=== PATIENT | male | born 1975 | race Caucasian/White ===

== ENCOUNTER → 2020-01-23 14:01 | Outpatient (BNVA) | payer OTHER, SELFPAY | PROVIDERS: PCP Internal Medicine; Visit Provider Internal Medicine | DX: G47.33 Obstructive sleep apnea (adult) (pediatric) (principal); J30.9 Allergic rhinitis, unspecified; E66.8 Other obesity; Z68.34 Body mass index [BMI] 34.0-34.9, adult; Z99.89 Dependence on other enabling machines and devices | CPT/HCPCS: 99213 ==

== ENCOUNTER 2020-02-17 09:39 | Emergency (ER) | payer OTHER, SELFPAY ==
--- NOTE | 2020-02-17 09:53 | ED_ITS ---
HPI - Chest Pain General Chief Complaint: Chest Pain Stated Complaint: sob Time Seen by Provider: 02/17/20 09:53 Source: patient Mode of arrival: ambulatory Limitations: no limitations History of Present Illness MD complaint: chest pain Onset (ago): day(s) (last night) Timing of current episode: constant Prior episodes: No Onset: during rest Pain location: substernal Pain radiation: none Severity: moderate Quality: tightness Relieving factors: nothing Exacerbating factors: other (supine) Associated symptoms: nausea and dyspnea Treatment prior to arrival: none Related Data Home Medications Medication Instructions Recorded Confirmed albuterol sulfate 90 mcg/actuation 2 puff PO Q4-6H PRN 01/18/20 01/23/20 aerosol inhaler famotidine 20 mg tablet 20 mg PO BID 01/18/20 01/23/20 flu vacc [id number] 6mos up(PF) ml IM 01/18/20 01/23/20 fluticasone propionate 50 2 spray INTRANASAL DAILY 01/18/20 01/23/20 mcg/actuation nasal spray,suspension hydrochlorothiazide 12.5 mg tablet 12.5 mg PO DAILY 01/18/20 01/23/20 loratadine 10 mg tablet 10 mg PO DAILY 01/18/20 01/23/20 Previous Rx's Medication Instructions Recorded cyclobenzaprine 10 mg PO TID PRN #10 tab 02/17/20 Allergies Allergy/AdvReac Type Severity Reaction Status Date / Time No Known Drug Intolerances Allergy Mild UNKNOWN Verified 01/23/20 14:09 Review of Systems Review of Systems: Constitutional : No Weight loss, No Fever, No Chills ENT/Mouth : No sore throat, No Rhinorrhea Eyes: No Eye Pain, No Swelling Cardiovascular : pos Chest Pain, pos SOB, no Dyspnea on Exertion, No Orthopnea, No Edema, No Palpitations Respiratory : No Cough, No Sputum Gastrointestinal : pos Nausea, No Vomiting, No Diarrhea, No abdominal Pain, No Hematochezia, No Melena Genitourinary : No Dysuria, No Urinary Frequency Musculoskeletal : No joint pain, No Myalgias, No Joint Swelling Skin : No Skin Lesions, No rash Neuro : No Weakness, No Numbness, No Dizziness, No Headache Psych : No Anxiety/Panic, No Depression Heme/Lymph: No Bruising, No Lymphadenopathy Endocrine : No Polyuria, No Polydipsia All other systems reviewed and are negative [facility] Past Medical History Medical History Allergic rhinitis due to allergen Cough MARIAN (obstructive sleep apnea) MARIAN on CPAP Social History Social History Alcohol intake: never Smoking Status: Never smoker Use of substances other than those prescribed or required for medical reasons: No Advance Directives: No Advance Directives Information Provided: No Physical Exam Vital Signs: Vital Signs: Vital Signs Temp Pulse Resp BP Pulse Ox 02/17/20 09:55 98.1 F 81 16 119/71 96 Body Mass Index 35.2 Appearance: Alert. Oriented X3. No acute distress. Eyes: Pupils equal, round and reactive to light. ENT: Pharynx normal. Neck: Normal inspection. Neck supple. CVS: Normal heart rate and rhythm. Pulses normal. Respiratory: No respiratory distress. Breath sounds normal. Abdomen: Soft and nontender. Skin: Skin warm and dry. Normal skin color. Normal skin turgor. Extremities: No lower extremity edema. No calf ttp Neuro: Oriented X 3. No motor deficit. No sensory deficit. Course Course Course Narrative: negative workup stable for DC MDM - Chest Pain MDM Narrative Medical decision making narrative: 44 yo male with chronic coug and HTN, nonsmoker here with chest tightness since last night, does suffer from some anxiety, no recent infections at this time will need troponin x 1, CXR, EKG, IV Toradol for pain, distal symmetric pulses intact, PERC negative, low susp for ACS Lab Data Result diagrams: 02/17/20 10:24 02/17/20 10:24 Labs: Lab Results 02/17/20 02/17/20 02/17/20 Range/Units 10:24 10:24 10:24 WBC 6.5 (4.8-10.8) X10*3/uL RBC 5.00 (4.60-5.80) X10*6/uL Hgb 14.5 (14.0-18.0) g/dl Hct 43.7 (42-52) % MCV 87.4 (80-98) fL MCH 29.0 (27.0-33.0) pg MCHC 33.2 (31.0-36.0) g/dl RDW 13.2 (11.0-16.0) % Plt Count 245 (160-400) X10*3/uL MPV 10.4 (9.4-12.4) fL Immature Gran % (Auto) 0.6 H (0.0-0.4) % Neut % (Auto) 62.2 (45-73) % Lymph % (Auto) 28.2 (20-40) % [place] % (Auto) 5.4 (2-11) % Eos % (Auto) 3.1 (0-4) % Baso % (Auto) 0.5 (0-2) % Lymph # (Auto) 1.8 (1.2-4.9) X10*3/uL [place] # (Auto) 0.4 (0.1-1.2) X10*3/uL Eos # (Auto) 0.2 (0.0-0.4) X10*3/uL Baso # (Auto) 0.0 (0.0-0.2) X10*3/uL Abs Immat Gran (auto) 0.04 H (0.00-0.03) X10*3/uL Absolute Neuts (auto) 4.0 (2.0-8.3) X10*3/uL Absolute Nucleated RBC 0.000 (0.0-0.012) X10*3/uL Nucleated RBC % (auto) 0.0 (0.0-0.2) /100WBC Hold Blue Top Sodium 137 (135-145) mmol/L Potassium 4.3 (3.3-5.1) mmol/l Chloride 103 (96-108) mmol/L Carbon Dioxide 25 (22-29) mmol/L Anion Gap 13 (12-20) BUN 13 (9-16) mg/dL Creatinine 1.01 (0.5-1.4) mg/dL Estim Creat Clear Calc 111.9 Estimated GFR > 60 Random Glucose 142 H (60-115) mg/dL Calcium 8.9 (8.4-10.2) mg/dL Magnesium (1.6-2.6) mg/dL Total Bilirubin (0.0-1.0) mg/dL Direct Bilirubin (0.0-0.5) mg/dL AST (5-37) U/L ALT (0-40) U/L Alkaline Phosphatase (39-117) U/L Troponin I High Sens (<3.5-35.0) ng/L B-Natriuretic Peptide < 10 (<100) pg/mL Total Protein (6.5-8.0) g/dL Albumin (3.5-5.0) g/dL Lipase (8-78) U/L 02/17/20 02/17/20 02/17/20 Range/Units 10:24 10:24 10:24 WBC (4.8-10.8) X10*3/uL RBC (4.60-5.80) X10*6/uL Hgb (14.0-18.0) g/dl Hct (42-52) % MCV (80-98) fL MCH (27.0-33.0) pg MCHC (31.0-36.0) g/dl RDW (11.0-16.0) % Plt Count (160-400) X10*3/uL MPV (9.4-12.4) fL Immature Gran % (Auto) (0.0-0.4) % Neut % (Auto) (45-73) % Lymph % (Auto) (20-40) % [place] % (Auto) (2-11) % Eos % (Auto) (0-4) % Baso % (Auto) (0-2) % Lymph # (Auto) (1.2-4.9) X10*3/uL [place] # (Auto) (0.1-1.2) X10*3/uL Eos # (Auto) (0.0-0.4) X10*3/uL Baso # (Auto) (0.0-0.2) X10*3/uL Abs Immat Gran (auto) (0.00-0.03) X10*3/uL Absolute Neuts (auto) (2.0-8.3) X10*3/uL Absolute Nucleated RBC (0.0-0.012) X10*3/uL Nucleated RBC % (auto) (0.0-0.2) /100WBC Hold Blue Top SEE NOTE Sodium (135-145) mmol/L Potassium (3.3-5.1) mmol/l Chloride (96-108) mmol/L Carbon Dioxide (22-29) mmol/L Anion Gap (12-20) BUN (9-16) mg/dL Creatinine (0.5-1.4) mg/dL Estim Creat Clear Calc Estimated GFR Random Glucose (60-115) mg/dL Calcium (8.4-10.2) mg/dL Magnesium 1.9 (1.6-2.6) mg/dL Total Bilirubin 1.0 (0.0-1.0) mg/dL Direct Bilirubin 0.3 (0.0-0.5) mg/dL AST 21 (5-37) U/L ALT 44 H (0-40) U/L Alkaline Phosphatase 98 (39-117) U/L Troponin I High Sens < 3.5 (<3.5-35.0) ng/L B-Natriuretic Peptide (<100) pg/mL Total Protein 7.1 (6.5-8.0) g/dL Albumin 4.1 (3.5-5.0) g/dL Lipase 21 (8-78) U/L ECG Data ECG #1: Attestation: I personally reviewed and interpreted this ECG as follows: ECG interpretation date: 02/17/20 ECG interpretation time: 10:16 Interpretation: Rate: 73 Rhythm: NSR [place]: normal Normal P waves. Normal AMARA. Normal QRS complex. ST T wave : normal qTC: normal prior studies: no acute ischemia The study has been interpreted contemporaneously by me. . Discharge Plan Discharge Clinical Impression: Atypical chest pain Patient Disposition: Home, Self-Care Instructions: Chest Pain (ED) Prescriptions: New cyclobenzaprine 10 mg tablet 10 mg PO TID PRN (Reason: muscle spasm) Qty: 10 RF: 0 No Action hydrochlorothiazide 12.5 mg tablet 12.5 mg PO DAILY RF: 0 famotidine 20 mg tablet 20 mg PO BID RF: 0 Fluzone Quad [id number] (PF) 60 mcg (15 mcg x 4)/0.5 mL syringe IM RF: 0 fluticasone propionate 50 mcg/actuation spray,suspension 2 spray intranasal DAILY RF: 0 albuterol sulfate 90 mcg/actuation HFA aerosol inhaler 2 puff PO Q4-6H PRNRF: 0 loratadine 10 mg tablet 10 mg PO DAILY RF: 0 Referrals: Analisa Hansen MD [Primary Care Provider] - 2 days (if not better) Stand Alone Forms: Work/School Release
--- NOTE | 2020-02-17 09:54 | ECG_ITS ---
Test Reason : CP Blood Pressure : / mmHG Vent. Rate : 073 BPM Atrial Rate : 073 BPM P-R Int : 152 ms QRS Dur : 106 ms QT Int : 388 ms P-R-T Axes : 041 000 034 degrees QTc Int : 427 ms Normal sinus rhythm RSR' or QR pattern in V1 suggests right ventricular conduction delay Otherwise normal ECG When compared with ECG of 13-JUL-2015 21:41, Vent. rate has decreased BY 36 BPM Questionable change in QRS axis Referred By: Jane Webb Electronically Signed By:REGINALDO GORE MD
--- NOTE | 2020-02-17 09:54 | XR_ITS ---
EXAMINATION: XR CHEST CLINICAL INFORMATION: Chest pain COMPARISON: Chest radiographs 10/07/2019, 07/13/2015 TECHNIQUE: Portable upright AP view of the chest was obtained. FINDINGS: The lungs are clear. There is no pneumothorax, pleural reaction, airspace consolidation, groundglass opacity. There are low lung volumes. Heart is likely within limits of normal size for portable AP view with low lung volume. The hilar and mediastinal contours are normal. No visible acute bony abnormality. XR/XR chest 1V IMPRESSION: Unremarkable examination.
[2020-02-17 09:55] VITALS: BP 119/71; PULSE 81; RESP 16; TEMP 36.7; O2SAT 96; BMI 35.2
[2020-02-17] MEDS: ondansetron HCL 4 MG/2 ML VIAL IVPUSH (10:27)
[2020-02-17] MEDS: Ketorolac Tromethamine 30 MG/ML VIAL IVPUSH (10:27)
[2020-02-17 10:30] LABS: MANUAL DIFF FLAG NO
[2020-02-17 10:34] LABS: Basophils Percent Auto 0.5 % (0-2); Eosinophils Absolute Auto 0.2 X10*3/uL (0.0-0.4); Eosinophils Percent Auto 3.1 % (0-4); Hematocrit 43.7 % (42-52); Hemoglobin 14.5 g/dl (14.0-18.0); Imm Gran Abs Auto 0.04 X10*3/uL (0.00-0.03); Imm Gran Pct Auto 0.6 % (0.0-0.4); Lymphocytes Absolute Auto 1.8 X10*3/uL (1.2-4.9); Lymphocytes Percent Auto 28.2 % (20-40); Mean Corpuscular HGB Conc 33.2 g/dl (31.0-36.0); Mean Corpuscular Volume 87.4 fL (80-98); Mean Platelet Volume 10.4 fL (9.4-12.4); Monocytes Absolute Auto 0.4 X10*3/uL (0.1-1.2); Monocytes Percent Auto 5.4 % (2-11); Neutrophils Percent Auto 62.2 % (45-73); Platelet Count 245 X10*3/uL (160-400); Red Cell Distribution Width 13.2 % (11.0-16.0); White Blood Count 6.5 X10*3/uL (4.8-10.8)
[2020-02-17 11:15] LABS: B Type Natriuretic Peptide < 10 pg/mL (<100); Troponin-I High Sensitivity < 3.5 ng/L (<3.5-35.0)
[2020-02-17 11:17] LABS: Alanine Aminotransferase 44 U/L (0-40); Albumin Level 4.1 g/dL (3.5-5.0); Alkaline Phosphatase 98 U/L (39-117); Aspartate Amino Transferase 21 U/L (5-37); Bilirubin Direct 0.3 mg/dL (0.0-0.5); Lipase 21 U/L (8-78); Magnesium 1.9 mg/dL (1.6-2.6); Total Protein 7.1 g/dL (6.5-8.0)
[2020-02-17 11:41] LABS: Anion Gap 13 (12-20); Blood Urea Nitrogen 13 mg/dL (9-16); Calcium 8.9 mg/dL (8.4-10.2); Carbon Dioxide 25 mmol/L (22-29); Chloride 103 mmol/L (96-108); Creatinine Clr Calc Pharmacy 111.9; Estimated Glomerular Filt Rate > 60; Glucose Random 142 mg/dL (60-115); Potassium 4.3 mmol/l (3.3-5.1); Sodium 137 mmol/L (135-145)
== END 2020-02-17 11:57 | disposition home or self-care (01) ==
PROVIDERS: Emergency Provider Emergency Medicine; PCP Internal Medicine
DX: R07.89 Other chest pain (principal); Z79.899 Other long term (current) drug therapy
CPT/HCPCS: 36415; 71045; 80048; 80076; 83690; 83735; 83880; 84484; 85025; 93005; 96374; 96375; 99284; J1885; J2405

== ENCOUNTER → 2020-09-02 08:39 | Outpatient (BNVA) | payer OTHER, SELFPAY | PROVIDERS: PCP Internal Medicine; Referring Provider Internal Medicine; Visit Provider Internal Medicine | DX: I10 Essential (primary) hypertension (principal); G47.33 Obstructive sleep apnea (adult) (pediatric); R06.02 Shortness of breath; R00.2 Palpitations; Z99.89 Dependence on other enabling machines and devices | CPT/HCPCS: 93005; 99202 ==

== ENCOUNTER 2020-09-16 10:13 | Outpatient (REF) | payer OTHER, SELFPAY ==
--- NOTE | 2020-09-16 10:17 | EMG_ITS ---
HISTORY: This is a 44-year-old man with a 1-year history of bilateral intermittent nocturnal hand numbness couple of days a week. CURRENT MEDICATIONS: Loratadine and vitamin D. NEUROLOGICAL EXAMINATION: Cranial nerves II through XII normal. Muscle tone and strength are normal in all 4 extremities. Deep tendon reflexes symmetrical. Plantar responses are flexor. IMPRESSION: Rule out carpal tunnel syndrome. NERVE CONDUCTION EMG STUDY: Normal electrodiagnostic study of both upper extremities with no evidence of carpal tunnel syndrome or nerve entrapment. Normal EMG of the left C5 through T1 innervated muscles. MD MAREN Baca/CARLY / [id number]
== END 2020-09-16 10:14 | disposition home or self-care (01) ==
LOC: HO.NEURO 10:13
PROVIDERS: Visit Provider Internal Medicine
DX: R20.0 Anesthesia of skin (principal)
CPT/HCPCS: 95885; 95913

== ENCOUNTER → 2020-11-05 13:43 | Outpatient (REF) | payer OTHER, SELFPAY ==
--- NOTE | 2020-11-05 13:46 | CA_ITS ---
Transthoracic Echocardiogram Patient (Last, First, Middle): Boy Kenny, Gender: Male Date of : 1975 Age: 45 Procedure Date: 11/05/2020 Procedure Type: Transthoracic Echocardiogram Location: OP Height: 172.72 cm Weight: 104.33 kg BSA: 2.17 m2 Heart Rate: bpm BP: 124 / 80 mmHg Accounts Payable Lead: SRINIVASA/ROB Referring MD: Po Olivares MD Rn Telehealth: Marcello Beach MD Symptoms: R06.02 - Shortness of breath Study Quality: Fair/contrast ECG Rhythm: Sinus Conclusions: - 1. Normal LV systolic function with grade 1 diastolic dysfunction 2. Normal cardiac valvular Doppler 3. Normal RV systolic pressure 4. No pericardial effusion Findings Procedure Information Contrast agent, definity, is being given per protocol without apparent complications. Left Ventricle Normal left ventricular size, thickness, and systolic function. The visually estimated ejection fraction is between 60-65%. Spectral Doppler is indicative of an impaired relaxation filling pattern. E/E prime ratio is <8, consistent with normal filling pressures. Evidence suggests grade I (mild) diastolic dysfunction. Right Ventricle The right ventricle was not well visualized. Atria The left atrium is normal in size. Interatrial shunt cannot be excluded. The right atrium was not well visualized. Aortic Valve Normal aortic valve structure and function. There is no aortic valve stenosis. There is no aortic valve regurgitation. Mitral Valve Normal mitral valve structure and function. There is trace mitral valve regurgitation. There is no mitral valve stenosis. Pulmonic Valve The pulmonic valve was not well visualized. Tricuspid Valve Likely normal tricuspid valve structure and function. There is trace tricuspid valve regurgitation. The right ventricular systolic pressure is normal. The right ventricular systolic pressure is 16 mmHg. There is no evidence of pulmonary hypertension. Great Vessels All visible segments of the aorta are normal in size. The pulmonary artery was not well visualized. Venous The inferior vena cava was not well visualized. Pericardium/Pleural There is no evidence of pericardial effusion. Prior Study Comparison No prior study available for comparison. Measurements 2D Linear Measurements IVSd: 1.41 0.6-0.9/0.6-1.0 cm LVIDd: 4.08 3.9-5.3/4.2-5.9 cm LVIDd Index: 1.88 2.4-3.2/2.2-3.1 cm/m2 LVIDs: 2.59 2.0-3.6 cm LVPWd: 1.24 0.7-1.1 cm Ao Root: 3.20 2.1-3.5 cm LA Diam: 3.50 2.7-3.8/3.0-4.0 cm LAIDs Index: 1.61 1.5-2.3 cm/m2 LV Mass: 246.38 67-162/88-224 g LV Mass Index: 113.54 43-95/49-115 g/m2 LVOT Diam: 1.90 3.0+(-)1.3 cm 2D Systolic Function EF 4C: 54.50 >55% EF 2C: 59.30 >55% Mitral Valve MV Pk E: 0.81 MV PK A: 0.88 MV Decel Time: 191.00 E/A: 0.90 E'Lateral: 9.14 E'Medial: 13.50 E/E' Med: 6.00 E/E' Lat: 8.90 PHT: 56.00 MVA PHT: 3.93 Decel Davidson: 4.23 Aortic Valve AoV Pk Cheo: 1.43 AoV Mn Cheo: 1.05 AoV VTI: 0.22 AoV Pk Grad: 8.00 Aov Mn Grad: 5.00 YENIFER Cont.VTI: 2.58 LVOT LVOT Pk Cheo: 1.22 LVOT Mn Cheo: 0.80 LVOT VTI: 0.20 LVOT Pk Grad: 6.00 LVOT Mn Grad: 3.00 LVOT Diam: 1.90 LVOT Area: 2.84 Diastolic Function MV Pk E: 0.81 MV Pk A: 0.88 E/A: 0.90 E'Medial: 13.50 E/E' Med: 6.00 E' Laterial: 9.14 E/E' Lat: 8.90 Right Ventricle TAPSE (mm): 2.53 Tricuspid Valve TR Pk Cheo: 1.79 TR Pk Grad: 13.00 RA Press: 3.00 RVSP: 16.00 Great Vessels Aorta Ao Root-2D: 3.20 2.0-3.7 cm Ao Asc: 3.00 2.1-3.4 cm Ao Arch: 2.70 Updated in Other Vendor System with Status of Final Marcello Beach MD electronically signed on 11/05/2020 4:20:37 PM with status of Final
== END ==
LOC: HO.CARD 13:43
PROVIDERS: PCP Internal Medicine; Visit Provider Internal Medicine
DX: R06.02 Shortness of breath (principal)
CPT/HCPCS: 93306; Q9957

== ENCOUNTER → 2021-03-15 20:22 | Outpatient (REF) | payer OTHER, SELFPAY | LOC: HO.SL 20:22 | PROVIDERS: PCP Internal Medicine; Visit Provider Internal Medicine | DX: G47.33 Obstructive sleep apnea (adult) (pediatric) (principal) | CPT/HCPCS: 95811 ==

== ENCOUNTER → 2021-04-26 13:37 | Outpatient (BNVA) | payer OTHER, SELFPAY | PROVIDERS: PCP Internal Medicine; Visit Provider Internal Medicine | DX: J30.9 Allergic rhinitis, unspecified (principal); G47.33 Obstructive sleep apnea (adult) (pediatric); E66.9 Obesity, unspecified; R05.9 Cough, unspecified | CPT/HCPCS: 99202 ==

== ENCOUNTER → 2021-10-07 14:41 | Outpatient (BNVA) | payer OTHER, SELFPAY | PROVIDERS: PCP Internal Medicine; Visit Provider Internal Medicine | DX: G47.33 Obstructive sleep apnea (adult) (pediatric) (principal); E66.9 Obesity, unspecified; J30.9 Allergic rhinitis, unspecified; Z68.36 Body mass index [BMI] 36.0-36.9, adult | CPT/HCPCS: 99212 ==

== ENCOUNTER 2021-11-17 15:35 | Outpatient (REF) | payer OTHER, SELFPAY ==
--- NOTE | ~2021-11-17 | XR_ITS ---
EXAMINATION: XR SCOLIOSIS CLINICAL INFORMATION: 46-year-old male patient with pain of the thoracic spine. COMPARISON: MRI of the lumbosacral spine on 09/16/2018. TECHNIQUE: AP erect views of the thoracolumbar spine, limited study. FINDINGS: This is to be considered a limited study in that only frontal views are obtained. No acute bone abnormalities are seen. The paraspinal soft tissues appear unremarkable. XR/XR scoliosis survey IMPRESSION: Unremarkable (limited) examination.
--- NOTE | ~2021-11-17 | XR_ITS ---
EXAMINATION: XR SHOULDER, RIGHT XR SHOULDER, LEFT CLINICAL INFORMATION: Bilateral shoulder pain COMPARISON: Radiographs right shoulder 10/08/2013 and left shoulder 03/13/2010. TECHNIQUE: Each shoulder is imaged in 4 views. There are total of 8 views. FINDINGS: Right: Normal bony mineralization. No fracture or dislocation. The acromioclavicular alignment is normal. The glenohumeral joint is unremarkable. No visible rotator cuff calcifications. Left: Normal bony mineralization. No fracture or dislocation. The acromioclavicular alignment is normal. The glenohumeral joint is unremarkable. No visible rotator cuff calcifications. XR/XR shoulder LT min 2V IMPRESSION: Unremarkable bilateral shoulders. No visible rotator cuff calcifications.
--- NOTE | ~2021-11-17 | XR_ITS ---
EXAMINATION: XR SHOULDER, RIGHT XR SHOULDER, LEFT CLINICAL INFORMATION: Bilateral shoulder pain COMPARISON: Radiographs right shoulder 10/08/2013 and left shoulder 03/13/2010. TECHNIQUE: Each shoulder is imaged in 4 views. There are total of 8 views. FINDINGS: Right: Normal bony mineralization. No fracture or dislocation. The acromioclavicular alignment is normal. The glenohumeral joint is unremarkable. No visible rotator cuff calcifications. Left: Normal bony mineralization. No fracture or dislocation. The acromioclavicular alignment is normal. The glenohumeral joint is unremarkable. No visible rotator cuff calcifications. XR/XR shoulder RT min 2V IMPRESSION: Unremarkable bilateral shoulders. No visible rotator cuff calcifications.
== END 2021-11-17 15:36 | disposition home or self-care (01) ==
LOC: HO.XRAY 15:35
PROVIDERS: Absent Provider Internal Medicine; PCP Internal Medicine; Visit Provider Registered Nurse
DX: M54.6 Pain in thoracic spine (principal); M25.512 Pain in left shoulder; M25.511 Pain in right shoulder
CPT/HCPCS: 72082; 73030

== ENCOUNTER → 2022-07-28 09:18 | Outpatient (BNVA) | payer OTHER, SELFPAY | PROVIDERS: PCP Internal Medicine; Visit Provider Internal Medicine | DX: G47.33 Obstructive sleep apnea (adult) (pediatric) (principal); J30.9 Allergic rhinitis, unspecified; E66.9 Obesity, unspecified; Z68.36 Body mass index [BMI] 36.0-36.9, adult | CPT/HCPCS: 99212 ==

== ENCOUNTER 2022-10-19 11:00 | Outpatient (RCR) | payer OTHER, SELFPAY | END 2022-12-12 08:38 | disposition home or self-care (01) | LOC: HO.PT 11:00 | PROVIDERS: PCP Internal Medicine; Visit Provider Internal Medicine | DX: M47.816 Spondylosis without myelopathy or radiculopathy, lumbar region (principal) | CPT/HCPCS: 97110; 97140; 97161 ==

== ENCOUNTER 2023-01-25 10:13 | Outpatient (AMB) | payer OTHER, SELFPAY ==
[2023-01-25 10:25] VITALS: BP 104/80; PULSE 78; O2SAT 98; BMI 36.2
--- NOTE | 2023-01-25 10:25 | MHC.OFFVIS ---
Intake Vital Signs 01/25/23 10:25 Height 5 ft 8 in Weight 238 lb BMI 36.2 BP 104/80 Blood Pressure Location Lt brachial Position Sitting Pulse 78 Pulse Source Pulse Oximeter Pulse Oximetry (%) 98 Oxygen Delivery Method Room Air Intake Visit Reasons: Obstructive sleep apnea Intake Note: pt is here for follow up of MARIAN and doing well, but states post nasal drip tickle since 2019, and it is still there. 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 Allergies No Known Drug Intolerances Allergy (Mild, Verified 01/25/23 10:30) UNKNOWN Medication List - Last Reconciled 01/25/23 by Yolanda Meza MD bupropion HCl 150 mg PO BEDTIME cholecalciferol (vitamin D3) 25 mcg PO DAILY citalopram 10 mg PO DAILY clonazepam 2 mg PO DAILY PRN flu vacc [id number] 6mos up(PF) mL IM fluticasone propionate 50 mcg/actuation 2 sprays intranasal DAILY loratadine 10 mg PO DAILY 30 days omeprazole 20 mg PO DAILY Do you need a note to return to daycare/school/sports/work: No HPI Obstructive sleep apnea HPI Details This 47 years old grossly obese gentleman, with diagnosis of obstructive sleep apnea, and allergic rhinitis, comes after 6 months for follow-up He has been very compliant using the CPAP every night, for 7-8 hours per night. And has been sleeping well. The main complaint is nasal congestion with postnasal discharge which causes ticklish feeling a deep in the throat. He does use loratadine 10 mg at night. But has not been using Flonase. Breathing is okay no wheezing or cough. Mild depression and anxiety is well controlled. [facility] Medical History Obesity (BMI 30-39.9) Essential hypertension Allergic rhinitis due to allergen Cough MARIAN on CPAP MARIAN (obstructive sleep apnea) Social History Alcohol intake: never Patient Tobacco Use Status: Never used Tobacco Review of Systems Const All systems reviewed & are unremarkable except as noted in HPI and below Eyes Reports no additional complaints ENT Reports nasal congestion and Reports post nasal drip Card Reports no additional complaints Resp Reports cough (Precipitated by ticklish is feeling in the throat) and Denies wheezing GI Reports heartburn (GERD symptoms controlled with omeprazole) Reports no additional complaints Musc Reports no additional complaints Skin/Breast Reports system reviewed and no additional complaints, except as documented Neuro Reports no additional complaints Psych Reports no additional complaints Aller/Immun Denies wheezing Physical Exam Const General: healthy appearing (Except for being overweight), comfortable, no acute distress, alert and awake Orientation/consciousness: patient oriented x3 HEENT Head: Yes normal to inspection General nose exam: No nasal polyps present, mucous membranes and turbinates abnormal (Has moderate hypertrophy of the nasal turbinates), No nasal discharge present and Other nasal findings present (No significant nasal congestion or blockage at this time) Face and sinus: Yes sinuses nontender Mouth: oropharynx normal Throat: Yes posterior oropharynx normal Eyes General: appearance normal, both eyes and all related structures Neck Neck: Yes normal visual inspection, Yes no lymphadenopathy, Yes trachea midline and Yes no JVD Thyroid: Thyroid normal Chest Chest palpation & inspection: normal inspection of the chest, normal palpation of entire chest wall and no tenderness Resp Other: Percussion note resonant. He has equal breath sounds on both sides. No wheezes or crepitations are heard. Cardio Palpation: normal PMI Rate: regular rate Rhythm: regular rhythm Heart sounds: no gallops and no murmurs Peripheral pulses: Peripheral pulses 2+ throughout GI Palpation (GI): Soft to palpation, nontender, No hepatosplenomegaly present and no masses Auscultation: normal bowel sounds Back/Spine/Pelvis Thoracic/Lumbar Spine: thoracic and lumbar spine normal to inspection Skin General skin exam: no rashes or lesions noted Neuro General: patient oriented x3 and no focal motor deficits Cranial nerves: Yes CN's II-XII intact bilaterally Extrem General: Yes normal to inspection, Yes no clubbing, cyanosis or edema and Yes no calf tenderness Psych Appearance: grossly normal and well kempt Speech and movement: Normal speech and movement present Results Reviewed Results Reviewed: Compliance report indicates that he has been using 30/30 nights, 100%. Average use per night is 6-8 hours. Assessment & Plan Assessment & Plan (1) Obesity (BMI 30-39.9): Comment: Patient is aware of this problem. He is trying to lose weight slowly, but and lost 5 LBs in last 6 months . Encouraged to keep on loosing more weight . Code(s): E66.9 - Obesity, unspecified (2) MARIAN (obstructive sleep apnea): Comment: HE IS A CONFIRMED CASE OF MODERATELY SEVERE OBSTRUCTIVE SLEEP APNEA. TREATED WITH CPAP WHICH HE USES VERY REGULARLY WITH GOOD RESULTS . ( NASAL AIR - 10 CMs ) Code(s): G47.33 - Obstructive sleep apnea (adult) (pediatric) (3) Allergic rhinitis due to allergen: Comment: This is a chronic problem but more pronounced in the last 2 years. Advised to continue : FLONASE NASAL INH DAILY ( Script sent again ) , AND ZERTEC OR LORATDINE 10 MG ONCE A DAY ,PRN . Code(s): J30.9 - Allergic rhinitis, unspecified Medications: Changed From fluticasone propionate 50 mcg/actuation 2 sprays intranasal DAILY To fluticasone propionate 50 mcg/actuation 2 sprays intranasal DAILY 16 grams 5RF 30 days Coding Level of Care Code Est Pt Level 3 (24712) Diagnoses Obesity (BMI 30-39.9) E66.9 MARIAN (obstructive sleep apnea) G47.33 Allergic rhinitis due to allergen J30.9
== END 2023-01-25 10:41 | disposition home or self-care (01) ==
PROVIDERS: PCP Internal Medicine; Visit Provider Internal Medicine
DX: E66.9 Obesity, unspecified (principal); G47.33 Obstructive sleep apnea (adult) (pediatric); J30.9 Allergic rhinitis, unspecified
CPT/HCPCS: 99213

== ENCOUNTER → 2023-01-25 10:13 | Outpatient (BNVA) | payer OTHER, SELFPAY | PROVIDERS: Visit Provider Internal Medicine | DX: G47.33 Obstructive sleep apnea (adult) (pediatric) (principal); J30.9 Allergic rhinitis, unspecified; E66.9 Obesity, unspecified; Z68.36 Body mass index [BMI] 36.0-36.9, adult | CPT/HCPCS: 99212 ==

== ENCOUNTER 2023-02-08 08:25 | Outpatient (REF) | payer OTHER, SELFPAY ==
[2023-02-08 11:07] LABS: MANUAL DIFF FLAG NO
[2023-02-08 11:24] LABS: Basophils Absolute Auto 0.1 X10*3/uL (0.0-0.2); Basophils Percent Auto 0.6 % (0-2); Eosinophils Absolute Auto 0.2 X10*3/uL (0.0-0.4); Eosinophils Percent Auto 2.7 % (0-4); Hematocrit 44.9 % (42.0-52.0); Hemoglobin 14.6 g/dl (14.0-18.0); Imm Gran Abs Auto 0.09 X10*3/uL (0.00-0.03); Imm Gran Pct Auto 1.2 % (0.0-0.4); Lymphocytes Absolute Auto 2.1 X10*3/uL (1.2-4.9); Mean Corpuscular HGB Conc 32.5 g/dl (31.0-36.0); Mean Corpuscular Hemoglobin 28.6 pg (27.0-33.0); Mean Corpuscular Volume 87.9 fL (80.0-98.0); Mean Platelet Volume 10.7 fL (9.4-12.4); Monocytes Absolute Auto 0.5 X10*3/uL (0.1-1.2); Monocytes Percent Auto 6.3 % (2-11); Neutrophils Absolute Auto 4.8 x10*3/uL (2.0-8.3); Neutrophils Percent Auto 62.2 % (45-73); Platelet Count 264 X10*3/uL (160-400); Red Blood Count 5.11 X10*6/uL (4.60-5.80); Red Cell Distribution Width 13.5 % (11.0-16.0); White Blood Count 7.7 X10*3/uL (4.8-10.8)
[2023-02-08 11:28] LABS: Estimated Average Glucose 108 mg/dL; Hemoglobin A1c % 5.4 % (<6.0)
[2023-02-08 11:50] LABS: HIV AB/AG Nonreactive (Nonreactive); HIV Num 1 0.06 S/CO (0.00-0.99); ~HepC Num1 0.03 S/CO (0.00-0.79); ~Hepatitis C Antibody Nonreactive (Nonreactive)
[2023-02-08 12:01] LABS: Alanine Aminotransferase 38 U/L (0-40); Alkaline Phosphatase 101 U/L (39-117); Anion Gap 12 (12-20); Aspartate Amino Transferase 21 U/L (5-37); Bilirubin Direct 0.2 mg/dL (0.0-0.5); Bilirubin Total 0.5 mg/dL (0.0-1.0); Blood Urea Nitrogen 14 mg/dL (9-16); Calcium 9.6 mg/dL (8.4-10.2); Carbon Dioxide 24 mmol/L (22-29); Chloride 107 mmol/L (96-108); Cholesterol 124 mg/dL (<200); Estimated Glomerular Filt Rate > 60; Glucose Random 116 mg/dL (60-115); HDL Cholesterol 19 mg/dL (>40); LDL Cholesterol Calculated 29 mg/dL (<100); Potassium 4.4 mmol/L (3.3-5.1); Sodium 139 mmol/L (135-145); Total Protein 7.4 g/dL (6.5-8.0); Triglycerides 382 mg/dL (<150)
== END 2023-02-08 08:26 | disposition home or self-care (01) ==
LOC: HO.HHCL 08:25
PROVIDERS: Visit Provider Internal Medicine
DX: I10 Essential (primary) hypertension (principal); G47.33 Obstructive sleep apnea (adult) (pediatric); R73.01 Impaired fasting glucose; E66.09 Other obesity due to excess calories
CPT/HCPCS: 36415; 80048; 80061; 80076; 83036; 85025; 86803; 87389

== ENCOUNTER 2023-07-26 10:33 | Outpatient (AMB) | payer OTHER, SELFPAY ==
[2023-07-26 10:44] VITALS: BP 110/78; PULSE 100; O2SAT 96; BMI 37.7
--- NOTE | 2023-07-26 10:44 | MHC.OFFVIS ---
Intake Vital Signs 07/26/23 10:44 Height 5 ft 8 in Weight 248 lb 0.321 oz BMI 37.7 BP 110/78 Blood Pressure Location Lt brachial Position Sitting Pulse 100 Pulse Source Pulse Oximeter Pulse Oximetry (%) 96 Oxygen Delivery Method Room Air Intake Visit Reasons: Obstructive sleep apnea Intake Note: pt is here for follow up and states he is doing well. Single Needle Operator Required: No Allergies No Known Drug Intolerances Allergy (Mild, Verified 07/26/23 11:03) UNKNOWN Medication List - Last Reconciled 07/26/23 by Yolanda Meza MD bupropion HCl 150 mg PO BEDTIME cholecalciferol (vitamin D3) 25 mcg PO DAILY citalopram 10 mg PO DAILY clonazepam 2 mg PO DAILY PRN flu vacc [id number] 6mos up(PF) mL IM fluticasone propionate 50 mcg/actuation 2 sprays intranasal DAILY 30 days loratadine 10 mg PO DAILY omeprazole 20 mg PO DAILY Do you need a note to return to daycare/school/sports/work: No HPI Obstructive sleep apnea HPI Details 47 years old gentleman who is grossly obese and a confirmed case of obstructive sleep apnea, comes after. 6 months for follow-up He has been a regular user of CPAP every day and sleeps well. Has not been able to lose weight. Nasal congestion is well controlled with use of Flonase and he uses loratadine p.r.n. He has no issue with the CPAP machine or mask. [facility] Medical History Obesity (BMI 30-39.9) Essential hypertension Allergic rhinitis due to allergen Cough MARIAN on CPAP MARIAN (obstructive sleep apnea) Social History Alcohol intake: never Patient Tobacco Use Status: Never used Tobacco Review of Systems Const All systems reviewed & are unremarkable except as noted in HPI and below Eyes Reports no additional complaints ENT Reports nasal congestion and Reports post nasal drip Card Reports no additional complaints Resp Reports cough (Precipitated by ticklish is feeling in the throat) and Denies wheezing GI Reports heartburn (GERD symptoms controlled with omeprazole) Reports no additional complaints Musc Reports no additional complaints Skin/Breast Reports system reviewed and no additional complaints, except as documented Neuro Reports no additional complaints Psych Reports no additional complaints Aller/Immun Denies wheezing Physical Exam Vital Signs: Last Vital Signs Pulse 100 07/26/23 10:44 BP 110/78 07/26/23 10:44 Pulse Ox 96 07/26/23 10:44 Oxygen Delivery Method Room Air 07/26/23 10:44 BMI result Body Mass Index 37.7 Const General: healthy appearing (Except for being overweight), comfortable, no acute distress, alert and awake Orientation/consciousness: patient oriented x3 HEENT Head: Yes normal to inspection General nose exam: No nasal polyps present, mucous membranes and turbinates abnormal (Has moderate hypertrophy of the nasal turbinates), No nasal discharge present and Other nasal findings present (No significant nasal congestion or blockage at this time) Face and sinus: Yes sinuses nontender Mouth: oropharynx normal Throat: Yes posterior oropharynx normal Eyes General: appearance normal, both eyes and all related structures Neck Neck: Yes normal visual inspection, Yes no lymphadenopathy, Yes trachea midline and Yes no JVD Thyroid: Thyroid normal Chest Chest palpation & inspection: normal inspection of the chest, normal palpation of entire chest wall and no tenderness Resp Other: Percussion note resonant. He has equal breath sounds on both sides. No wheezes or crepitations are heard. Cardio Palpation: normal PMI Rate: regular rate Rhythm: regular rhythm Heart sounds: no gallops and no murmurs Peripheral pulses: Peripheral pulses 2+ throughout GI Palpation (GI): Soft to palpation, nontender, No hepatosplenomegaly present and no masses Auscultation: normal bowel sounds Back/Spine/Pelvis Thoracic/Lumbar Spine: thoracic and lumbar spine normal to inspection Skin General skin exam: no rashes or lesions noted Neuro General: patient oriented x3 and no focal motor deficits Cranial nerves: Yes CN's II-XII intact bilaterally Extrem General: Yes normal to inspection, Yes no clubbing, cyanosis or edema and Yes no calf tenderness Psych Appearance: grossly normal and well kempt Speech and movement: Normal speech and movement present Results Reviewed Results Reviewed: Compliance report for the last 30 nights is as follows. Used 30/30 nights, 100%. Average usage per night 8 hours 46 minutes. Pressure setting 10 cm. No air leak. Residual AHI 3.5 Assessment & Plan Assessment & Plan (1) Obesity (BMI 30-39.9): Comment: Continues to be grossly obese. Has not been able. To lose much weight Actually has gained about 10 lb of weight since last visit. Code(s): E66.9 - Obesity, unspecified Plan: Had a good talk with him about the weight issue. Advised to start walking outdoors or do some regular exercise every day. Instructed to cut down the intake of calories. Stress that he has to start losing weight. (2) MARIAN (obstructive sleep apnea): Comment: HE IS A CONFIRMED CASE OF MODERATELY SEVERE OBSTRUCTIVE SLEEP APNEA. TREATED WITH CPAP WHICH HE USES VERY REGULARLY WITH GOOD RESULTS . ( NASAL AIR - 10 CMs ) HIS COMPLIANCE IS EXCELLENT. Code(s): G47.33 - Obstructive sleep apnea (adult) (pediatric) Plan: COMMENDED FOR GOOD COMPLIANCE AND ENCOURAGED TO KEEP ON USING IT ON A DAILY BASIS (3) Allergic rhinitis due to allergen: Comment: This is a chronic problem but more pronounced in the last 2 years. Advised to continue : FLONASE NASAL INH DAILY ( Script sent again ) , AND ZERTEC OR LORATDINE 10 MG ONCE A DAY ,PRN . Code(s): J30.9 - Allergic rhinitis, unspecified Plan: CONTINUES SAME TREATMENT PLAN Coding Level of Care Code Est Pt Level 3 (05784) Diagnoses Obesity (BMI 30-39.9) E66.9 MARIAN (obstructive sleep apnea) G47.33 Allergic rhinitis due to allergen J30.9
== END 2023-07-26 11:03 | disposition home or self-care (01) ==
PROVIDERS: PCP Internal Medicine; Visit Provider Internal Medicine
DX: E66.9 Obesity, unspecified (principal); G47.33 Obstructive sleep apnea (adult) (pediatric); J30.9 Allergic rhinitis, unspecified
CPT/HCPCS: 99213

== ENCOUNTER → 2023-07-26 10:33 | Outpatient (BNVA) | payer OTHER, SELFPAY | PROVIDERS: PCP Internal Medicine; Visit Provider Internal Medicine | DX: G47.33 Obstructive sleep apnea (adult) (pediatric) (principal); E66.9 Obesity, unspecified; J30.9 Allergic rhinitis, unspecified; Z99.89 Dependence on other enabling machines and devices | CPT/HCPCS: 99212 ==

== ENCOUNTER 2023-09-06 15:04 | Outpatient (AMB) | payer OTHER, SELFPAY ==
--- NOTE | 2023-09-06 15:16 | MHC.OFFVIS ---
Vital Signs 09/06/23 15:36 Height 5 ft 8 in Weight 242 lb 8 oz BMI 36.9 BP 132/80 Blood Pressure Location Lt brachial Position Sitting Respiration 18 Pulse 110 H Pulse Source Pulse Oximeter Pulse Oximetry (%) 97 Oxygen Delivery Method Room Air Intake Visit Reasons: lumbar spondylosis Intake Note: Patient comes in for initial visit was referred by primary care. Reports pain 0/10. Allergies No Known Drug Intolerances Allergy (Mild, Verified 07/26/23 11:03) UNKNOWN HPI Comments Details: Boy is very pleasant 47 years old gentleman who presents in my office with complains on pain in the central lower back. States his pain is started 10 years ago. He is pain became severe 3 years ago. He reports that flexing backwards hurts him more than flexing forward standing hurts him more than sitting actually sitting alleviates his pain. He reports that he can not sleep normally but he can not do activities of daily living can not take care of himself can not function normally he is on permanent disability for anxiety depression and PTSD. This patient reports today that his pain is 0/10. He reports no pain on physical examination no tenderness on palpation in the lumbar spine. He reports that his pain is intermittent and get exacerbated from time to time however now he reports no pain at all. His pain in terms of tissue damage is sharp cutting lacerating when he has it. He had physical therapy for his pain however he had no images done for his pain he had acupuncture which helped no pain and he had no injections in the past. His past medical history is negative. Negative surgical history. Denies smoking cigarettes drinking alcohol using recreational drugs. [facility] Medical History Obesity (BMI 30-39.9) Essential hypertension Allergic rhinitis due to allergen Cough MARIAN on CPAP MARIAN (obstructive sleep apnea) Social History Alcohol intake: never Patient Tobacco Use Status: Never used Tobacco Review of Systems Const All systems reviewed & are unremarkable except as noted in HPI and below ENT Reports Normal hearing present Neuro Reports Normal hearing present, Denies Abnormal speech present, Denies confusion and Denies Sensory deficit (Neuro) Psych Denies confusion Physical Exam Vital Signs: Last Vital Signs Pulse 110 H 09/06/23 15:36 Resp 18 09/06/23 15:36 BP 132/80 09/06/23 15:36 Pulse Ox 97 09/06/23 15:36 Oxygen Delivery Method Room Air 09/06/23 15:36 BMI result Body Mass Index 36.9 Const General: no acute distress; No confusion Nutritional Appearance: obese morbidly obese Orientation/consciousness: patient oriented x3 and No confusion Eyes General: appearance normal, both eyes and all related structures Pupils: Equal, round and reactive pupils present EOM: EOMs intact bilaterally Neck Neck: Yes full ROM Chest Chest palpation & inspection: normal inspection of the chest Resp Effort & Inspection: normal respiratory effort, able to speak in complete sentences, normal respiratory pattern, no audible wheezes and no cough Cardio Jugular venous distension: no JVD GI Inspection: Yes normal to inspection Back/Spine/Pelvis Other: No tenderness on palpation in paraspinal spinal region lumbar spine. Neuro General: patient oriented x3, gait normal and No confusion Cranial nerves: Yes CN's II-XII intact bilaterally, Yes Equal, round and reactive pupils present, Yes Normal hearing present and Yes Ability to bilaterally elevate shoulders present Speech: No Abnormal speech present Gait exam (Neuro): Normal gait present Motor exam (neuro): 5/5 motor strength present throughout Sensory Exam: No Sensory deficit (Neuro) Extrem General: No pedal edema Psych Speech and movement: Normal speech and movement present Affect: normal affect Attitude: cooperative Thought process: Normal thought process present Thought content: Normal thought content present Insight: Good insight present (Psych) Judgement: Good judgement present (Psych) Assessment & Plan Assessment & Plan (1) Spondylosis without myelopathy or radiculopathy, lumbar region: Code(s): M47.816 - Spondylosis without myelopathy or radiculopathy, lumbar region Category: Medical Plan Because the nature of this pain for this patient is intermittent I can not even consider this as a chronic pain syndrome. The patient is most likely suffering from spondylosis of lumbar spine however at this time it is hard to determine the nature of the condition. I recommended him when his pain will be back to give us a call and schedule appointment so we can evaluate him again in probably schedule some diagnostic injections to treat his pain. Coding Level of Care Code New Pt Level 3 (35141) Diagnoses Spondylosis without myelopathy or radiculopathy, lumbar region M47.816
[2023-09-06 15:36] VITALS: BP 132/80; PULSE 110; RESP 18; O2SAT 97; BMI 36.9
== END 2023-09-06 15:36 | disposition home or self-care (01) ==
PROVIDERS: PCP Internal Medicine; Visit Provider Anesthesiology
DX: M47.816 Spondylosis without myelopathy or radiculopathy, lumbar region (principal)
CPT/HCPCS: 99203

== ENCOUNTER → 2023-09-06 15:04 | Outpatient (BNVA) | payer OTHER, SELFPAY | PROVIDERS: PCP Internal Medicine; Visit Provider Anesthesiology | DX: M47.816 Spondylosis without myelopathy or radiculopathy, lumbar region (principal) | CPT/HCPCS: 99202 ==

== ENCOUNTER 2023-09-27 10:13 | Outpatient (REF) | payer OTHER, SELFPAY ==
--- NOTE | ~2023-09-27 | MR_ITS ---
EXAMINATION: MR LUMBAR SPINE WITHOUT CONTRAST CLINICAL INFORMATION: Low back pain x5 years, worsening prior 2 years. Difficulty walking, intermittent. No radiation to lower extremities. COMPARISON: 09/18/2018 MRI lumbar. Lumbar x-ray 11/17/2021. TECHNIQUE: MRI of the lumbar spine was obtained using routine sequences without contrast. Standard sequences were utilized. FINDINGS: Coronal Alignment: Trace levoconvex scoliosis. Sagittal Alignment: Normal lordosis. No subluxations. Lumbosacral Junction: There is a rudimentary S1-S2 disc. Otherwise numbering is anatomic with 5 nonrib-bearing fully developed vertebral bodies. Vertebral Bodies/Bone Marrow: Diffusely homogeneously low intensity bone marrow is again noted on T1 and T2-weighted imaging, nonspecific but likely related to hematopoietic/active marrow. This is unchanged from 2019. No bone marrow edema or compression deformities. Discs: Normal in height and signal with no significant loss at any level. Spinal Canal: No abnormal developmental findings. Conus Medullaris: Terminates at inferior endplate L1. Morphology and signal is normal. Distal cord is normal in signal and caliber. Fatty filum terminale. Intradural Nerve Roots: Normal. No clumping or masses. Axial Disc Space Images: T12-L1: Minimal shallow disc bulge present. No significant central canal or neural foraminal narrowing. Normal facets. No change. L1-L2: No significant central canal or neural foraminal narrowing. Normal facets. No change. L2-L3: Central disc protrusion present with annular fissuring, indenting upon the ventral thecal sac but not contacting or displacing nerve roots. This is slightly larger than previously. There is mild central canal stenosis. Mild hypertrophic facet changes are present bilaterally. The lateral recesses and neural foramen are widely patent. L3-L4: No significant central canal or neural foraminal stenosis. No change. L4-L5: Shallow disc bulge present with superimposed right foraminal and lateral to foramen protrusion of disc material, and a smaller left foraminal disc protrusion. Mild hypertrophic degenerative facet changes bilaterally. Findings have progressed mildly compared to prior. There is minimal central canal stenosis, minimal bilateral subarticular recess stenosis, and mild left greater than right neural foraminal stenosis without evidence of nerve root impingement. L5-S1: Moderate hypertrophic degenerative facet changes bilaterally, mildly progressed from the prior exam. There are broad-based protrusions of disc material in both foraminal zones extending lateral to foramen, both with foci of annular fissuring, right greater than left. No central canal or significant subarticular recess stenosis. No nerve root impingement. [id number] neural foraminal stenosis left greater than right, with contact but no definite deformation of the exiting L5 roots. Imaged SI Joints: Mild to moderate degenerative arthritis bilaterally. Paravertebral and Included Extraspinal Soft Tissues: Paraspinal musculature is normal in appearance. The aorta is normal in caliber. No adenopathy evident. Limited imaging of the kidneys demonstrates no abnormalities. MR/MR lumbar spine wo con IMPRESSION: 1. Mild progression of mild lumbar spondylosis at L2-L3, L4-L5, and L5-S1. 2. Otherwise stable examination without change. No high-grade or significant central canal, lateral recess, or neural foraminal stenosis. 3. Moderate facet degeneration and bilateral foraminal disc protrusions L5-S1, resulting in moderate bilateral neural foraminal narrowing as described. 4. No change in diffusely low T1 signal bone marrow, likely representing active/hemopoietic marrow. This can be seen in smokers. Cannot definitively exclude marrow replacement disorders. 5. See the body of the report for additional ancillary findings.
== END 2023-09-27 10:14 | disposition home or self-care (01) ==
LOC: HO.MRI 10:13
PROVIDERS: PCP Internal Medicine; Visit Provider Internal Medicine
DX: M47.816 Spondylosis without myelopathy or radiculopathy, lumbar region (principal)
CPT/HCPCS: 72148

== ENCOUNTER → 2023-09-27 10:13 | Outpatient (BNV) | payer OTHER, SELFPAY | PROVIDERS: PCP Internal Medicine; Visit Provider Radiology Diagnostic Radiology | DX: M47.816 Spondylosis without myelopathy or radiculopathy, lumbar region (principal) | CPT/HCPCS: 72148 ==

== ENCOUNTER 2023-10-22 14:15 | Emergency (ER) | payer OTHER, SELFPAY ==
--- NOTE | ~2023-10-22 | XR_ITS ---
EXAMINATION: XR KNEE, RIGHT CLINICAL INFORMATION: Pain, no injury COMPARISON: None available. TECHNIQUE: Four views of the right knee. FINDINGS: No evidence of acute fracture. No effusion Alignment is anatomic. Joint spaces are maintained. There is patellar insertional enthesopathy. Chronic tibial tubercle spurring. No suspicious soft tissue calcification.. XR/XR knee RT 3V IMPRESSION: No radiographic evidence of acute osseous abnormality.
--- NOTE | 2023-10-22 14:33 | ED_ITS ---
HPI - General Adult General Chief complaint: General Medical Stated complaint: Took too much naproxen Time Seen by Provider: 10/22/23 15:44 Related Data Home Medications ?Medication ?Instructions ?Recorded ?Confirmed flu vacc [id number] 6mos up(PF) 60 ml IM 01/18/20 07/26/23 mcg(15 mcgx4)/0.5 mL IM syringe bupropion HCl 150 mg 24 hr tablet, 150 mg PO BEDTIME 09/02/20 07/26/23 extended release cholecalciferol (vitamin D3) 25 25 mcg PO DAILY 09/02/20 07/26/23 mcg (1,000 unit) capsule citalopram 10 mg tablet 10 mg PO DAILY 09/02/20 07/26/23 omeprazole 20 mg capsule,delayed 20 mg PO DAILY 09/02/20 07/26/23 release clonazepam 2 mg tablet 2 mg PO DAILY PRN 04/26/21 07/26/23 Previous Rx's ?Medication ?Instructions ?Recorded fluticasone propionate 50 2 spray intranasal DAILY 30 days 01/25/23 mcg/actuation nasal #16 grams spray,suspension loratadine 10 mg tablet 10 mg PO DAILY for allergic 08/08/23 rhinitis #30 tabs Allergies Allergy/AdvReac Type Severity Reaction Status Date / Time No Known Drug Intolerances Allergy Mild UNKNOWN Verified 10/22/23 14:36 [facility] Past Medical History Medical History Obesity (BMI 30-39.9) Essential hypertension Allergic rhinitis due to allergen Cough MARIAN on CPAP MARIAN (obstructive sleep apnea) Social History Social History Alcohol intake: never Patient Tobacco Use Status: Never used Tobacco Advance Directives: No Advance Directives Information Provided: No Physical Exam ED Vital Signs: Vital Signs - 24 hr 10/22/23 14:34 Temperature 98.3 F Pulse Rate 99 Respiratory Rate 15 Blood Pressure 156/92 H Pulse Oximetry 98 Oxygen Delivery Method Room Air BMI result Body Mass Index 37.2 Course Course Course Narrative: This is a rapid medical exam. Deferred additional HPI, ROS, PE to primary provider. 48 yo male with history of HTN, anxiety, depression here with right knee pain since yesterday. No known injury or trauma to knee Took 2g naproxen today accidentally which concerned him. Given reassurance in regards to this, wants to also be seen for his knee pain Will check x-rays -Jun samano APRN Discharge Plan Discharge Clinical Impression: Knee pain Patient Disposition: Left W/O Completing Treatment Prescriptions: No Action loratadine 10 mg tablet 10 mg PO DAILY Qty: 30 5RF Fluzone Quad [id number] (PF) 60 mcg (15 mcg x 4)/0.5 mL syringe IM omeprazole 20 mg capsule,delayed release(DR/EC) 20 mg PO DAILY citalopram 10 mg tablet 10 mg PO DAILY cholecalciferol (vitamin D3) 25 mcg (1,000 unit) capsule 25 mcg PO DAILY bupropion HCl 150 mg tablet extended release 24 hr 150 mg PO BEDTIME clonazepam 2 mg tablet 2 mg PO DAILY PRN fluticasone propionate 50 mcg/actuation spray,suspension 2 spray intranasal DAILY 30 Days Qty: 16 5RF Discharge Date/Time: 10/22/23 16:03
[2023-10-22 14:34] VITALS: BP 156/92; PULSE 99; RESP 15; TEMP 36.8; O2SAT 98; BMI 37.2
== END 2023-10-22 16:03 | disposition left against medical advice (07) ==
PROVIDERS: Emergency Provider Emergency Medicine; PCP Internal Medicine
DX: M25.561 Pain in right knee (principal)
CPT/HCPCS: 73562; 99281; 99283

== ENCOUNTER 2023-11-23 09:24 | Outpatient (REF) | payer OTHER, SELFPAY ==
[2023-11-23 11:27] LABS: Estimated Average Glucose 108 mg/dL; Hemoglobin A1c % 5.4 % (<6.0)
[2023-11-23 11:32] LABS: Alanine Aminotransferase 39 U/L (0-40); Alkaline Phosphatase 93 U/L (39-117); Anion Gap 11 (12-20); Aspartate Amino Transferase 28 U/L (5-37); Bilirubin Total 1.3 mg/dL (0.0-1.0); Blood Urea Nitrogen 11 mg/dL (9-16); Calcium 9.5 mg/dL (8.4-10.2); Carbon Dioxide 26 mmol/L (22-29); Chloride 105 mmol/L (96-108); Cholesterol 132 mg/dL (<200); Estimated Glomerular Filt Rate > 60; Glucose Random 115 mg/dL (60-115); HDL Cholesterol 21 mg/dL (>40); Potassium 4.1 mmol/L (3.3-5.1); Sodium 138 mmol/L (135-145); Total Protein 7.2 g/dL (6.5-8.0); Triglycerides 402 mg/dL (<150)
[2023-11-23 11:49] LABS: TSH reflex Free T4 3.03 uIU/mL (0.32-4.0); Vitamin D 25-OH Total 38.6 ng/mL (>30)
[2023-11-23 12:27] LABS: Reflex LDLD? Yes
[2023-11-25 12:49] LABS: LDL Cholesterol Direct 62 mg/dL (<100)
== END 2023-11-23 09:25 | disposition home or self-care (01) ==
LOC: HO.HHCL 09:24
PROVIDERS: Visit Provider Internal Medicine
DX: E78.5 Hyperlipidemia, unspecified (principal); E66.01 Morbid (severe) obesity due to excess calories; Z68.36 Body mass index [BMI] 36.0-36.9, adult; Z13.1 Encounter for screening for diabetes mellitus
CPT/HCPCS: 36415; 80053; 80061; 82306; 83036; 83721; 84443

== ENCOUNTER 2024-05-13 12:51 | Outpatient (AMB) | payer OTHER, SELFPAY ==
[2024-05-13 13:13] VITALS: BP 136/86; PULSE 134; O2SAT 94; BMI 38.0
--- NOTE | 2024-05-13 13:13 | AM.OFFWIN_ITS ---
Intake Vital Signs 05/13/24 13:13 Height 5 ft 8 in Weight 250 lb BMI 38.0 BP 136/86 Blood Pressure Location Lt brachial Position Sitting Pulse 134 H Pulse Source Pulse Oximeter Pulse Oximetry (%) 94 Oxygen Delivery Method Room Air Intake Visit Reasons: EP cough, SOB Intake Note: Pt is here today for a walk in visit. Pt c/o dry cough, sob for couple of days. Patient Tobacco Use Status: Never used Tobacco Allergies No Known Drug Intolerances Allergy (Mild, Verified 05/13/24 13:16) UNKNOWN HPI HPI Comments History of Present Illness Details History of Present Illness - The patient is a 48-year-old male pres enting with dry cough and shortness of breath. - Symptoms commenced Monday with no fe zaid, nasal congestion, or headache. - No recent travel history, personal his tory of DVT or PE, personal or family history of clotting disorders, cancer, surgeries, or smoking history are noted. Pt denies leg swelling. - Heart rate typically runs high, curren tly at 135 beats per minute, while saturation is 94%. - No hemoptysis is present; cough is dry , non-productive. Physical Exam General: Cooperative, healthy appearing, comfortable, no acute distress and well developed Orientation: Patient oriented x3 Limitations: No limitations Head: Normal to inspection Ears: Hearing grossly normal bilaterally Nose: Normal external nose present Face and sinus: Normal facial exam Eyes: Appearance normal, both eyes and all related structures Neck: Normal visual inspection and Yes full ROM Respiratory: Normal respiratory effort and able to speak in complete sentences. Clear to auscultation bilaterally Cardiovascular: Tachycardic rate, Regular rhythm. Normal S1 and S2 Skin: No rashes or lesions noted Neuro: Patient oriented x3. Extremities: Normal to inspection. No leg swelling noted, negative Homans bilaterally [facility] Medical History Obesity (BMI 30-39.9) Essential hypertension Allergic rhinitis due to allergen Cough MARIAN on CPAP MARIAN (obstructive sleep apnea) Social History Alcohol intake: never Patient Tobacco Use Status: Never used Tobacco Review of Systems Const All systems reviewed & are unremarkable except as noted in HPI and below Physical Exam Vital Signs: Last Vital Signs Pulse 119 H 05/13/24 13:13 BP 136/86 05/13/24 13:13 Pulse Ox 98 05/13/24 13:13 Oxygen Delivery Method Room Air 05/13/24 13:13 BMI result Body Mass Index 38.0 Assessment & Plan Assessment & Plan (1) Shortness of breath: Code(s): R06.02 - Shortness of breath Plan: The patient presents with dry cough, shortness of breath, tachycardia, and hypoxemia, raising the suspicion of a potential pulmonary embolism. Though the Welles score of 1.5 suggests low risk, it does not eliminate the possibility. To ensure thorough evaluation, the patient is advised to proceed to the emergency department for a computed tomography pulmonary angiogram to rule out pulmonary embolism. Coordination with the ED will ensure prompt assessment upon the patient's arrival. Called [facility] with expect. Patient was informed and verbally consented to the use of an ambient scribe for clinic note documentation during this visit. Coding Level of Care Code New Pt Level 5 (90604) Diagnoses Shortness of breath R06.02
== END 2024-05-13 14:32 | disposition home or self-care (01) ==
PROVIDERS: PCP Internal Medicine; Visit Provider Physician Assistant
DX: R06.02 Shortness of breath (principal)

== ENCOUNTER → 2024-05-13 12:51 | Outpatient (BNVA) | payer OTHER, SELFPAY | PROVIDERS: PCP Internal Medicine; Visit Provider Physician Assistant ==

== ENCOUNTER 2024-05-13 14:12 | Observation (INO) | payer OTHER, SELFPAY ==
--- NOTE | ~2024-05-13 | XR_ITS ---
EXAMINATION: XR CHEST 2 VIEWS HISTORY: SOB, cough COMPARISON: Comparison is made with the prior examination dated 02/17/2020. FINDINGS: PA and lateral views of the chest are submitted. There is linear scarring in the lingula. The right lung is clear. There is no pleural effusion, pneumothorax, or pulmonary vascular congestion. The heart is normal in size. The bones are intact. XR/XR chest 2V IMPRESSION: Lingular scarring. Electronically signed by: Nahun Oseguera MD 05/13/2024 03:29 PM [facility]
--- NOTE | ~2024-05-13 | CT_ITS ---
CLINICAL HISTORY: cough, shorntess of breath CT angiogram chest/pulmonary arteries with contrast Multiplanar reconstructions and MIPS Comparison: None Findings: No filling defects are noted to suggest pulmonary embolus. Main pulmonary artery normal in caliber. Thoracic aorta normal caliber without dissection. Heart size normal. Great vessel origins patent. No coronary calcifications. No significant focal parenchymal abnormalities. No significant mediastinal or hilar adenopathy. No free pleural fluid. No acute bony abnormality noted. Fatty infiltration of the liver. Impression: No evidence of pulmonary embolus This document has been electronically signed by: Guy Davis MD on 05/13/2024 20:20:28
[2024-05-13 14:41] VITALS: BP 131/85; PULSE 133; RESP 18; TEMP 37.4; O2SAT 98; BMI 38.0
--- NOTE | 2024-05-13 14:41 | ED_ITS ---
HPI - URI/Sore Throat General Chief Complaint: Dyspnea Stated Complaint: SOB sent by harrison walk in Time Seen by Provider: 05/13/24 19:01 Source: patient Limitations: no limitations History of Present Illness ED Provider: Sylvia Jasso NP HPI Narrative: Patient is a 48-year-old male with past medical history of hypertension, obesity, MARIAN who presents emergency department for evaluation of shortness of breath with a nonproductive cough for the past 3 days. He presented to urgent care today for evaluation where he is noted to be tachycardic in the 130s referred to the emergency department for further evaluation. He states it is typical for his heart rate to be ?high? but states it typically is between 100- 105. He does admit that his son was ill last week with a cough for a few days. He is dyspneic on exertion. He denies orthopnea. Denies trauma, fevers, chills, sore throat, difficulty swallowing, neck pain, chest pain, palpitations, nausea, vomiting, abdominal pain, numbness or tingling of the extremities, recent lower extremity pain or swelling. Denies alcohol use, recreational drugs, or smoking tobacco. Denies history of VTE/malignancy, recent surgery or prolonged immobilization. Related Data Home Medications ?Medication ?Instructions ?Recorded ?Confirmed flu vacc [id number] 6mos up(PF) 60 ml IM 01/18/20 07/26/23 mcg(15 mcgx4)/0.5 mL IM syringe bupropion HCl 150 mg 24 hr tablet, 150 mg PO BEDTIME 09/02/20 07/26/23 extended release cholecalciferol (vitamin D3) 25 25 mcg PO DAILY 09/02/20 07/26/23 mcg (1,000 unit) capsule citalopram 10 mg tablet 10 mg PO DAILY 09/02/20 07/26/23 omeprazole 20 mg capsule,delayed 20 mg PO DAILY 09/02/20 07/26/23 release clonazepam 2 mg tablet 2 mg PO DAILY PRN 04/26/21 07/26/23 Previous Rx's ?Medication ?Instructions ?Recorded fluticasone propionate 50 2 spray intranasal DAILY 30 days 01/25/23 mcg/actuation nasal #16 grams spray,suspension loratadine 10 mg tablet 10 mg PO DAILY for allergic 08/08/23 rhinitis #30 tabs Allergies Allergy/AdvReac Type Severity Reaction Status Date / Time No Known Drug Intolerances Allergy Mild UNKNOWN Verified 05/13/24 14:43 Review of Systems 2 Review of Systems: Yes all other systems are reviewed and are negative [facility] Past Medical History Attestation statement: The following information was validated with the patient. Source: old records reviewed Medical History Obesity (BMI 30-39.9) Essential hypertension Allergic rhinitis due to allergen Cough MARIAN on CPAP MARIAN (obstructive sleep apnea) Social History Social History Alcohol intake: never Patient Tobacco Use Status: Never used Tobacco Smoked in Last 30 Days: No Use of substances other than those prescribed or required for medical reasons: No Advance Directives: No Advance Directives Information Provided: No Do you have a plan to hurt others: No Plan Physical Exam 2 Vital Signs: Vital Signs: Last Vital Signs Temp 99.0 F 05/14/24 00:42 Pulse 112 H 05/14/24 00:42 Resp 16 05/14/24 00:42 BP 128/75 05/14/24 00:42 Pulse Ox 95 05/14/24 00:42 O2 Del Method Room Air 05/14/24 00:42 BMI result Body Mass Index 38.0 Appearance: Alert.?Oriented to person, place and time. No acute distress.?Normal affect. Eyes: Pupils equal, round and reactive to light.? ENT: Pharynx normal.?? Neck: Normal inspection.? Neck supple.?? CVS: Heart sounds normal. Tachycardia? Pulses normal.?? Respiratory: No respiratory distress.? Lung sounds clear to auscultation bilaterally?? Abdomen: Soft and non-tender. Normoactive bowel sounds. Skin: Skin warm and dry.? Normal skin color.? Extremities: No lower extremity edema.? No calf ttp? Neuro: Moves all extremities spontaneously. Sensation intact bilaterally. No focal neuro deficits. Ambulates with normal steady gait. Course Course Course Narrative: This is an RME: Additional HPI, ROS, PE not included below will be deferred to primary provider. RME assessment and note performed by: Nyla Guthrie PA-C This is a 84-[id number]-oic-male, with a hx of HTN, who presents to the ER with complaints of SOB and cough x 3 days. Patient was seen at an urgent care and was found to have a pulse of 130. Pulse 135 in triage. Lung CTAB. No recent travel, surgery, hospitalizations. No history of blood clots no history of cancer. Plan: labs, EKG, cxr, further ER eval needed Reevaluation(s) Reevaluation #1: Ambulatory O2 trial without hypoxia, remains persistently tachycardic in the 130s, and ambulation as high as 138 increasing shortness of breath on exertion. Reviewed this case my attending Dr. Webb, speak with hospitalist regarding admission for persistent tachycardia and shortness of breath Medications Administered Generic Name Dose Route Start Last Admin Trade Name Freq PRN Reason Stop Dose Admin Acetaminophen 650 mg 05/13/24 23:39 05/14/24 00:53 Acetaminophen 325 Mg Tablet PO 650 mg Q6H PRN Administration Pain, Mild 1-3,fever,headache Benzonatate 100 mg 05/14/24 00:10 05/14/24 00:53 Benzonatate 100 Mg Capsule PO 100 mg TID PRN Administration Cough Enoxaparin Sodium 40 mg 05/13/24 23:45 05/14/24 00:53 Enoxaparin Sodium 40 Mg/0.4 Ml Syringe SUBCUT 40 mg Q24H RADHA Administration Sodium Chloride 3 ml 05/14/24 00:00 05/14/24 00:54 0.9 % Sodium Chloride Flush 3 Ml Syringe IVFLUSH 3 ml QSHIFT RADHA Administration Discontinued Medications Generic Name Dose Route Start Last Admin Trade Name Freq PRN Reason Stop Dose Admin Sodium Chloride 1,000 mls @ 999 mls/hr 05/13/24 19:15 05/13/24 21:20 Ns IV 05/13/24 20:15 Infused .Q1H1M RADHA Infusion Iohexol 100 ml 05/13/24 19:47 05/13/24 19:47 Iohexol 350 Mg/Ml 100 Ml Infus..Btl IV 05/13/24 19:48 65 ml ONCE ONE Administration Propranolol HCl 10 mg 05/13/24 23:27 05/13/24 23:54 Propranolol Hcl 10 Mg Tablet PO 05/13/24 23:28 10 mg ONCE ONE Administration Protocol Medical Decision Making Medical Decision Making MDM Narrative: Patient is a 48-year-old male with past medical history of hypertension, obesity, MARIAN who presents emergency department for evaluation of shortness of breath with a nonproductive cough for the past 3 days. Serum labs and chest x- ray were obtained prior to my assumption of care CBC is without leukocytosis anemia or thrombocytopenia. No electrolyte derangement. No DRISS. No lactic acidosis. LFTs overall unremarkable. High sensitive troponin below detectable limits. Viral serologies are negative. CXR revealing lingular scarring but no evidence of consolidation infiltrate to suggest pneumonia. Wells score revealing low risk for pulmonary embolism D-dimer is negative. However he is notably tachycardic even while at rest without overt dyspnea, lung sounds are clear to the apices bilaterally, obtaining CT angio of the chest for further evaluation in addition will receive 1 L normal saline IV fluid. No rash or lesions, urticaria, or evidence of angioedema to suggest allergic reaction/anaphylaxis. No swallowing difficulties to suggest aspiration. No associated chest pain to suggest ACS, CHF, pericardial effusion. No recent trauma or injury, no tracheal deviation, unlikely tension pneumothorax. No history of diabetes, unlikely DKA. No acute bleeding or known anemia, no associated dizziness fatigue or chest pain to suggest acute anemia. No history of asthma or COPD to suggest acute exacerbation. Differential Diagnosis Differential Diagnoses: The differential diagnosis associated with the presentation includes (See narrative above) Admission/Observation Consideration of admission/observation: Escalation of care including admission/observation considered (See narrative above in course narrative for further detail) Lab Data MDM Lab Attestation statement: I reviewed the patient's lab results. (See narrative above) 05/13/24 14:56 05/13/24 14:56 Labs: Lab Results 05/13/24 05/13/24 05/13/24 Range/Units 14:56 19:14 21:59 WBC 8.8 (4.8-10.8) X10*3/uL RBC 5.37 (4.60-5.80) X10*6/uL Hgb 15.5 (14.0-18.0) g/dl Hct 46.1 (42.0-52.0) % MCV 85.8 (80.0-98.0) fL MCH 28.9 (27.0-33.0) pg MCHC 33.6 (31.0-36.0) g/dl RDW 13.3 (11.0-16.0) % Plt Count 237 (160-400) X10*3/uL MPV 10.0 (9.4-12.4) fL Immature Gran % (Auto) 0.8 H (0.0-0.4) % Neut % (Auto) 79.0 H (45-73) % Lymph % (Auto) 9.7 L (20-40) % Centre % (Auto) 7.8 (2-11) % Eos % (Auto) 2.2 (0-4) % Baso % (Auto) 0.5 (0-2) % Lymph # (Auto) 0.9 L (1.2-4.9) X10*3/uL [place] # (Auto) 0.7 (0.1-1.2) X10*3/uL Eos # (Auto) 0.2 (0.0-0.4) X10*3/uL Baso # (Auto) 0.0 (0.0-0.2) X10*3/uL Abs Immat Gran (auto) 0.07 H (0.00-0.03) X10*3/uL Absolute Neuts (auto) 6.9 (2.0-8.3) x10*3/uL Absolute Nucleated RBC 0.000 (0.0-0.012) X10*3/uL Nucleated RBC % (auto) 0.0 (0.0-0.2) /100WBC PT 11.8 (10.9-12.4) SEC INR 1.0 (0.9-1.1) D-Dimer High Sensitivty < 150 NG/ML Sodium 137 (135-145) mmol/L Potassium 4.1 (3.3-5.1) mmol/L Chloride 104 (96-108) mmol/L Carbon Dioxide 24 (22-29) mmol/L Anion Gap 13 (12-20) BUN 12 (9-16) mg/dL Creatinine 1.00 (0.5-1.4) mg/dL Estim Creat Clear Calc 112.7 Estimated GFR > 60 Random Glucose 91 (60-115) mg/dL Lactic Acid 1.3 (0.5-2.0) mmol/L Calcium 9.6 (8.4-10.2) mg/dL Magnesium 1.8 (1.6-2.6) mg/dL Total Bilirubin 0.7 (0.0-1.0) mg/dL Direct Bilirubin 0.2 (0.0-0.5) mg/dL AST 36 (5-37) U/L ALT 54 H (0-40) U/L Alkaline Phosphatase 100 (39-117) U/L Troponin I High Sens < 2.7 < 2.7 (<3.5-35.0) ng/L B-Natriuretic Peptide < 10 (<100) pg/mL Total Protein 8.3 H (6.5-8.0) g/dL Albumin 4.2 (3.5-5.0) g/dL TSH 1.95 (0.32-4.0) uIU/mL Influenza Type A (PCR) NEGATIVE (Negative) Influenza Type B (PCR) NEGATIVE (Negative) RSV RNA Qual (PCR) NEGATIVE (Negative) SARS-CoV-2 RNA (RT-PCR) NEGATIVE (Negative) Independent Interpretation I performed an independent interpretation of an: EKG and Plain X-Ray (No consolidation or infiltrate) Radiology Impression Discussion of test interpretation with radiology: I have reviewed the radiologist's reading. Radiologist Impression: XR/XR chest 2V IMPRESSION: Lingular scarring. CT angiogram chest/pulmonary arteries with contrast Multiplanar reconstructions and MIPS Comparison: None Findings: No filling defects are noted to suggest pulmonary embolus. Main pulmonary artery normal in caliber. Thoracic aorta normal caliber without dissection. Heart size normal. Great vessel origins patent. No coronary calcifications. No significant focal parenchymal abnormalities. No significant mediastinal or hilar adenopathy. No free pleural fluid. No acute bony abnormality noted. Fatty infiltration of the liver. Impression: No evidence of pulmonary embolus External Record Review External record reviewed: Outpatient record Chronic Conditions Patient?s care impacted by: Other (See narrative above) Discharge Plan Discharge Clinical Impression: Tachycardia, Shortness of breath Patient Disposition: Admitted As Inpatient
--- NOTE | 2024-05-13 14:43 | ECG_ITS ---
Test Reason : tachycardia Blood Pressure : */* mmHG Vent. Rate : 125 BPM Atrial Rate : * BPM P-R Int : * ms QRS Dur : 106 ms QT Int : 324 ms P-R-T Axes : * -75 41 degrees QTcB Int : 467 ms Sinus tachycardia Left anterior fascicular block Incomplete right bundle branch block T wave abnormality, consider inferior ischemia Abnormal ECG When compared with ECG of 17-Feb-2020 10:12, Vent. rate has increased by 52 bpm Left anterior fascicular block is now Present Referred By: Nyla Guthrie Electronically Signed By: ALANA FLORES MD
[2024-05-13 15:06] LABS: MANUAL DIFF FLAG NO
[2024-05-13 15:12] LABS: Basophils Percent Auto 0.5 % (0-2); Eosinophils Absolute Auto 0.2 X10*3/uL (0.0-0.4); Eosinophils Percent Auto 2.2 % (0-4); Hematocrit 46.1 % (42.0-52.0); Hemoglobin 15.5 g/dl (14.0-18.0); Imm Gran Abs Auto 0.07 X10*3/uL (0.00-0.03); Imm Gran Pct Auto 0.8 % (0.0-0.4); Lymphocytes Absolute Auto 0.9 X10*3/uL (1.2-4.9); Lymphocytes Percent Auto 9.7 % (20-40); Mean Corpuscular HGB Conc 33.6 g/dl (31.0-36.0); Mean Corpuscular Hemoglobin 28.9 pg (27.0-33.0); Mean Corpuscular Volume 85.8 fL (80.0-98.0); Monocytes Absolute Auto 0.7 X10*3/uL (0.1-1.2); Monocytes Percent Auto 7.8 % (2-11); Neutrophils Absolute Auto 6.9 x10*3/uL (2.0-8.3); Platelet Count 237 X10*3/uL (160-400); Red Blood Count 5.37 X10*6/uL (4.60-5.80); Red Cell Distribution Width 13.3 % (11.0-16.0); White Blood Count 8.8 X10*3/uL (4.8-10.8)
[2024-05-13 15:16] LABS: Prothrombin Time 11.8 SEC (10.9-12.4)
[2024-05-13 15:23] LABS: Lactic Acid 1.3 mmol/L (0.5-2.0)
[2024-05-13 15:35] LABS: Alanine Aminotransferase 54 U/L (0-40); Albumin Level 4.2 g/dL (3.5-5.0); Anion Gap 13 (12-20); Aspartate Amino Transferase 36 U/L (5-37); Bilirubin Direct 0.2 mg/dL (0.0-0.5); Bilirubin Total 0.7 mg/dL (0.0-1.0); Blood Urea Nitrogen 12 mg/dL (9-16); Calcium 9.6 mg/dL (8.4-10.2); Carbon Dioxide 24 mmol/L (22-29); Chloride 104 mmol/L (96-108); Creatinine Clr Calc Pharmacy 112.7; Estimated Glomerular Filt Rate > 60; Glucose Random 91 mg/dL (60-115); Magnesium 1.8 mg/dL (1.6-2.6); Potassium 4.1 mmol/L (3.3-5.1); Sodium 137 mmol/L (135-145); Total Protein 8.3 g/dL (6.5-8.0)
[2024-05-13 15:38] LABS: Troponin-I High Sensitivity < 2.7 ng/L (<3.5-35.0)
[2024-05-13 15:59] LABS: Influenza A PCR NEGATIVE (Negative); Influenza B PCR NEGATIVE (Negative); Resp Syncy Virus RNA Qual PCR NEGATIVE (Negative); SARS COV2 PCR INHOUSE NEGATIVE (Negative)
[2024-05-13 16:12] LABS: Alkaline Phosphatase 100 U/L (39-117)
[2024-05-13 19:03] VITALS: BP 126/82; PULSE 130; RESP 22; TEMP 37.1; O2SAT 98
[2024-05-13 19:07] LABS: D Dimer High Sensitivity < 150 NG/ML
--- NOTE | 2024-05-13 19:19 | PC.NURSE ---
Patient alert and oriented x4. He is able to make his needs known. HR 130's, sinus tachy on threat monitoring analyst. Patient denies chest pain/heart palpitations. Patient reports worsening SOB with non-productive cough x3 days. RR 18, SPO2 09% RA. 20 G IV line established in R AC, repeat trop and second set of BC drawn and sent to lab. Patient oriented to ED room, call justice within patient's reach.
[2024-05-13] MEDS: 0.9 % Sodium Chloride 1,000 ML 999 ML IV (19:24)
[2024-05-13 19:46] LABS: Troponin-I High Sensitivity < 2.7 ng/L (<3.5-35.0)
[2024-05-13] MEDS: iohexoL 350 MG/ML 100 ML INFUS..BTL IV (19:47)
--- NOTE | 2024-05-13 20:58 | ECG_ITS ---
Test Reason : TACHY Blood Pressure : */* mmHG Vent. Rate : 130 BPM Atrial Rate : 130 BPM P-R Int : 140 ms QRS Dur : 98 ms QT Int : 304 ms P-R-T Axes : 52 -29 17 degrees QTcB Int : 447 ms Poor data quality, interpretation may be adversely affected Sinus tachycardia Incomplete right bundle branch block Otherwise normal ECG When compared with ECG of 13-May-2024 14:47, No significant changes seen Referred By: Sylvia Jasso Electronically Signed By: ALANA FLORES MD
[2024-05-13 21:28] VITALS: BP 135/91; PULSE 130; RESP 17; TEMP 37.6; O2SAT 95
[2024-05-13 22:23] LABS: B Type Natriuretic Peptide < 10 pg/mL (<100)
--- NOTE | 2024-05-13 22:25 | PC.NURSE ---
this rn assumed care of pt from ed bed 5 @ 2100. pt placed on nuclear monitoring technician and spo2 monitor
[2024-05-13 22:27] VITALS: BP 148/90; PULSE 130; RESP 11; TEMP 37.6; O2SAT 96
--- NOTE | 2024-05-13 22:30 | PC.NURSE ---
this rn did ambulation trial with pt per Niwa patrick HR 138 while ambulating spo2 96% RA while ambulating pt reports no SOB while walking. annamarie patrick made aware pt repositioned back to bed no new orders at this time
[2024-05-13 22:37] LABS: TSH reflex Free T4 1.95 uIU/mL (0.32-4.0)
[2024-05-13 23:54] VITALS: BP 139/89; PULSE 130
[2024-05-13] MEDS: Propranolol HCL 10 MG TABLET PO (23:54)
[2024-05-14] VITALS (8 sets, daily range): BP systolic 108–129; BP diastolic 75–81; PULSE 83–112; RESP 16–28; TEMP -17.7–37.6; O2SAT 95–96
--- NOTE | 2024-05-14 00:11 | P.HPHOSP_ITS ---
History of Present Illness Date of Service: 05/14/24 Attending physician on admission: Carlos Lua Chief Complaint: cough Patient is a 48-year-old male with a past medical history significant for obesity, hypertension and MARIAN on CPAP presented to the ED due to shortness of and a nonproductive cough. He reports that he was exposed to his son recently who also has a viral illness, COVID, flu and RSV were all negative. He denies any fever, chills, nausea or vomiting. He does have headache secondary to his cough and denies any sore throat or visual changes. He also denies any chest pain. No history of any cardiac issues aside from hypertension. No smoking, alcohol or drug use. Review of Systems 2 Constitutional: Constitutional: Denies body ache(s), Denies chills, Denies fatigue, Denies fever(s) and Reports headache(s) Eyes: Eyes: Denies change in vision and Denies photophobia ENT: Reports headache(s), Denies nasal congestion, Denies nasal discharge and Denies sore throat Cardiovascular: Cardiovascular: Denies chest pain, Denies leg edema, Denies lightheadedness and Reports dyspnea Respiratory: Respiratory: Denies chest congestion, Reports cough, Reports dyspnea and Denies wheezing Gastrointestinal: Gastrointestinal: Denies constipation, Denies diarrhea, Denies nausea and Denies vomiting Genitourinary: Genitourinary: Denies dysuria, Denies urinary frequency and Denies urinary urgency Musculoskeletal: Musculoskeletal: Denies myalgias Integumentary/Breasts: Skin/Breast: Denies rash Neurologic: Denies confusion, Reports headache(s) and Denies memory loss Psychiatric: Psychiatric: Denies confusion and Denies memory loss Endocrine: Endocrine: Denies fatigue Hematologic/Lymphatic: Hematologic/Lymphatic: Denies easy bleeding and Denies easy bruising Allergic/Immunologic: Allergic/Immunologic: Denies wheezing [facility] Medical History Obesity (BMI 30-39.9) Essential hypertension Allergic rhinitis due to allergen Cough MARIAN on CPAP MARIAN (obstructive sleep apnea) Functional capacity: independent ambulation Social History Alcohol intake: never Patient Tobacco Use Status: Never used Tobacco Smoked in Last 30 Days: No Use of substances other than those prescribed or required for medical reasons: No Advance Directives: No Advance Directives Information Provided: No Do you have a plan to hurt others: No Plan Meds Allergies Allergy/AdvReac Type Severity Reaction Status Date / Time No Known Drug Intolerances Allergy Mild UNKNOWN Verified 05/13/24 14:43 Active Medications: Current Medications Acetaminophen (Acetaminophen 325 Mg Tablet) 650 mg PO Q6H PRN PRN Reason: Pain, Mild 1-3,fever,headache Benzonatate (Benzonatate 100 Mg Capsule) 100 mg PO TID PRN PRN Reason: Cough Calcium Carbonate (Calcium Carbonate 750 Mg Tab.Chew) 750 mg PO Q4H PRN PRN Reason: Heartburn Enoxaparin Sodium (Enoxaparin Sodium 40 Mg/0.4 Ml Syringe) 40 mg SUBCUT Q24H RADHA Magnesium Hydroxide (Milk Of Magnesia 30 Ml Oral.Susp) 30 ml PO DAILY PRN PRN Reason: Constipation Melatonin (Melatonin 3 Mg Tablet) 6 mg PO BEDTIME PRN PRN Reason: Insomnia Ondansetron HCl (Ondansetron Hcl 4 Mg/2 Ml Vial) 4 mg IVPUSH Q8H PRN PRN Reason: Nausea and Vomiting Sodium Chloride (0.9 % Sodium Chloride Flush 3 Ml Syringe) 3 ml IVFLUSH QSHIFT [facility] Home Medications ?Medication ?Instructions ?Recorded ?Confirmed ?Last Taken ?Type flu vacc [id number] 6mos up(PF) 60 ml IM 01/18/20 07/26/23 Unknown History mcg(15 mcgx4)/0.5 mL IM syringe bupropion HCl 150 mg 24 hr tablet, 150 mg PO BEDTIME 09/02/20 07/26/23 Unknown History extended release cholecalciferol (vitamin D3) 25 25 mcg PO DAILY 09/02/20 07/26/23 Unknown History mcg (1,000 unit) capsule citalopram 10 mg tablet 10 mg PO DAILY 09/02/20 07/26/23 Unknown History omeprazole 20 mg capsule,delayed 20 mg PO DAILY 09/02/20 07/26/23 Unknown History release clonazepam 2 mg tablet 2 mg PO DAILY PRN 04/26/21 07/26/23 Unknown History Physical Exam 2 Vital Signs and Narrative: Vital Signs: Last Vital Signs Temp 99.7 F 05/13/24 22:27 Pulse 130 H 05/13/24 23:54 Resp 11 L 05/13/24 22:27 BP 139/89 05/13/24 23:54 Pulse Ox 96 05/13/24 22:27 O2 Del Method Room Air 05/13/24 22:27 BMI result Body Mass Index 38.0 General: AOx3, no acute distress Resp: CTA bilaterally, no rhonchi or wheezing CVS: tachy, normal rhythm, no murmur GI: +BS, NT, no distention Skin: Warm, dry Neuro: Cranial nerves II-XII grossly intact bilaterally. Motor grossly intact bilaterally Extremities: No LE edema Psych: Appropriate affect Const: General: No confusion Orientation/consciousness: No confusion Eyes: Direct Ophthalmoscopy: No photophobia Neuro: General: No confusion Results Labs 05/13/24 14:56 05/13/24 14:56 Labs: Laboratory Results - last 24 hr 05/13/24 05/13/24 05/13/24 14:56 19:14 21:59 MCV 85.8 MCH 28.9 MCHC 33.6 RDW 13.3 Plt Count 237 MPV 10.0 Immature Gran % (Auto) 0.8 H Neut % (Auto) 79.0 H Lymph % (Auto) 9.7 L [place] % (Auto) 7.8 Eos % (Auto) 2.2 Baso % (Auto) 0.5 Lymph # (Auto) 0.9 L [place] # (Auto) 0.7 Eos # (Auto) 0.2 Baso # (Auto) 0.0 Abs Immat Gran (auto) 0.07 H Absolute Neuts (auto) 6.9 Absolute Nucleated RBC 0.000 Nucleated RBC % (auto) 0.0 PT 11.8 INR 1.0 D-Dimer High Sensitivty < 150 Anion Gap 13 Estim Creat Clear Calc 112.7 Estimated GFR > 60 Random Glucose 91 Lactic Acid 1.3 Calcium 9.6 Magnesium 1.8 Total Bilirubin 0.7 Direct Bilirubin 0.2 AST 36 ALT 54 H Alkaline Phosphatase 100 Troponin I High Sens < 2.7 < 2.7 B-Natriuretic Peptide < 10 Total Protein 8.3 H Albumin 4.2 TSH 1.95 Influenza Type A (PCR) NEGATIVE Influenza Type B (PCR) NEGATIVE RSV RNA Qual (PCR) NEGATIVE SARS-CoV-2 RNA (RT-PCR) NEGATIVE Imaging Radiologist's Impressions: Impressions Chest X-Ray 05/13/24 14:43 IMPRESSION: Lingular scarring. Electronically signed by: Nahun Oseguera MD 05/13/2024 03:[address] [facility] Assessment and Plan (1) Cough: Status: Acute (2) Tachycardia: Status: Acute (3) Obesity (BMI 30-39.9): Status: Acute Plan Patient is a 48-year-old male with a past medical history significant for obesity, hypertension and MARIAN on CPAP presented to the ED due to shortness of and a nonproductive cough. Cough, likely viral - WBC normal, lactic acid normal, blood cultures x2 pending, no infectious etiology found, no sepsis - chest x-ray negative - CTA negative for PE - troponin negative x2 - EKG with sinus tachycardia - COVID/flu/RSV negative - Tessalon for cough as needed - monitor CBC and BMP Tachycardia - no infectious etiology, no sepsis - per cardiology IV fluids, propranolol and echo tomorrow - echo ordered - given propranolol 10 mg in ED and started on fluids - cardiology consult MARIAN - CPAP at bedtime HTN - continue home meds Obesity - BMI 38 - weight loss encouraged DNI, discussed in depth with the patient VTE prophylaxis: Lovenox Patient with likely viral URI complicated by persistent tachycardia requiring admission for observation and further cardiac workup. Quality Stroke Does the patient have a stroke diagnosis?: No VTE Prior VTE?: No VTE Risk Level:: Medical - moderate - high VTE Device Contraindication: Treatment Not Indicated VTE Drug Contraindication: N/A - Med Ordered
[2024-05-14] MEDS: Acetaminophen 325 MG TABLET 650 MG PO (00:53)
[2024-05-14] MEDS: Benzonatate 100 MG CAPSULE PO ×2 (00:53→09:24)
[2024-05-14] MEDS: Enoxaparin Sodium 40 MG/0.4 ML SYRINGE SUBCUT (00:53)
[2024-05-14] MEDS: 0.9 % Sodium Chloride Flush 3 ML SYRINGE IVFLUSH ×2 (00:54→08:34)
--- NOTE | 2024-05-14 03:55 | MHC.EDTECH ---
Rounds and vitals completed,pt is resting quietly,call justice in reach
[2024-05-14 05:23] LABS: Hematocrit 42.7 % (42.0-52.0); Hemoglobin 14.3 g/dl (14.0-18.0); Mean Corpuscular HGB Conc 33.5 g/dl (31.0-36.0); Mean Corpuscular Hemoglobin 28.5 pg (27.0-33.0); Mean Corpuscular Volume 85.2 fL (80.0-98.0); Mean Platelet Volume 10.1 fL (9.4-12.4); Platelet Count 240 X10*3/uL (160-400); Red Blood Count 5.01 X10*6/uL (4.60-5.80); Red Cell Distribution Width 13.6 % (11.0-16.0); White Blood Count 8.6 X10*3/uL (4.8-10.8)
[2024-05-14 05:35] LABS: Anion Gap 12 (12-20); Blood Urea Nitrogen 11 mg/dL (9-16); Calcium 8.9 mg/dL (8.4-10.2); Carbon Dioxide 21 mmol/L (22-29); Chloride 106 mmol/L (96-108); Creatinine Clr Calc Pharmacy 123.8; Estimated Glomerular Filt Rate > 60; Glucose Random 129 mg/dL (60-115); Potassium 3.5 mmol/L (3.3-5.1); Sodium 135 mmol/L (135-145)
[2024-05-14] MEDS: Propranolol HCL 10 MG TABLET PO (08:35)
--- NOTE | 2024-05-14 08:41 | PC.NURSE ---
Pt is alert/oriented. Breathing is unlabored/even. Req med for cough however no cough heard, will give within alloted time frame. LS clear throughout. NS-ST on tele to low 100s, medicated as charted. Denies pain or discomfort. Amb to bathroom as needed.
--- NOTE | 2024-05-14 09:58 | P.DS_ITS ---
DS: Providers Provider Date of Service: 05/14/24 Date of admission: 05/14/24 00:46 Date of discharge: 05/14/24 Primary care physician: Analisa Cline MD Consults: 05/13/24 23:39 Consult to Cardiology Routine Consulting Provider[place] [facility] Reason for consultation: sinus tach Has provider been notified: Yes DS: Diagnosis Discharge Diagnosis (1) Cough: Status: Acute (2) Tachycardia: Status: Acute (3) Obesity (BMI 30-39.9): Status: Acute DS: Summary Hospital Course Hospital Course: HP as per admitting provider Patient is a 48-year-old male with a past medical history significant for obesity, hypertension and MARIAN on CPAP presented to the ED due to shortness of and a nonproductive cough. He reports that he was exposed to his son recently who also has a viral illness, COVID, flu and RSV were all negative. He denies any fever, chills, nausea or vomiting. He does have headache secondary to his cough and denies any sore throat or visual changes. He also denies any chest pain. No history of any cardiac issues aside from hypertension. No smoking, alcohol or drug use . Cough, dry, WBC normal, lactic acid normal, no infectious etiology found, no sepsis. chest x-ray negative. CTA negative for PE. troponin negative x2, EKG with sinus tachycardia, COVID/flu/RSV negative. Tessalon for cough as needed Tachycardia. no infectious etiology, no sepsis. s/p IV fluids, propranolol 120mg daily. Seen by cardiology, follow up with cardiology as needed for continued tachycardia MARIAN. CPAP at bedtime HTN. continue home meds Obesity. BMI 38. weight loss encouraged Time Attestation Discharge Coordination Time (in mins): 40 Quality: Safe Use of Opioids Does Pt have an Active Cancer Diagnosis on the Problem List?: No Quality: Stroke Does the patient have a stroke diagnosis?: No Physical Exam Vital Signs: Vital Signs: Last Vital Signs Temp 99.5 F 05/14/24 06:11 Pulse 95 05/14/24 08:36 Resp 28 H 05/14/24 08:36 BP 125/80 05/14/24 08:36 Pulse Ox 96 05/14/24 08:36 O2 Del Method Room Air 05/14/24 08:36 BMI result Body Mass Index 38.0 Appearing in no acute distress head is normocephalic atraumatic eyes pupils are PERRLA sclera is anicteric mouth throat mucous membranes are intact and moist neck is supple no lymphadenopathy, no JVD noted lung sounds are clear to auscultation heart regular rate rhythm, clear S1, S2 positive bowel sounds, abdomen is soft, nontender neuro patient is alert x3, no focal deficits DS: Data Data Completed and Pending Labs on day of discharge: Laboratory Results - last 24 hr 05/13/24 05/13/24 05/13/24 14:56 19:14 21:59 WBC 8.8 RBC 5.37 Hgb 15.5 Hct 46.1 MCV 85.8 MCH 28.9 MCHC 33.6 RDW 13.3 Plt Count 237 MPV 10.0 Immature Gran % (Auto) 0.8 H Neut % (Auto) 79.0 H Lymph % (Auto) 9.7 L Sanders % (Auto) 7.8 Eos % (Auto) 2.2 Baso % (Auto) 0.5 Lymph # (Auto) 0.9 L Sanders # (Auto) 0.7 Eos # (Auto) 0.2 Baso # (Auto) 0.0 Abs Immat Gran (auto) 0.07 H Absolute Neuts (auto) 6.9 Absolute Nucleated RBC 0.000 Nucleated RBC % (auto) 0.0 PT 11.8 INR 1.0 D-Dimer High Sensitivty < 150 Sodium 137 Potassium 4.1 Chloride 104 Carbon Dioxide 24 Anion Gap 13 BUN 12 Creatinine 1.00 Estim Creat Clear Calc 112.7 Estimated GFR > 60 Random Glucose 91 Lactic Acid 1.3 Calcium 9.6 Magnesium 1.8 Total Bilirubin 0.7 Direct Bilirubin 0.2 AST 36 ALT 54 H Alkaline Phosphatase 100 Troponin I High Sens < 2.7 < 2.7 B-Natriuretic Peptide < 10 Total Protein 8.3 H Albumin 4.2 TSH 1.95 Influenza Type A (PCR) NEGATIVE Influenza Type B (PCR) NEGATIVE RSV RNA Qual (PCR) NEGATIVE SARS-CoV-2 RNA (RT-PCR) NEGATIVE 05/14/24 05:12 WBC 8.6 RBC 5.01 Hgb 14.3 Hct 42.7 MCV 85.2 MCH 28.5 MCHC 33.5 RDW 13.6 Plt Count 240 MPV 10.1 Immature Gran % (Auto) Neut % (Auto) Lymph % (Auto) Sanders % (Auto) Eos % (Auto) Baso % (Auto) Lymph # (Auto) Sanders # (Auto) Eos # (Auto) Baso # (Auto) Abs Immat Gran (auto) Absolute Neuts (auto) Absolute Nucleated RBC 0.000 Nucleated RBC % (auto) 0.0 PT INR D-Dimer High Sensitivty Sodium 135 Potassium 3.5 Chloride 106 Carbon Dioxide 21 L Anion Gap 12 BUN 11 Creatinine 0.91 Estim Creat Clear Calc 123.8 Estimated GFR > 60 Random Glucose 129 H Lactic Acid Calcium 8.9 D Magnesium Total Bilirubin Direct Bilirubin AST ALT Alkaline Phosphatase Troponin I High Sens B-Natriuretic Peptide Total Protein Albumin TSH Influenza Type A (PCR) Influenza Type B (PCR) RSV RNA Qual (PCR) SARS-CoV-2 RNA (RT-PCR) Discharge Plan Discharge Anticipated Discharge Date/Time: 05/14/24 09:48 Patient Disposition: Home, Self-Care Discharge Diagnosis: Tachycardia Dry cough Referrals: Analisa Hansen MD [Primary Care Provider] - 1 Week Marcello Beach MD [Physician] - None Discharge Medications: New benzonatate 100 mg Capsule 100 mg PO TID PRN (Reason: Cough) Qty: 12 0RF propranolol [Inderal LA] 120 mg capsule,extended release 24hr 120 mg PO DAILY Qty: 30 0RF Continued loratadine 10 mg tablet 10 mg PO DAILY Qty: 30 5RF pravastatin 40 mg tablet 40 mg PO DAILY flu vacc [id number] 6mos up(PF) 60 mcg (15 mcg x 4)/0.5 mL syringe IM omeprazole 20 mg capsule,delayed release(DR/EC) 20 mg PO DAILY citalopram 10 mg tablet 10 mg PO DAILY cholecalciferol (vitamin D3) 25 mcg (1,000 unit) capsule 25 mcg PO DAILY bupropion HCl 150 mg tablet extended release 24 hr 150 mg PO BEDTIME clonazepam 2 mg tablet 2 mg PO DAILY PRN fluticasone propionate 50 mcg/actuation spray,suspension 2 spray intranasal DAILY 30 Days Qty: 16 5RF Discontinued lisinopril 5 mg tablet 5 mg PO DAILY Discharge Orders: Discharge Order (Routine); Ordered 05/14/24 Ordered By: Bel Kenny Diet: Advance to usual diet Activity on Discharge: As tolerated Stand Alone Forms: Patient Portal Discharge page Print Language: Maori Care Plan Goals: Follow up with Cardiology as needed Health Concerns: Tachycardia Dry cough Plan of Treatment: Follow-up with primary care provider as needed Take all medications as prescribed Assessment: See discharge summary
--- NOTE | 2024-05-14 10:09 | PHA.MEDREC ---
Addendum entered by Angela Castillo RPh 05/14/24 10:17: reviewed by [facility]. Original Note: Pharmacy Consult ? Medication Reconciliation Pharmacy has completed the medication reconciliation. Spoke with patient and he confirmed his medications. He confirmed he is taking the Bupropion HCL 75mg tab once at bedtime now instead of the 150mg tab. He confirmed he took all his medications yesterday morning.
--- NOTE | 2024-05-14 10:45 | MHC.CM.PN ---
CM attempted to meet with Patient at bedside in ED but was informed by ED staff that Patient has already left the hospital.
--- NOTE | 2024-05-14 10:53 | PM.CNCAR ---
History of Present Illness History of Present Illness Date of Service: 05/14/24 Requesting physician: Bel Kenny Consult reason: other (Tachycardia) Chief complaint: Dyspnea Narrative: I was consulted to see Boy a pleasant 48-year-old male with prior history of obesity, hypertension, obstructive sleep apnea came to the hospital because he was having trouble coughing. He said when he would be coughing incessantly he would get short of breath. He was not able to breathe. He had some episodes of dizziness but no actual syncopal episode. These only started since Monday the cough. Although workup in the hospital was negative. However he was noted to be tachycardia with heart rate up to 150 beats per minute, sinus tachycardia. He was then loaded with fluid with suspicion for sepsis which was negative. He had a workup for PE which was negative, TSH was negative. He was again given fluids and then was given Inderal overnight. Blood pressure and heart rate remained stable. He said he has hypertension for few years about 5 years and he has been on lisinopril therapy and blood pressures been generally better controlled. He denies history of asthma however seems like he has allergies in his trip treated for that. He also has history of anxiety although does not appear to be very anxious. Denies any drug use, alcohol use, caffeine use. Denies any lightheadedness, syncope. No orthopnea, PND, leg edema. No chest pain. He said his baseline heart rate generated remains elevated in 100-110 range. Review of Systems Constitutional: Constitutional: Reports no additional constitutional complaints Eyes: Eyes: Reports no additional eye complaints Cardiovascular: Cardiovascular: Denies chest pain, Reports rapid heart rate, Denies lightheadedness, Denies Loss of Consciousness, Reports dyspnea (After prolonged coughing), Denies orthopnea and Denies paroxysmal nocturnal dyspnea Respiratory: Respiratory: Reports cough and Reports dyspnea (After prolonged coughing) Gastrointestinal: Gastrointestinal: Reports no additional gastrointestinal complaints Genitourinary: Genitourinary: Reports no additional male genitourinary complaints Musculoskeletal: Musculoskeletal: Reports no additional musculoskeletal complaints Integumentary/Breasts: Skin/Breast: Reports system reviewed and no additional complaints, except as docu Neurologic: Reports system reviewed and no additional complaints, except as documented Psychiatric: Psychiatric: Reports no additional psychiatric complaints Endocrine: Endocrine: Reports no additional endocrine complaints [facility] Past Medical History Medical History Obesity (BMI 30-39.9) Essential hypertension Allergic rhinitis due to allergen Cough MARIAN on CPAP MARIAN (obstructive sleep apnea) Social History Social History Household Members: None Housing: Apartment Do you presently have visiting nurse or other home services: No Alcohol intake: never Patient Tobacco Use Status: Never used Tobacco Smoked in Last 30 Days: No Use of substances other than those prescribed or required for medical reasons: No Have you been hit, kicked, punched, or otherwise hurt by someone within the past year? If so, by whom?: No Advance Directives: No Advance Directives Information Provided: No Do you have a plan to hurt others: No Plan Recently lost weight without trying: No Nutrition Risks: No Nutritional Risk Meds Allergies Allergy/AdvReac Type Severity Reaction Status Date / Time No Known Drug Intolerances Allergy Mild UNKNOWN Verified 05/13/24 14:43 Home Medications ?Medication ?Instructions ?Recorded ?Confirmed ?Last Taken ?Type cholecalciferol (vitamin D3) 25 25 mcg PO DAILY 09/02/20 05/14/24 05/13/24 History mcg (1,000 unit) capsule citalopram 10 mg tablet 10 mg PO DAILY 09/02/20 05/14/24 05/13/24 History omeprazole 20 mg capsule,delayed 20 mg PO DAILY@0630 09/02/20 05/14/24 05/13/24 History release clonazepam 2 mg tablet 2 mg PO DAILY PRN Anxiety 04/26/21 05/14/24 Unknown History bupropion HCl 75 mg tablet 75 mg PO BEDTIME 05/14/24 05/14/24 05/12/24 History omega 2-zis-sig-fish oil 1,000 mg 1 cap PO DAILY 05/14/24 05/14/24 05/13/24 History (120 mg-180 mg) capsule (Fish Oil) pravastatin 40 mg tablet 40 mg PO DAILY 05/14/24 05/14/24 05/13/24 History Physical Exam Vital Signs: Vital Signs: Last Vital Signs Temp 0 F L 05/14/24 10:24 Pulse 93 05/14/24 10:24 Resp 18 05/14/24 10:24 BP 129/81 05/14/24 10:24 Pulse Ox 96 05/14/24 10:24 O2 Del Method Room Air 05/14/24 10:24 BMI result Body Mass Index 38.0 Const: General: cooperative, comfortable, no acute distress, alert and awake Nutritional Appearance: obese Orientation/consciousness: patient oriented x3 Limitations: no limitations HEENT: Head: Yes normocephalic and Yes atraumatic Neck: Neck: Yes trachea midline, Yes supple and Yes no JVD Resp: Effort & Inspection: normal respiratory effort Auscultation: clear to auscultation bilaterally Cardio: Jugular venous distension: no JVD Rate: regular rate Rhythm: regular rhythm Heart sounds: S1 normal heart sound present, S2 normal heart sound present, no click, no gallops and no murmurs GI: Auscultation: normal bowel sounds Skin: General skin exam: no rashes or lesions noted Neuro: General: patient oriented x3 and no focal motor deficits Extrem: General: Yes no clubbing, cyanosis or edema Psych: Appearance: grossly normal Objective Labs and Meds 05/14/24 05:12 05/14/24 05:12 Lab results: Laboratory Results - last 24 hr 05/13/24 05/13/24 05/13/24 14:56 19:14 21:59 WBC 8.8 RBC 5.37 Hgb 15.5 Hct 46.1 MCV 85.8 MCH 28.9 MCHC 33.6 RDW 13.3 Plt Count 237 MPV 10.0 Immature Gran % (Auto) 0.8 H Neut % (Auto) 79.0 H Lymph % (Auto) 9.7 L Blanco % (Auto) 7.8 Eos % (Auto) 2.2 Baso % (Auto) 0.5 Lymph # (Auto) 0.9 L Blanco # (Auto) 0.7 Eos # (Auto) 0.2 Baso # (Auto) 0.0 Abs Immat Gran (auto) 0.07 H Absolute Neuts (auto) 6.9 Absolute Nucleated RBC 0.000 Nucleated RBC % (auto) 0.0 PT 11.8 INR 1.0 D-Dimer High Sensitivty < 150 Sodium 137 Potassium 4.1 Chloride 104 Carbon Dioxide 24 Anion Gap 13 BUN 12 Creatinine 1.00 Estim Creat Clear Calc 112.7 Estimated GFR > 60 Random Glucose 91 Lactic Acid 1.3 Calcium 9.6 Magnesium 1.8 Total Bilirubin 0.7 Direct Bilirubin 0.2 AST 36 ALT 54 H Alkaline Phosphatase 100 Troponin I High Sens < 2.7 < 2.7 B-Natriuretic Peptide < 10 Total Protein 8.3 H Albumin 4.2 TSH 1.95 Influenza Type A (PCR) NEGATIVE Influenza Type B (PCR) NEGATIVE RSV RNA Qual (PCR) NEGATIVE SARS-CoV-2 RNA (RT-PCR) NEGATIVE 05/14/24 05:12 WBC 8.6 RBC 5.01 Hgb 14.3 Hct 42.7 MCV 85.2 MCH 28.5 MCHC 33.5 RDW 13.6 Plt Count 240 MPV 10.1 Immature Gran % (Auto) Neut % (Auto) Lymph % (Auto) Blanco % (Auto) Eos % (Auto) Baso % (Auto) Lymph # (Auto) Blanco # (Auto) Eos # (Auto) Baso # (Auto) Abs Immat Gran (auto) Absolute Neuts (auto) Absolute Nucleated RBC 0.000 Nucleated RBC % (auto) 0.0 PT INR D-Dimer High Sensitivty Sodium 135 Potassium 3.5 Chloride 106 Carbon Dioxide 21 L Anion Gap 12 BUN 11 Creatinine 0.91 Estim Creat Clear Calc 123.8 Estimated GFR > 60 Random Glucose 129 H Lactic Acid Calcium 8.9 D Magnesium Total Bilirubin Direct Bilirubin AST ALT Alkaline Phosphatase Troponin I High Sens B-Natriuretic Peptide Total Protein Albumin TSH Influenza Type A (PCR) Influenza Type B (PCR) RSV RNA Qual (PCR) SARS-CoV-2 RNA (RT-PCR) Imaging Radiologist's impression: Impressions Chest X-Ray 05/13/24 14:43 IMPRESSION: Lingular scarring. Electronically signed by: Nahun Oseguera MD 05/13/2024 03:[address] [facility] Assessment and Plan (1) Sinus tachycardia: Status: Acute Sinus tachycardia without any other obvious significant cause such as hyperthyroidism, anemia, pulmonary embolism, CHF, acute coronary syndrome, anxiety, patient appears pretty on anxious. , use of any stimulant drugs. I would check plasma metanephrines. He said he has always had faster heart rate, question suffering from inappropriate sinus tachycardia, autonomic dysfunction. At this point time would suggest to switch his lisinopril to long-acting Inderal 120 mg for both blood pressure control as well as fast heart rate control. Blood work has been already drawn. Will set up for outpatient follow-up with Holter and echocardiogram. I think patient can be safely discharged home for treatment of his most likely cough related to bronchitis. Clinically he is not wheezing at this point time. Cough suppressant should be provided. He is advised to maintain adequate hydration. Continue CPAP therapy. Will follow-up as outpatient. Procedures Date of Service Date of Service: 05/14/24
[2024-05-20 08:04] LABS: Metanephrine, Free 26 pg/mL (<=57); Normetanephrines, Free 183 pg/mL (<=148); Total Metanephrine, Free 209 pg/mL (<=205)
== END 2024-05-14 10:39 | disposition home or self-care (01) ==
LOC: HO.ED 19:47 → HO.EDOVER 05-14 00:47
PROVIDERS: Nurse Practitioner Family; Physician Assistant Medical; Admitting Provider Student in an Organized Health Care Education/Training Program; Emergency Provider Emergency Medicine Emergency Medical Services; PCP Internal Medicine; Visit Provider Nurse Practitioner Acute Care
DX: R00.0 Tachycardia, unspecified (principal); R06.02 Shortness of breath; R05.9 Cough, unspecified; G47.33 Obstructive sleep apnea (adult) (pediatric); I10 Essential (primary) hypertension; E66.9 Obesity, unspecified; Z68.38 Body mass index [BMI] 38.0-38.9, adult; Z79.899 Other long term (current) drug therapy; Z99.89 Dependence on other enabling machines and devices; Z03.818 Encounter for observation for suspected exposure to other biological agents ruled out
CPT/HCPCS: 0241U; 36415; 71046; 71275; 80048; 80076; 83605; 83735; 83835; 83880; 84443; 84484; 85025; 85027; 85379; 85610; 87040; 93005; 94660; 96360; 96361; 96372; 99222; 99285; J1650; Q9957; Q9967

== ENCOUNTER → 2024-05-13 14:43 | Outpatient (BNV) | payer OTHER, SELFPAY | PROVIDERS: Admitting Provider Student in an Organized Health Care Education/Training Program; Emergency Provider Emergency Medicine Emergency Medical Services; PCP Internal Medicine; Visit Provider Internal Medicine Cardiovascular Disease | DX: R94.31 Abnormal electrocardiogram [ECG] [EKG] (principal); R00.0 Tachycardia, unspecified; I45.10 Unspecified right bundle-branch block | CPT/HCPCS: 93010 ==

== ENCOUNTER → 2024-05-13 14:43 | Outpatient (BNV) | payer OTHER, SELFPAY | PROVIDERS: PCP Internal Medicine; Visit Provider Radiology Diagnostic Radiology | DX: R06.02 Shortness of breath (principal); J84.10 Pulmonary fibrosis, unspecified; K76.0 Fatty (change of) liver, not elsewhere classified | CPT/HCPCS: 71046; 71275 ==

== ENCOUNTER → 2024-05-13 19:43 | Outpatient (BNV) | payer OTHER, SELFPAY | PROVIDERS: Emergency Provider Emergency Medicine Emergency Medical Services; PCP Internal Medicine; Visit Provider Physician Assistant | DX: R05.9 Cough, unspecified (principal); R00.0 Tachycardia, unspecified; E66.9 Obesity, unspecified; Z68.38 Body mass index [BMI] 38.0-38.9, adult | CPT/HCPCS: 99223; 99239 ==

== ENCOUNTER → 2024-05-14 00:46 | Outpatient (BNV) | payer OTHER, SELFPAY | PROVIDERS: Admitting Provider Student in an Organized Health Care Education/Training Program; Emergency Provider Emergency Medicine Emergency Medical Services; PCP Internal Medicine; Visit Provider Internal Medicine Cardiovascular Disease | DX: R00.0 Tachycardia, unspecified (principal) | CPT/HCPCS: 99222 ==

== ENCOUNTER → 2024-06-04 14:00 | Outpatient (REF) | payer OTHER, SELFPAY ==
--- NOTE | 2024-06-04 14:04 | CA_ITS ---
Transthoracic Echocardiogram Patient (Last, First, Middle): Boy Steen, Gender: Male Date of : 1975 Age: 48 Procedure Date: 06/04/2024 Procedure Type: Transthoracic Echocardiogram Location: OP Height: 172.72 cm Weight: 113.4 kg BSA: 2.25 m2 Heart Rate: bpm BP: 118 / 78 mmHg Loader Machine: TO Referring MD: Marcello Beach MD Gamma Ray Operator: Marcello Beach MD Symptoms: R00.0 - Tachycardia, unspecified Study Quality: Fair/Contrast ECG Rhythm: Sinus Conclusions: - 1. Normal LV ejection fraction 55-60% with impaired relaxation filling pattern 2. Mildly dilated right-sided chambers with preserved RV contractility 3. Normal cardiac valvular Dopplers 4. No gross pericardial effusion Findings Procedure Information Contrast agent, definity, is being given per protocol without apparent complications. Left Ventricle Normal left ventricular size, thickness, and systolic function. The visually estimated ejection fraction is between 55-60%. Spectral Doppler is indicative of an impaired relaxation filling pattern. E/E prime ratio is between 8 and 15 consistent with indeterminate filling pressures. There is mild septal asymmetric hypertrophy. Right Ventricle The right ventricle was not well visualized. Mildly increased right ventricular cavity size. There is normal right ventricular systolic function. Atria The left atrium is normal in size. Interatrial shunt cannot be excluded. The right atrium is mildly dilated. Aortic Valve The aortic valve was not well visualized. There is no aortic valve stenosis. There is no aortic valve regurgitation. Mitral Valve Likely normal mitral valve structure and function. There is trace mitral valve regurgitation. There is no mitral valve stenosis. Pulmonic Valve The pulmonic valve was not well visualized. Tricuspid Valve Likely normal tricuspid valve structure and function. Tricuspid regurgitation envelope is inadequate for calculation of right ventricular systolic pressure. Normal right atrial pressure. There is no evidence of pulmonary hypertension. Great Vessels The pulmonary artery was not well visualized. There is no dilatation of the ascending aorta measuring 2.80 cm. Venous The inferior vena cava is normal in size and collapses greater than 50% with inspiration. Pericardium/Pleural There is no evidence of pericardial effusion. Prior Study Comparison No significant change compared to prior study dated: 11/05/2020. Measurements 2D Linear Measurements IVSd: 1.20 0.6-0.9/0.6-1.0 cm LVIDd: 5.20 3.9-5.3/4.2-5.9 cm LVIDd Index: 2.31 2.4-3.2/2.2-3.1 cm/m2 LVIDs: 3.20 2.0-3.6 cm LVPWd: 0.71 0.7-1.1 cm LA Diam: 3.50 2.7-3.8/3.0-4.0 cm LAIDs Index: 1.56 1.5-2.3 cm/m2 LV Mass: 227.57 67-162/88-224 g LV Mass Index: 101.14 43-95/49-115 g/m2 LVOT Diam: 2.20 3.0+(-)1.3 cm 2D Systolic Function EF 4C: 55.80 >55% EF 2C: 56.50 >55% EF BiP: 55.60 >55% Mitral Valve MV Pk E: 0.51 MV PK A: 0.61 MV Decel Time: 209.00 E/A: 0.80 E'Lateral: 6.74 E'Medial: 4.79 E/E' Med: 10.70 E/E' Lat: 7.60 PHT: 61.00 MVA PHT: 3.61 Decel [place]: 2.45 Aortic Valve AoV Pk Cheo: 1.15 AoV Mn Cheo: 0.81 AoV VTI: 0.20 AoV Pk Grad: 5.00 Aov Mn Grad: 3.00 YENIFER Cont.VTI: 2.90 LVOT LVOT Pk Cheo: 0.87 LVOT Mn Cheo: 0.59 LVOT VTI: 0.15 LVOT Pk Grad: 3.00 LVOT Mn Grad: 2.00 LVOT Diam: 2.20 LVOT Area: 3.80 Diastolic Function MV Pk E: 0.51 MV Pk A: 0.61 E/A: 0.80 E'Medial: 4.79 E/E' Med: 10.70 E' Laterial: 6.74 E/E' Lat: 7.60 Right Ventricle TAPSE (mm): 18.00 TVS' Cheo: 9.46 Great Vessels Aorta Sinus of Valsalva: 3.31 2.0-3.[address] [place]: 2.54 1.7-3.4 cm Ao Asc: 2.80 2.1-3.4 cm Ao Arch: 2.60 Updated in Other Vendor System with Status of Final Marcello Beach MD electronically signed on 06/05/2024 4:34:54 PM with status of Final
== END ==
LOC: HO.CARD 14:00
PROVIDERS: PCP Internal Medicine; Visit Provider Internal Medicine Cardiovascular Disease
DX: R00.0 Tachycardia, unspecified (principal); R06.02 Shortness of breath
CPT/HCPCS: 93242; 93306; Q9957

== ENCOUNTER → 2024-06-04 14:04 | Outpatient (BNV) | payer OTHER, SELFPAY | PROVIDERS: PCP Internal Medicine; Visit Provider Internal Medicine Cardiovascular Disease | DX: I42.2 Other hypertrophic cardiomyopathy (principal) | CPT/HCPCS: 93306 ==

== ENCOUNTER 2024-06-11 14:58 | Outpatient (RCR) | payer OTHER, SELFPAY | END 2024-06-26 12:13 | disposition home or self-care (01) | LOC: HO.PT 14:58 | PROVIDERS: PCP Internal Medicine; Visit Provider Family Medicine | DX: M47.816 Spondylosis without myelopathy or radiculopathy, lumbar region (principal) | CPT/HCPCS: 97110; 97161; 97530; 97535 ==

== ENCOUNTER 2024-06-18 14:04 | Outpatient (AMB) | payer OTHER, SELFPAY ==
[2024-06-18 14:06] VITALS: BP 116/60; PULSE 87; BMI 37.5
--- NOTE | 2024-06-18 14:06 | A.OFFVIS_ITS ---
Vital Signs 06/18/24 14:06 Height 5 ft 8 in Weight 246 lb 14.684 oz BMI 37.5 BP 116/60 Blood Pressure Location Lt brachial Position Sitting Pulse 87 Pulse Source Pulse Oximeter Intake Visit Reasons: f/up after testing & holter It Security Engineer Required: No Accompanied by: Self / Same As Patient Allergies No Known Drug Intolerances Allergy (Mild, Verified 05/13/24 14:43) UNKNOWN Medication List - Last Reconciled 06/18/24 by Jozef Bauer NP benzonatate 100 mg PO TID PRN bupropion HCl 75 mg PO BEDTIME cholecalciferol (vitamin D3) 25 mcg PO DAILY citalopram 10 mg PO DAILY clonazepam 2 mg PO DAILY PRN fluticasone propionate 50 mcg/actuation 2 sprays intranasal DAILY 30 days loratadine 10 mg PO DAILY omega 4-qap-otw-fish oil 1,000 (120-180) mg (Fish Oil) 1 cap PO DAILY omeprazole 20 mg PO DAILY@0630 pravastatin 40 mg PO DAILY propranolol ER (Inderal LA) 120 mg PO DAILY HPI Comments Details: This is a 48-year-old male patient presenting for a hospital discharge follow-up visit. Patient with a history of hypertension, sleep apnea, and obesity who was recently hospitalized for shortness of breath and cough due to a viral illness. During his hospitalization, he developed sinus tachycardia without any obvious cause. This improved with hydration and switching his medication from lisinopril to propranolol. A Holter monitor and echocardiogram was ordered for further evaluation. Today, the patient denies any symptoms of exertional chest pain, shortness of breath, palpitations, dizziness, fatigue, orthopnea, PND, leg edema, presyncope, or syncope. He mentions that he initially had to stop propranolol due to feeling unwell from it but has had no issues after resuming the medication. The patient reports being compliant with his med prescribed medications and states his blood pressures has been stable at home. COUNTS INCLUDE 234 BEDS AT THE [facility] Medical History Obesity (BMI 30-39.9) Essential hypertension Allergic rhinitis due to allergen Cough MARIAN on CPAP MARIAN (obstructive sleep apnea) Family History (Updated 06/18/24 @ 14:10 by Krissy Fall CMA) Father Heart disease DM2 (diabetes mellitus, type 2) Heart murmur Social History Household Members: None Housing: Apartment Do you presently have visiting nurse or other home services: No Alcohol intake: never Patient Tobacco Use Status: Never used Tobacco Review of Systems Const Denies chills, Denies fatigue, Denies fever(s), Denies weight gain and Denies weight loss ENT Denies dizziness Card Denies chest pain, Denies leg edema, Denies lightheadedness, Denies palpitations, Denies dyspnea on exertion, Denies orthopnea and Denies other Resp Denies cough and Denies dyspnea on exertion GI Denies hematochezia and Denies change in stool character Musc Denies abnormal gait, Denies muscle weakness, Denies numbness, Denies radiating pain into limb and Denies tingling Neuro Denies abnormal gait, Denies dizziness, Denies numbness and Denies tingling Endo Denies fatigue and Denies palpitations Physical Exam Vital Signs: Last Vital Signs Pulse 87 06/18/24 14:06 BP 116/60 06/18/24 14:06 BMI result Body Mass Index 37.5 Const General: cooperative, healthy appearing, comfortable and no acute distress Orientation/consciousness: patient oriented x3 HEENT Head: Yes normal to inspection Neck Neck: Yes normal visual inspection, Yes trachea midline and Yes supple Chest Chest palpation & inspection: normal inspection of the chest Resp Effort & Inspection: normal respiratory effort Auscultation: clear to auscultation bilaterally, no crackles, no rales, no rhonchi and no wheezes Cardio Jugular venous distension: no JVD Palpation: normal PMI Rate: regular rate Rhythm: regular rhythm Heart sounds: S1 normal heart sound present, S2 normal heart sound present, no click, no gallops, no murmurs and no rubs Peripheral pulses: Peripheral pulses 2+ throughout GI Inspection: Yes normal to inspection Palpation (GI): Soft to palpation Auscultation: normal bowel sounds Skin General skin exam: no rashes or lesions noted Neuro General: patient oriented x3 Extrem General: Yes normal to inspection, No no pedal edema and No calf tenderness Psych Appearance: grossly normal Mental Status: mental status grossly normal Speech and movement: Normal speech and movement present Assessment & Plan Assessment & Plan (1) Essential hypertension: Code(s): I10 - Essential (primary) hypertension Category: Medical Plan: 06/04/2024-echo showed a normal EF 55-60% with impaired relaxation filling pattern, mildly dilated right-sided chambers with preserved RV contractility. Blood pressure today is well-controlled. Patient states his blood pressures at home have also been stable. Continue Inderal daily. Advised to continue monitoring blood pressures at home. Vernon goal less than 130/80. (2) Sinus tachycardia: Code(s): R00.0 - Tachycardia, unspecified Category: Medical Plan: Patient states he mailed his Holter back. We will give him a call following the results. No changes at this time. (3) MARIAN on CPAP: Code(s): G47.33 - Obstructive sleep apnea (adult) (pediatric); Z99.89 - Dependence on other enabling machines and devices Category: Medical Plan: Continue CPAP therapy. Advised heart healthy diet, losing weight, and regular exercise. Patient will follow-up in the yearly basis, sooner if needed. Patient will call us with any concerns or change in symptoms. This note was generated using voice recognition software. While every effort has been made to ensure accuracy and proper commanding officer motorized squad, there may be occasional errors that could affect the content or meaning of the described symptoms. Medications: Refilled propranolol ER (Inderal LA) 120 mg PO DAILY 90 caps 3RF Coding Level of Care Code Est Pt Level 4 (89241) Diagnoses Essential hypertension I10 Sinus tachycardia R00.0 MARIAN on CPAP G47.33; Z99.89 Time Spent (min) 31 Comment Time spent in reviewing the chart, test results, assessment, counseling and documentation.
--- OUTSIDE RECORDS SUMMARY | 2024-06-18 17:37 | XMS_ITS | Encounter Summary ---
Author Organization [employer] Address [address] [place] [address] Care Team Providers Care Deputy Sheriff Name Role Phone Analisa Hansen MD Primary Care Provide r Reason for Visit * Reason Comments Med Refill Encounter Details Date Type Department Care Team (Late st Contact Info) Description 12/29/2022 Refill [facility] [address], [place] [phone] Victoria Gonsalves ANP [address] [place], [place] [phone] Shortness of breath Social History Tobacco Use Types Packs/Day Years Used Date Smoking Tobacco: Never Smokeless Tobacco: Never Alcohol Use Standard Drinks/Week Comments Never 0 (1 standard drink = 0.6 oz pur e alcohol) Depression Answer Date Recorded Patient Health Questionnaire-9 Score 12 09/07/2022 Depression Answer Date Recorded Patient Health Questionnaire-2 Score 3 09/07/2022 Sex and Gender Information Value Date Recorded Sex Assigned at Male 02/21/2022 10:17 AM EDT Legal Sex Male 10:17 AM EDT Gender Identity Male 02/21/2022 10:17 AM EDT Sexual Orientation Straight 02/21/2022 10 :17 AM EDT documented as of this encounter Plan of Treatment Upcoming Encounters Date Type Department Care Team (Late st Contact Info) Description 06/25/2024 3:15 PM EST Telemedicine [facility] [address] [place] [address] Analisa Hansen MD [address] [place], [place] [phone] 11/06/2024 1:00 PM EDT Office Visit [facility] [address], [place] [phone] Loly Victoria [address], [place] [phone] documented as of this encounter Visit Diagnoses Diagnosis Shortness of breath documented in this encounter Additional Health Concerns Assessment Noted Time PHQ-9 Depression Total Score: 12 023 11:55 AM EDT documented as of this encounter Care Teams Deputy Sheriff Relationship Specialty Start Date End Date Analisa Hansen MD [address] [place] [address] PCP - General Family Medicine 03/07/19 documented as of this encounter
--- OUTSIDE RECORDS SUMMARY | 2024-06-18 17:37 | XMS_ITS | Encounter Summary ---
Author Organization [employer] Address [address] [place] [address] Care Team Providers Care Fisher Clam Name Role Phone Analisa Hansen MD Primary Care Provide r Reason for Visit * Reason Comments Med Refill Encounter Details Date Type Department Care Team ([facility] st Contact Info) Description 04/01/2023 Refill [facility] [address] [place], [place] [phone] Emil Aparicio, DMD [address] [place] [address] Dental caries Social History Tobacco Use Types Packs/Day Years Used Date Smoking Tobacco: Never Smokeless Tobacco: Never Alcohol Use Standard Drinks/Week Comments Never 0 (1 standard drink = 0.6 oz pur e alcohol) Depression Answer Date Recorded Patient Health Questionnaire-9 Score 12 09/07/2022 Housing Stability Answer Date Recorded What is your housing situation today? I have singh graves 02/08/[address] you li ve. Do you have problems with any of the following? None of the above 02/08/2023 Food Insecurity Answer Date Recorded Within the past 12 months, y ou worried that your food would run out before you got money to buy more: Never True 02/08/2023 Within the past 12 months,th e food you bought just didn't last and you didn't have enough money to get more: Never True Transportation Answer Date Recorded In the past 12 months, has l ack of transportation kept you from medical appts, meetings, work or from getting things needed for daily living? No 02/08/2023 Utilities Answer Date Recorded In the past 12 months, has t he electric, gas, oil or water company threatened to shut off services in your home? No 02/08/2023 Depression Answer Date Recorded Patient Health Questionnaire-2 Score 3 09/07/2022 Sex and Gender Information Value Date Recorded Sex Assigned at Male 02/21/2022 10:17 AM EDT Legal Sex Male 10:17 AM EDT Gender Identity Male 02/21/2022 10:17 AM EDT Sexual Orientation Straight 02/21/2022 10 :17 AM EDT documented as of this encounter Miscellaneous Notes * Telephone Encounter - Emil Aparicio DMD - 04/03/2023 8:22 AM EST Approving, but needs appt for additional refills. documented in this encounter Plan of Treatment Upcoming Encounters Date Type Department Care Team (Late st Contact Info) Description 06/25/2024 3:15 PM EST Telemedicine [facility] [address] [place] [address] Analisa Hansen MD [address] [place] [address] 11/06/2024 1:00 PM EDT Office Visit [facility] [address] [place] [address] Devon Victoriaaris [address] [place] [address] documented as of this encounter Visit Diagnoses Diagnosis Dental caries Unspecified dental caries documented in this encounter Additional Health Concerns Assessment Noted Time PHQ-9 Depression Total Score: 12 023 11:55 AM EDT documented as of this encounter Care Teams Fisher Clam Relationship Specialty Start Date End Date Analisa Hansen MD [address] [place] [id number] PCP - General Family Medicine 03/07/19 documented as of this encounter
--- OUTSIDE RECORDS SUMMARY | 2024-06-18 17:37 | XMS_ITS | Encounter Summary ---
Author Organization [employer] Address [address] [place] [address] Care Team Providers Care Preparation Supervisor Canning Name Role Phone Analisa Hansen MD Primary Care Provide r Encounter Details Date Type Department Care Team ([facility] st Contact Info) Description 05/22/2024 10:30 AM EST Office Visit [facility] [address] [place], [place] [phone] Lexy Bright CNP [address] [place], [place] [phone] Acute cough (Primary Dx); Essential hypertension; Tachycardia Social History Tobacco Use Types Packs/Day Years Used Date Smoking Tobacco: Never Passive Smoke Exposure: Never Smokeless Tobacco: Never Alcohol Use Standard Drinks/Week Comments Never 0 (1 standard drink = 0.6 oz pur e alcohol) Depression Answer Date Recorded Patient Health Questionnaire-9 Score 0 05/23/2023 Patient Health Questionnaire-9 Score 0 05/23/2023 Last PHQ-9: Questionnaire Data Not on file 0 05/23/2023 Housing Stability Answer Date Recorded What is your housing situation today? I have singh graves 11/21/[address] you li ve. Do you have problems with any of the following? None of the above 11/21/2023 Food Insecurity Answer Date Recorded Within the past 12 months, y ou worried that your food would run out before you got money to buy more: Never True 11/21/2023 Within the past 12 months,th e food you bought just didn't last and you didn't have enough money to get more: Never True Transportation Answer Date Recorded In the past 12 months, has l ack of transportation kept you from medical appts, meetings, work or from getting things needed for daily living? No 11/21/2023 Utilities Answer Date Recorded In the past 12 months, has t he electric, gas, oil or water company threatened to shut off services in your home? No 11/21/2023 Depression Answer Date Recorded Patient Health Questionnaire-2 Score 0 05/23/2023 Internet Access Answer Date Recorded Internet Access Q1 Yes 12/22/2023 Internet Access Q2 Not on file 12/22/2023 Sex and Gender Information Value Date Recorded Sex Assigned at Male 02/21/2022 10:17 AM EDT Legal Sex Male 10:17 AM EDT Gender Identity Male 02/21/2022 10:17 AM EDT Sexual Orientation Straight 02/21/2022 10 :17 AM EDT documented as of this encounter Last Filed Vital Signs Vital Sign Reading Time Taken Comments Blood Pressure 136/75 05/22/2024 10:28 AM EST Pulse 88 05/22/2024 10:28 AM EST Temperature 36.7 ??C (98 ??F) 05/22/2024 10:28 AM EST Respiratory Rate 20 05/22/2024 10:28 AM EST Oxygen Saturation 97% 05/22/2024 10:28 AM EST Inhaled Oxygen Concentration - - Weight 111 kg (245 lb) 05/22/2024 10:28 AM EST Height 172.7 cm (5' 8 ) 05/22/2024 10:28 AM EST Body Mass Index 37.25 05/22/2024 10:28 AM EST documented in this encounter Progress Notes * Lexy Bright CNP - 05/22/2024 10:30 AM EST Boy Beard is a 48 y.o. male who presents for HDF. Pt reports that he has stoppedtaking propranolol d/t nausea. He says he's been checking his pulse for the last 3 days and it was running in 70s-80s. He reports his cough has improved, it is still not productive., he stopped taking the benzonatate because he found It ineffective. He says the cough is worse at night but is tolerable. Denies fever, chills, sore throat difficulty breathing or swallowing. HPI [facility] (05/13/24-05/14/24) Patient presented for evaluation of SOB and non-productive cough. Reports recent sick contacts. COVID, RSV and flu were all negative. No infectious etiology found. Given benzonatate as needed for forcough. Patient found to be tachycardic. Evaluated by cardiology, treated with IVF and propranolol. Chest XR-neg. CTA-neg. Troponins neg x2. EKG showing sinus tachycardia. Labs wnl. Discharged home tofollow up with cardiology as needed. No prior cardiac hx besides HTN, lisinopil d/c'd in ED. Patient Active Problem List Diagnosis Obesity (BMI 30-39.9) Numbness of hand Mood disorder (CMS/HCC) Mixed anxiety and depressive disorder Lumbar spondylosis Hypertriglyceridemia Impaired fasting glucose Gastroesophageal reflux disease without esophagitis Essential hypertension Dyslipidemia Dizziness Chronic pain of both shoulders Skin tag Postcalcaneal bursitis Obstructive sleep apnea syndrome Class 2 obesity due to excess calories without serious comorbidity with body mass index (BMI) of 35.0 to 35.9 in adult Restless legs syndrome (RLS) Shortness of breath Colon cancer screening Dental plaque on multiple teeth Acute gingival inflammation Gingival bleeding Dental calculus Back strain Class 2 severe obesity due to excess calories with serious comorbidity and body mass index (BMI) of36.0 to 36.9 in adult (CMS/HCC) Neck pain Chronic left shoulder pain Acute cough Tachycardia No Known Allergies Review of Systems Constitutional: Negative for chills, diaphoresis, fatigue and fever. HENT: Negative for congestion, ear discharge, ear pain, hearing loss, postnasal drip, sinus pressure, sinus pain, sore throat and trouble swallowing. Respiratory: Positive for cough. Negative for choking, chest tightness, shortness of breath and wheezing. Cardiovascular: Negative for chest pain and palpitations. Musculoskeletal: Negative for myalgias. Neurological: Negative for headaches. Vitals: 05/22/24 1028 BP: 136/75 BP Location: Right arm Patient Position: Sitting BP Cuff Size: Large adult Pulse: 88 Resp: 20 Temp: 98 ??F (36.7 ??C) TempSrc: Oral SpO2: 97% Weight: 245 lb (111 kg) Height: 5' 8 (1.727 m) Physical Exam Vitals reviewed. Constitutional: General: He is not in acute distress. Appearance: Normal appearance. He is not ill-appearing, toxic-appearing or diaphoretic. HENT: Head: Normocephalic and atraumatic. Right Ear: Tympanic membrane, ear canal and external ear normal. There is no impacted cerumen. Left Ear: Tympanic membrane normal. There is no impacted cerumen. Ears: Comments: +erythema in L ear canal Mouth/Throat: Mouth: Mucous membranes are moist. Pharynx: Posterior oropharyngeal erythema present. Comments: +Mild erythema in throat Eyes: Extraocular Movements: Extraocular movements intact. Conjunctiva/sclera: Conjunctivae normal. Pupils: Pupils are equal, round, and reactive to light. Cardiovascular: Rate and Rhythm: Normal rate and regular rhythm. Pulses: Normal pulses. Heart sounds: Normal heart sounds. No murmur heard. No friction rub. No gallop. Pulmonary: Effort: Pulmonary effort is normal. No respiratory distress. Breath sounds: Normal breath sounds. No stridor. No wheezing, rhonchi or rales. Chest: Chest wall: No tenderness. Musculoskeletal: Cervical back: Neck supple. No tenderness. Right lower leg: No edema. Left lower leg: No edema. Lymphadenopathy: Cervical: No cervical adenopathy. Neurological: General: No focal deficit present. Mental Status: He is alert and oriented to person, place, and time. Mental status is at baseline. Psychiatric: Mood and Affect: Mood normal. Behavior: Behavior normal. Thought Content: Thought content normal. Judgment: Judgment normal. Problem List Items Addressed This Visit Essential hypertension Current Assessment & Plan BP at goal of <140/90 today Pt will continue not to take propranolol d/t unwanted SE Will send BP monitor to pharmacy so patient can take daily Bps, instructed pt to call if BP consistently >140/90 Acute cough - Primary Current Assessment & Plan Cough sx are improving, sx likely d/t post inflammation after URI Will send mucinex for cough suppression Pt may RTC if symptoms worsen or do not improve. Relevant Medications guaiFENesin (Mucinex) 600 MG 12 hr tablet Tachycardia Current Assessment & Plan Pulse wnl today 88bpm Pt will continue to not take propranolol due to side effects Pt will continue to check pulse at home and will call office if it is greater than 105 [facility] [employer] Attestation [employer] Resident Attestation: Patient was seen and evaluated by Lexy Bright NP, in collaboration with Victorina Graef PIPE [employer] who has reviewed my assessment and plan. I, Victorina Chow [employer]IPE [employer] , have reviewed the resident's note and agree with the assessment & plan of care as documented above. documented in this encounter Miscellaneous Notes * Assessment & Plan Note - Lexy Bright CNP - 05/22/2024 12:07 PM EST Associated Problem(s): Acute cough Cough sx are improving, sx likely d/t post inflammation after URI Will send mucinex for cough suppression Pt may RTC if symptoms worsen or do not improve. * Assessment & Plan Note - Lexy Bright CNP - 05/22/2024 12:06 PM EST Associated Problem(s): Essential hypertension BP at goal of <140/90 today Pt will continue not to take propranolol d/t unwanted SE Will send BP monitor to pharmacy so patient can take daily Bps, instructed pt to call if BP consistently >140/90 * Assessment & Plan Note - Lexy Bright CNP - 05/22/2024 12:04 PM EST Associated Problem(s): Tachycardia Pulse wnl today 88bpm Pt will continue to not take propranolol due to side effects Pt will continue to check pulse at home and will call office if it is greater than 105 documented in this encounter Plan of Treatment Upcoming Encounters Date Type Department Care Team (Late st Contact Info) Description 06/25/2024 3:15 PM EST Telemedicine [facility] [address] [place] [address] Analisa Hansen MD [address] [place] [address] 11/06/2024 1:00 PM EDT Office Visit [facility] [address] [place] [address] Loly Victoria [address] [place] [address] documented as of this encounter Visit Diagnoses Diagnosis Acute cough- Primary Essential hypertension Unspecified essential hypertension Tachycardia Unspecified tachycardia documented in this encounter Additional Health Concerns Assessment Noted Time PHQ-9 Depression Total Score: 0 05/23/19 24 11:05 AM EST documented as of this encounter Care Teams Preparation Supervisor Canning Relationship Specialty Start Date End Date Analisa Hansen MD [address] [place] [address] PCP - General Family Medicine 03/07/19 documented as of this encounter
--- OUTSIDE RECORDS SUMMARY | 2024-06-18 17:37 | XMS_ITS | Encounter Summary ---
Author Organization [employer] Address [address] [place] [address] Care Team Providers Care Web Producer Name Role Phone Analisa Hansen MD Primary Care Provide r Encounter Details Date Type Department Care Team ([facility] st Contact Info) Description 05/09/2024 Orders Only [facility] [address] [place], [place] [phone] Analisa Hansen MD [address] [place], [place] [phone] Social History Tobacco Use Types Packs/Day Years [...] Info) Description 06/25/2024 3:15 PM EST Telemedicine [facility] [address] [place] [address] Analisa Hansen MD [address] [place] [address] 11/06/2024 1:00 PM EDT Office Visit [facility] [address] [place] [address] Esme, Loly [address] [place] [address] documented as of this encounter Visit Diagnoses Not on filedocumented in this encounter Additional Health Concerns Assessment Noted Time PHQ-9 Depression Total Score: 0 05/23/19 24 11:05 AM EST documented as of this encounter Care Teams Web Producer Relationship Specialty Start Date End Date Analisa Hansen MD [address] [place] [address] PCP - General Family Medicine 03/07/19 documented as of this encounter
--- OUTSIDE RECORDS SUMMARY | 2024-06-18 17:37 | XMS_ITS | Encounter Summary ---
Author Organization [employer] Address [address] [facility] [address] [place] [address] Care Team Providers Care Construction Or Leak Gang Laborer Name Role Phone Analisa Hansen MD Primary Care Provide r Reason for Visit * Reason Onset Date Comments Med Change Request Prior Authorization 05/09/2024 [facility] CHARMAINE dickey Encounter Details Date Type Department Care Team (Late st Contact Info) Description 05/09/2024 Refill [facility] [address] [place], [place] [phone] Analisa Hansen MD [address] [place], [place] [phone] Class 2 severe obesity with serious comorbidity and body mass index (BMI) of 38.0 to 38.9 in adult, unspecified obesity type (CMS/HCC) Social History Tobacco Use Types Packs/Day Years [...] encounter Miscellaneous Notes * Telephone Encounter - Sussy Kenny - 05/14/2024 3:19 PM EST PA initiated on Covermymeds for [employer] . Approval/denial pending. documented in this encounter Plan of Treatment Upcoming Encounters Date Type Department Care Team (Late st Contact Info) Description 06/25/2024 3:15 PM EST Telemedicine [facility] [address] [place] [phone] Analisa Hansen MD [address] [place] [address] 11/06/2024 1:00 PM EDT Office Visit [facility] [address] [place], [place] [phone] Loly Victoria [address] [place] [address] documented as of this encounter Visit Diagnoses Diagnosis Class 2 severe obesity with serious comorbidity and body mass index (BMI) of 38.0 to 38.9 in adult, unspecified obesity type (CMS/HCC) documented in this encounter Additional Health Concerns Assessment Noted Time PHQ-9 Depression Total Score: 0 05/23/19 24 11:05 AM EST documented as of this encounter Care Teams Construction Or Leak Gang Laborer Relationship Specialty Start Date End Date Analisa Hansen MD [address] [place] [address] PCP - General Family Medicine 03/07/19 documented as of this encounter
--- OUTSIDE RECORDS SUMMARY | 2024-06-18 17:37 | XMS_ITS | Encounter Summary ---
Author Organization [employer] Address [address] [facility] [address] [place] [address] Care Team Providers Care Merchandise Manager Name Role Phone Analisa Hansen MD Primary Care Provide r Reason for Visit * Reason Comments Med Change Request Encounter Details Date Type Department Care Team ([facility] Contact Info) Description 05/09/2024 Refill [facility] [address] [place], [place] [phone] Analisa Hansen MD [address] [place], [place] [phone] Class 2 severe obesity with serious comorbidity [...] Info) Description 06/25/2024 3:15 PM EST Telemedicine [facility] [address] [place] [phone] Analisa Hansen MD [address] [place] [address] 11/06/2024 1:00 PM EDT Office Visit [facility] [address] [place] [address] [phone] Devon Victoriaaris [address] [place] [address] documented as of this encounter Visit Diagnoses Diagnosis Class 2 severe obesity with serious comorbidity and body mass index (BMI) of 38.0 to 38.9 in adult, unspecified obesity type (CMS/HCC) documented in this encounter Additional Health Concerns Assessment Noted Time PHQ-9 Depression Total Score: 0 05/23/19 24 11:05 AM EST documented as of this encounter Care Teams Merchandise Manager Relationship Specialty Start Date End Date Analisa Hansen MD [address] [place] [phone] PCP - General Family Medicine 03/07/19 documented as of this encounter
--- OUTSIDE RECORDS SUMMARY | 2024-06-18 17:37 | XMS_ITS | Encounter Summary ---
Author Organization [employer] Address [address] [facility] [address] [place] [address] Care Team Providers Care Message Clerk Name Role Phone Analisa Hansen MD Primary Care Provide r Reason for Visit * Reason Onset Date Comments ER Follow-up 05/20/2024 Encounter Details Date Type Department Care Team ([facility] st Contact Info) Description 05/20/2024 Telephone [facility] [address] [place], [place] [phone] Analisa Hansen MD 230 [place], [place] [phone] ER Follow-up Social History Tobacco Use Types Packs/Day Years [...] encounter Miscellaneous Notes * Telephone Encounter - Norris Caro RN - 05/20/2024 4:25 PM EST TC returned to patient for below. Patient was admitted for 1 night for tachycardia and dry cough. Patient was advised to discontinue lisinopril and start propranolol 120 mg. Patient reports he is feeling mostly better since d/c but does report slight dizziness since starting the medication. Patientstates it happens periodically not when sitting but sometimes when walking around or when getting up from sitting position. Patient describes it as mild not severe. Denies any vision changes. Patientis drinking plenty of fluids. Patient HR on [employer] watch is 70s to 80s. Does not have home BP cuff to check BP at home. Patient booked for HDF appt on 05/22/24. Patient advised if dizziness worsens or becomes severe he develops vision changes or chest pain he should seek sooner evaluation. Patient verbalized understanding and agrees with plan. * Telephone Encounter - Cedrick Kenny - 05/20/2024 2:43 PM EST Patient calling to report ED visit on : Date: 05/13/24 Hospital: [facility] Seen for: Irregular heartbeat Symptomatic No Patient advised will forward to team nurse for follow up documented in this encounter Plan of Treatment Upcoming Encounters Date Type Department Care Team (Late st Contact Info) Description 06/25/2024 3:15 PM EST Telemedicine [facility] MED[facility]INE [address] [place] [address] Analisa Hansen MD [address] [place], [place] [phone] 11/06/2024 1:00 PM EDT Office Visit [facility] ADULT DENTAL [address] [place], [place] [phone] Esme, Loly [address] [place], [place] [phone] documented as of this encounter Visit Diagnoses Not on filedocumented in this encounter Additional Health Concerns Assessment Noted Time PHQ-9 Depression Total Score: 0 05/23/19 24 11:05 AM EST documented as of this encounter Care Teams Message Clerk Relationship Specialty Start Date End Date Analisa Hansen MD [address] [place] [address] [phone] PCP - General Family Medicine 03/07/19 documented as of this encounter
--- OUTSIDE RECORDS SUMMARY | 2024-06-18 17:37 | XMS_ITS | Encounter Summary ---
Author Organization [employer] Address [address] [facility] [address] [place] [address] Care Team Providers Care Student Activities Director Name Role Phone Analisa Hansen MD Primary Care Provide r Reason for Visit * Reason Onset Date Comments Prior Authorization 05/15/[address]: [place] Encounter Details Date Type Department Care Team (Late st Contact Info) Description 05/15/2024 Telephone [facility] [address] [place], [place] [phone] Analisa Hansen MD [address] [place] [address] Prior Authorization (MALGORZATA MONTANO Request: Lavell) Social History Tobacco Use Types Packs/Day Years [...] * Telephone Encounter - Sussy Kenny - 05/29/2024 10:11 AM EST [facility] questions received and completed. Returned via Fax on 05/16/24. Fax confirmation was uploaded to Media. * Telephone Encounter - Sussy Kenny - 05/15/2024 7:59 AM EST PA initiated on Covermymeds for [employer] . Approval/denial pending. * Telephone Encounter - Sussy Kenny - 05/15/2024 7:59 AM EST ----- Message from Analisa Cline MD sent at 05/08/2024 3:33 PM EST ----- Please generate PA for zep[employer] documented in this encounter Plan of Treatment Upcoming Encounters Date Type Department Care Team (Late st Contact Info) Description 06/25/2024 3:15 PM EST Telemedicine [facility] [address] [place] [address] Analisa Hansen MD [address] [place] [address] 11/06/2024 1:00 PM EDT Office Visit [facility] ADULT DENT[facility] [address] [place], [place] [phone] Devon Victoriaaris [address] [place], [place] [phone] documented as of this encounter Visit Diagnoses Not on filedocumented in this encounter Additional Health Concerns Assessment Noted Time PHQ-9 Depression Total Score: 0 05/23/19 24 11:05 AM EST documented as of this encounter Care Teams Student Activities Director Relationship Specialty Start Date End Date Analisa Hansen MD [address] [place] [address] [phone] PCP - General Family Medicine 03/07/19 documented as of this encounter
--- OUTSIDE RECORDS SUMMARY | 2024-06-18 17:37 | XMS_ITS | Encounter Summary ---
Author Organization [employer] Address [address] [facility] [address] [place] [address] Care Team Providers Care Waiter/Waitress Counter Name Role Phone Analisa Hansen MD Primary Care Provide r Reason for Visit * Reason Comments Med Refill Encounter Details Date Type Department Care Team ([facility] st Contact Info) Description 02/28/2023 Refill [facility] [address] [place], [place] [phone] Emil Aparicio, DMD [address] [place] [address] Dental caries Social History Tobacco Use Types [...] Telephone Encounter - Emil Aparicio DMD - 02/28/2023 8:02 AM EST Approving, but needs appt for additional refills. documented in this encounter Plan of Treatment Upcoming Encounters Date Type Department Care Team (Late st Contact Info) Description 06/25/2024 3:15 PM EST Telemedicine [facility] [address] [place] [address] Analisa Hansen MD [address] [place] [address] 11/06/2024 1:00 PM EDT Office Visit [facility] [address] [place] [address] Devon Victoriaaris [address] [place] [phone] documented as of this encounter Visit Diagnoses Diagnosis Dental caries Unspecified dental caries documented in this encounter Additional Health Concerns Assessment Noted Time PHQ-9 Depression Total Score: 12 023 11:55 AM EDT documented as of this encounter Care Teams Waiter/Waitress Counter Relationship Specialty Start Date End Date Analisa Hansen MD [address] [place] [phone] PCP - General Family Medicine 03/07/19 documented as of this encounter
--- OUTSIDE RECORDS SUMMARY | 2024-06-18 17:37 | XMS_ITS | Encounter Summary ---
Author Organization [employer] Address [address] [facility] [address] [place] [address] Care Team Providers Care Quality Assurance Monitor Final Name Role Phone Analisa Hansen MD Primary Care Provide r Reason for Visit * Reason Comments Med Change Request Encounter Details Date Type Department Care Team ([facility] Contact Info) Description 05/09/2024 Refill [facility] [address] [place], [place] [phone] Analisa Hansen MD [address] [place], [place] [phone] Class 2 severe obesity with serious comorbidity [...] Info) Description 06/25/2024 3:15 PM EST Telemedicine [facility] [address] [place] [phone] Analisa Hansen MD [address] [place] [address] 11/06/2024 1:00 PM EDT Office Visit [facility] ADULT DENTAL [address] [place] [address] [phone] Devon Victoriaaris [address] [place] [address] documented as of this encounter Visit Diagnoses Diagnosis Class 2 severe obesity with serious comorbidity and body mass index (BMI) of 38.0 to 38.9 in adult, unspecified obesity type (CMS/HCC) documented in this encounter Additional Health Concerns Assessment Noted Time PHQ-9 Depression Total Score: 0 05/23/19 24 11:05 AM EST documented as of this encounter Care Teams Quality Assurance Monitor Final Relationship Specialty Start Date End Date Analisa Hansen MD [address] [place] [phone] PCP - General Family Medicine 03/07/19 documented as of this encounter
--- OUTSIDE RECORDS SUMMARY | 2024-06-18 17:37 | XMS_ITS | Encounter Summary ---
Author Organization [employer] Address [address] [facility] [address] 7[address] [place] [address] Care Team Providers Care Roller Printer Name Role Phone Analisa Hansen MD Primary Care Provide r Reason for Visit * Reason Comments Med Change Request Encounter Details Date Type Department Care Team ([facility] Contact Info) Description 05/27/2024 Refill [facility] [address] [place], [place] [phone] Analisa Hansen MD [address] [place], [place] [phone] Class 2 severe obesity with serious comorbidity [...] Info) Description 06/25/2024 3:15 PM EST Telemedicine [facility] [address] [place] [phone] Analisa Hansen MD [address] [place] [phone] 11/06/2024 1:00 PM EDT Office Visit [facility] ADULT DENTAL [address] [place] [address] [phone] Devon Victoriaaris [address] [place] [address] documented as of this encounter Visit Diagnoses Diagnosis Class 2 severe obesity with serious comorbidity and body mass index (BMI) of 38.0 to 38.9 in adult, unspecified obesity type (CMS/HCC) documented in this encounter Additional Health Concerns Assessment Noted Time PHQ-9 Depression Total Score: 0 05/23/19 24 11:05 AM EST documented as of this encounter Care Teams Roller Printer Relationship Specialty Start Date End Date Analisa Hansen MD [address] [place] [phone] PCP - General Family Medicine 03/07/19 documented as of this encounter
--- OUTSIDE RECORDS SUMMARY | 2024-06-18 17:37 | XMS_ITS | Clinical Summary ---
Author Organization [employer] Address [address] [place] [address] Care Team Providers Care Software Team Leader Name Role Phone Analisa Hansen MD Primary Care Provide r Allergies No known active allergies Medications buPROPion (Wellbutrin) 75 MG tablet Take 75 mg by mouth in the morning. 09/10/19 23 Active citalopram (CeleXA) 10 MG tablet TAKE 1 TABLET BY MOUTH EVERY DAY IN THE MORNING DIRECTED 09/05/19 23 Active loratadine (Claritin) 10 MG tablet TAKE 1 TABLET BY MOUTH DAILY FOR ALLERGIC RHINITIS 09/06/19 23 Active omega-3 (Fish Oil) 1000 MG capsuleIndicati ons:Dyslipidemi a TAKE 1 CAPSULE (500 MG) BY MOUTH IN THE MORNING. 60 capsule 3 08/22/19 24 Active D3-1000 25 MCG (1000 UT) capsule TAKE 1 CAPSULE BY MOUTH EVERY DAY 90 capsule 1 12/07/19 24 Active Sod Fluoride-Potass ium Nitrate 1.1-5 % paste [place] teeth for 2 minutes, morning and night. Spit, do not rinse. Do not eat or drink anything for 30 minutes following brushing. 112 g 3 01/31/20 24 Active Diclofenac Sodium 1 % gel APPLY 1 INCH TOPICALLY IF NEEDED IN THE MORNING AND AT BEDTIME FOR PAIN 100 g 02/22/20 24 Active pravastatin (Pravachol) 40 MG tabletIndicatio ns:Essential hypertension TAKE 1 TABLET (40 MG) BY MOUTH ONCE PER DAY. 90 tablet 1 02/26/20 24 025 Active Tirzepatide-Surjit ght Management (Zepbound) 2.5 MG/0.5ML solution auto-injectorIn dications:Class 2 severe obesity with serious comorbidity and body mass index (BMI) of 38.0 to 38.9 in adult, unspecified obesity type (CMS/HCC) Inject 0.5 mL (2.5 mg) under the skin 1 (one) time per week. 0.5 mL 05/15/19 Active fluticasone (Flonase Allergy Relief) 50 MCG/ACT nasal spray Administer 2 sprays into affected nostril(s) at bed time. 06/29/19 Active clonazePAM (KlonoPIN) 2 MG tablet Take 1 tablet by mouth if needed in the morning and at bedtime. Active propranolol LA (Inderal LA) 120 MG 24 hr capsule Take 1 capsule by mouth Once per day. 05/14/19 Active Blood Pressure kit 1 Units Once per day. 1 kit 05/22/19 Active guaiFENesin (Mucinex) 600 MG 12 hr tabletIndicatio ns:Acute cough Take 2 tablets (1,200 mg) by mouth 2 times daily. Do not crush, chew, or split. 120 tablet 11 05/22/19 25 026 Active rOPINIRole (Requip) 0.25 MG tabletIndicatio ns:Restless Leg Syndrome 0.25 mg once daily 1 to 3 hours before bedtime. Dose may be increased after 2 days to 0.5 mg once daily, and after 7 days to 1 mg once daily. 90 tablet 09/08/19 23 025 Discontinued(M ed list cleanup (will not trigger notification to Pharmacy)) lisinopril 5 MG tabletIndicatio ns:Essential hypertension TAKE 1 TABLET BY MOUTH EVERY DAY IN THE MORNING 90 tablet 3 07/24/19 24 025 Discontinued(S top taking at discharge) cyclobenzaprine (Flexeril) 10 MG tablet TAKE 1 TABLET BY MOUTH THREE TIMES A DAY NEEDED 60 tablet 09/11/19 24 025 Discontinued(M ed list cleanup (will not trigger notification to Pharmacy)) SUMAtriptan (Imitrex) 25 MG tabletIndicatio ns:Intractable cluster headache syndrome, unspecified chronicity pattern Take 1 tablet (25 mg) by mouth 1 (one) time if needed for migraine for up to 9 doses. May repeat dose once in 2 hours if no relief. Do not exceed 2 doses in 24 hours. 9 tablet 11/21/19 24 025 Discontinued(M ed list cleanup (will not trigger notification to Pharmacy)) Active Problems Problem Noted Date Diagnosed Date Acute cough 05/22/2024 Assessment & Plan (05/22/2024 12:07 PM EST): Cough sx are improving, sx likely d/t post inflammation after URI Will send mucinex for cough suppression Pt may RTC if symptoms worsen or do not improve. Tachycardia 05/22/2024 Assessment & Plan (05/22/2024 12:04 PM EST): Pulse wnl today 88bpm Pt will continue to not take propranolol due to side effects Pt will continue to check pulse at home and will call office if it is greater than 105 Class 2 severe obesity due t o excess calories with serious comorbidity and body mass index (BMI) of 36.0 to 36.9 in adult 05/08/2024 Assessment & Plan (05/08/2024 4:08 PM EST): Today extensive discussion was done about life style modifications I advise healthy diet (low calorie) and cardiovascular exercise I will prescribe zepbound today Neck pain 05/08/2024 Chronic left shoulder pain 05/08/2024 Back strain 04/08/2024 Dental calculus 01/31/2024 Dental plaque on multiple teeth 04/18/2023 Acute gingival inflammation 04/18/2023 Gingival bleeding 04/18/2023 Colon cancer screening 01/25/2023 Shortness of breath 11/29/2022 Numbness of hand 09/07/2022 Mood disorder 09/07/2022 Assessment & Plan (05/08/2024 4:09 PM EST): Stable c/w same interventions Gastroesophageal reflux disease without esophagi tis 09/07/2022 Assessment & Plan (10/26/2022 11:10 AM EDT): I advise patient to avoid NSAIDs, spicy and acid food, I advise to eat at the same time every day, I advise to elevate the head of the bed and take medications as prescribe Essential hypertension 09/07/2022 Assessment & Plan (05/22/2024 12:06 PM EST): BP at goal of <140/90 today Pt will continue not to take propranolol d/t unwanted SE Will send BP monitor to pharmacy so patient can take daily Bps, instructed pt to call if BP consistently >140/90 Assessment & Plan (05/08/2024 4:10 PM EST): I advised: - Aerobic exercise to reduce BP. Initial goal of 30 min walk 3-5x/week. Increase as tolerated. - low-sodium diet (goal: <2g/day) and heart healthy diet such as DASH to reduce BP and prevent ASCVD. - Home BP monitoring 1-2 x day with goal of <140/90. - Seek immediate medical attention for chest pain, palpitations, SOB, syncope, or sudden changes in mental status. - Do not change or discontinue current prescriptions without first consulting health care provider Assessment & Plan (04/08/2024 10:48 AM EST): BP not at goal in clinic 04/08/24, pt reports home readings WNL, suspect due to not having taken medication today. Recommended: - Aerobic exercise to reduce BP. Initial goal of 30 min walk 3-5x/week. Increase as tolerated. - low-sodium diet (goal: <2g/day) and heart healthy diet such as DASH to reduce BP and prevent ASCVD. - Home BP monitoring 1-2 x day with goal of <140/90. - Seek immediate medical attention for chest pain, palpitations, SOB, syncope, or sudden changes in mental status. - Do not change or discontinue current prescriptions without first consulting health care provider Assessment & Plan (11/21/2023 5:03 PM EDT): - Aerobic exercise to reduce BP. Initial goal of 30 min walk 3-5x/week. Increase as tolerated. - low-sodium diet (goal: <2g/day) and heart healthy diet such as DASH to reduce BP and prevent ASCVD. - Home BP monitoring 1-2 x day with goal of <140/90. - Seek immediate medical attention for chest pain, palpitations, SOB, syncope, or sudden changes in mental status. - Do not change or discontinue current prescriptions without first consulting health care provider Assessment & Plan (08/22/2023 3:33 PM EDT): - Aerobic exercise to reduce BP. Initial goal of 30 min walk 3-5x/week. Increase as tolerated. - low-sodium diet (goal: <2g/day) and heart healthy diet such as DASH to reduce BP and prevent ASCVD. - Home BP monitoring 1-2 x day with goal of <140/90. - Seek immediate medical attention for chest pain, palpitations, SOB, syncope, or sudden changes in mental status. - Do not change or discontinue current prescriptions without first consulting health care provider Assessment & Plan (05/24/2023 11:32 AM EST): Maintenance: BMP: up to date Lipid Panel: up to date ASCVD Risk: patient with high risk told me he tried a statin before but was discontinue due to elevated LFTs, I decided today to put him on pravastatin and I will recheck LFTs on next appointment -I advise patient not to miss any dose for his blood pressure medication - Aerobic exercise to reduce BP. Initial goal of 30 min walk 3-5x/week. Increase as tolerated. - low-sodium diet (goal: <2g/day) and heart healthy diet such as DASH to reduce BP and prevent ASCVD. - Home BP monitoring 1-2 x day with goal of <140/90. - Seek immediate medical attention for chest pain, palpitations, SOB, syncope, or sudden changes in mental status. - Do not change or discontinue current prescriptions without first consulting health care provider Assessment & Plan (01/25/2023 9:55 AM EDT): Patient has not being taking his medication for the past 2 days, I advise not to miss any dose of his medication Maintenance: BMP: ordered Lipid Panel:ordered ASCVD Risk: Calculate pending updated labs - Aerobic exercise to reduce BP. Initial goal of 30 min walk 3-5x/week. Increase as tolerated. - low-sodium diet (goal: <2g/day) and heart healthy diet such as DASH to reduce BP and prevent ASCVD. - Home BP monitoring 1-2 x day with goal of <140/90. - Seek immediate medical attention for chest pain, palpitations, SOB, syncope, or sudden changes in mental status. - Do not change or discontinue current prescriptions without first consulting health care provider Assessment & Plan (10/26/2022 11:11 AM EDT): Patient forgot to take his medication for the past 2 days I advise not to miss any dose and low Na diet Dyslipidemia 09/07/2022 Assessment & Plan (05/24/2023 11:33 AM EST): Today extensive discussion was done about life style modifications I advise healthy diet (low calorie) and cardiovascular exercise pravastatin and fish oil was started today Dizziness 09/07/2022 Chronic pain of both shoulders 09/07/2022 Skin tag 09/07/2022 Class 2 obesity due to exces s calories without serious comorbidity with body mass index (BMI) of 35.0 to 35.9 in adult 09/07/2022 Assessment & Plan (08/22/2023 3:34 PM EDT): Today extensive discussion was done about life style modifications I advise healthy diet (low calorie) and cardiovascular exercise Patient will be refer to security sme Assessment & Plan (10/26/2022 11:10 AM EDT): Today extensive discussion was done about life style modifications I advise healthy diet (low calorie) and cardiovascular exercise Restless legs syndrome (RLS) 09/07/2022 Lumbar spondylosis 06/04/2018 Assessment & Plan (05/08/2024 4:09 PM EST): Start PT report back after finishing sessions Assessment & Plan (04/08/2024 10:52 AM EST): Chronic recurring back pain. - has tried PT, acupuncture and exercise. - has some relief with Naproxen and muscle relaxer's - recommended slow stretching, heat therapy, weight loss and long showers. - pt agreed to try PT again, referred to PT 04/08/24 Assessment & Plan (11/21/2023 5:02 PM EDT): I advise weight reduction, I advise patient for possible referral to bariatric specialist I advise to come to [facility] when pain is present, also follow pain management instructions and do appointment with them when he has pain Assessment & Plan (08/22/2023 3:33 PM EDT): Apply heat on affected area Start medications that where recently prescribed Awaiting for MRI results I decided to refer him to pain management Assessment & Plan (08/21/2023 9:36 AM EDT): - R/o herniated disk, not improving with PT. Will order MRI of the lumbar spine and will mostly likely send pt to pain clinic. - Recommended to come to walk-in acupuncture clinic. - Use Diclofenac gel to affected area x 1 week + Tylenol/Flexeril BID PRN pain. - f/u with PCP PRN. Assessment & Plan (09/07/2022 3:59 PM EDT): Apply heat on affected area XRAY ordered and PT referral RTC 2 months Obesity (BMI 30-39.9) 03/01/2018 Postcalcaneal bursitis 10/03/2012 Mixed anxiety and depressive disorder 07/02/2012 Assessment & Plan (09/07/2022 3:54 PM EDT): Patient follow with therapist ans psychiatrist his medications are prescribed by specialist Hypertriglyceridemia 07/02/2012 Impaired fasting glucose 07/02/2012 Obstructive sleep apnea syndrome 11/18/2011 Assessment & Plan (01/25/2023 9:54 AM EDT): Patient reports he uses his CPAP every night I advise weight reduction Encounters Date Type Department Care Team Description 05/29/2024 Refill [facility] MEDICINE [address] [place] [address] Analisa Hansen MD Class 2 severe obesity with serious comorbidity and body mass index (BMI) of 38.0 to 38.9 in adult, unspecified obesity type ([facility]) 05/27/2024 Refill [facility] MEDICINE [address] [facility] [place] [address] Analisa Hansen MD Class 2 severe obesity with serious comorbidity and body mass index (BMI) of 38.0 to 38.9 in adult, unspecified obesity type ([facility]) 05/22/2024 10:30 AM EST Office Visit [facility] [address] [facility] [place] [address] Bright, Alexxis, SOFTWARE TESTING SPECIALIST Acute cough (Primary Dx); Essential hypertension; Tachycardia 05/20/2024 Telephone [facility] MEDICINE [address] [place] [address] Analisa Hansen MD ER Follow-up 05/17/2024 Telephone [facility] MEDICINE [address] [place] [address] Svitlana Ernst, VICKI HDF 05/15/2024 Telephone [facility] MEDICINE [address] [place] [address] Analisa Hansen MD Prior Authorization (CCA PA Request: Lavell) 05/14/2024 Refill [facility] [address] [place] [address] Analisa Hansen MD Class 2 severe obesity with serious comorbidity and body mass index (BMI) of 38.0 to 38.9 in adult, unspecified obesity type ([facility]) 05/13/2024 Orders Only GENERIC EXTERNAL DATA DEPARTMENT Provider, Generic External Data 05/09/2024 Refill [facility] MEDICINE [address] [place] [address] Analisa Hansen MD Class 2 severe obesity with serious comorbidity and body mass index (BMI) of 38.0 to 38.9 in adult, unspecified obesity type ([facility]) 05/09/2024 Refill [facility] MEDICINE [address] [place] [address] Analisa Hansen MD Class 2 severe obesity with serious comorbidity and body mass index (BMI) of 38.0 to 38.9 in adult, unspecified obesity type ([facility]) 05/09/2024 Refill [facility] [address] [place] [address] Analisa Hansen MD Class 2 severe obesity with serious comorbidity and body mass index (BMI) of 38.0 to 38.9 in adult, unspecified obesity type (CMS/HCC) 05/09/2024 Orders Only [address] [address] Analisa Hansen MD 05/08/2024 3:00 PM EST Office Visit [address] [address] Analisa Hansen MD Class 2 severe obesity due to excess calories with serious comorbidity and body mass index (BMI) of 36.0 to 36.9 in adult (CMS/HCC) (Primary Dx); Dietary counseling; Exercise counseling; Class 2 severe obesity with serious comorbidity and body mass index (BMI) of 38.0 to 38.9 in adult, unspecified obesity type ([facility]/HCC); Mood disorder ([facility]); Neck pain; Chronic left shoulder pain; Lumbar spondylosis; Essential hypertension 05/08/[address] [address] Analisa Hansen MD Class 2 severe obesity with serious comorbidity and body mass index (BMI) of 38.0 to 38.9 in adult, unspecified obesity type ([facility]/HCC) 05/08/2024 Travel 05/03/2024 3:00 PM EST Office Visit [facility] ADULT DENTAL [address] [place] [address] [phone] Loly Victoria Dental plaque on multiple teeth (Primary Dx) 04/29/2024 Patient Outreach [address] [address] Analisa Hansen MD Pre-visit Planning (SDOH screening completed on 11/21/2023) 04/10/2024 Orders Only [address] [address] Analisa Hansen MD Renal cyst, acquired, right (Primary Dx) 04/08/2024 10:30 AM EST Office Visit [address] [address] Cleo White MD Essential hypertension (Primary Dx); Lumbar spondylosis; Back strain, initial encounter 04/08/[address] [phone] Analisa Hansen MD telephone call 04/08/2024 Travel 04/08/[address] [phone] Analisa Hansen MD Nurse Triage 04/06/2024 Refill [facility] [address] [place], [place] [phone] Analisa Hansen MD Dyslipidemia from Last 3 Months Immunizations Name Administration Dates Next Due Influenza Injectable Quadriv alant Preservative Free IIV4 MDCK 05/16/2018 Influenza injectable quadriv alent IIV4 with preservative 01/06/2017 Influenza injectable quadriv alent preservative free 05/23/2023,03/03/2021,01/09/2020,2019 Influenza, IIV3, injectable 02/05/2014, 1 Influenza, Split (incl. arnulfo fied surface antigen) 02/27/2013 TD (adult), 2 Lf tetanus tox oid, preservative free, adsorbed 12/11/2008 Tdap 02/05/2014 Social History Tobacco Use Types Packs/Day Years Used Date Smoking Tobacco: Never Passive Smoke Exposure: Never Smokeless Tobacco: Never Tobacco Cessation:Counseling Given: Not Answered Alcohol Use Standard Drinks/Week Comments Never 0 [...] Orientation Straight 02/21/2022 10 :17 AM EDT Last Filed Vital Signs Vital Sign Reading [...] Mass Index 37.25 05/22/2024 10:28 AM EST Plan of Treatment Upcoming Encounters Date Type Department Care Team (Late st Contact Info) Description 06/25/2024 3:15 PM EST Telemedicine [facility] MEDICINE [address] [place] [address] Analisa Hansen MD [address] [place] [address] 11/06/2024 1:00 PM EDT Office Visit [facility] ADULT DENTAL [address] [place] [address] Loly [place] [facility] [place] [address] Health Maintenance Due Date Last Done Comments CT Colonography 1975 Colonoscopy 1977 FIT 1977 FOBT 1975 Sigmoidoscopy 1975 Family Planning (PISQ) 1992 Hepatitis B Vaccines (1 of 3 - 19+ 3-dose series) 1996 COVID-19 Vaccine ( season) 2023 02/11/2022, 04/01/2021, 08/01/2020 Influenza Vaccine (#1) 2023 , 03/03/2021, 01/09/2020, Additional history exists DTaP/Tdap/Td Vaccines (2 - Td or Tdap) 02/06/2024 02/05/2014, 12/11/2008 Depression Screening 05/23/2024 05/23/2023, 05/23/19 Dental Oral Exam 08/01/2024 01/31/2024, 09/12/2022 Dental Prophylaxis 11/01/2024 05/03/2024, 1 , 04/18/2023, Additional history exists Alcohol/Substance Use Screening 11/20/2024 11/21/2023 SDOH Screening 11/20/2024 11/21/2023 Dental X-Ray: Bitewings 01/31/2025 01/31/20 24, 09/12/2022, 08/25/2022 Tobacco Screening 05/22/2025 05/22/2024 Dental X-Ray: Full Mouth 09/13/2025 09/12/2022 Colorectal Cancer Screening 02/10/2026 FIT DNA/Cologuard 02/10/2026 02/10/2023 Zoster Vaccines (1 of 2) 10/14/2027 Lipid Panel 11/22/2028 11/23/2023, 08/0 04/2023, 02/08/2023, Additional history exists RSV Patients and Patients Aged 60 years or older (1 - 1-dose 75+ series) 2052 HIV Screening Completed 02/08/2023, 01/17/2020 Hepatitis C Screening Completed 02/08/2023 HIB Vaccines Aged Out No longer eligi ble based on patient's age to complete this topic HPV Vaccines Aged Out No longer eligi ble based on patient's age to complete this topic Hepatitis A Vaccines Aged Out No long er eligible based on patient's age to complete this topic IPV Vaccines Aged Out No longer eligi ble based on patient's age to complete this topic Meningococcal Vaccine Aged Out No clara marta eligible based on patient's age to complete this topic Pneumococcal Vaccine: Pediatrics (0 to 5 Years) and At-Risk Patients (6 to 49) Years) Aged Out No longer eligible based on patient's age to complete this topic RSV under 20 months Aged Out No longe r eligible based on patient's age to complete this topic Rotavirus Vaccines Aged Out No longer eligible based on patient's age to complete this topic Procedures Procedure Name Priority Date/Time Associated Diagnosis Comments TSH W/REFLEX TO FT4 Routine 05/13/2024 9 :59 PM EST B TYPE NATRIURETIC PEPTIDE (BNP) Routine 05/13/2024 9:59 PM EST CTA CHEST PE PROTOCAL Routine 05/13/2024 8:20 PM EST HIGH SENSITIVITY TROPONIN I Routine 05/13/2024 7:14 PM EST D DIMER HIGH SENSITIVITY Routine 05/13/2024 2:56 PM EST HIGH SENSITIVITY TROPONIN I Routine 05/13/2024 2:56 PM EST MAGNESIUM Routine 05/13/2024 2:56 PM EST BASIC METABOLIC PANEL Routine 05/13/2024 2:56 PM EST HEPATIC FUNCTION PANEL Routine 05/13/2024 2:56 PM EST LACTIC ACID Routine 05/13/2024 2:56 PM EST PROTHROMBIN TIME-INR Routine 05/13/2024 2:56 PM EST CBC WITH AUTO DIFFERENTIAL Routine 05/13/2024 2:56 PM EST SARS COV2/INFLUENZA A/B AND RSV RNA QL NAAT Routine 05/13/2024 2:56 PM EST XR CHEST 2 VIEWS Routine 05/13/2024 2:43 PM EST CASE PRESENTATION, DETAILED AND EXTENSIVE TREATMENT PLANNING Routine 05/03/2024 3:00 PM EST Dental plaque on multiple teeth ORAL HYGIENE INSTRUCTIONS Routine 05/03/2024 3:00 PM EST Dental plaque on multiple teeth PROPHYLAXIS - ADULT Routine 05/03/2024 3 :00 PM EST Dental plaque on multiple teeth BITEWINGS - 4 RADIOGRAPHIC IMAGES Routine 01/31/2024 1:00 PM EDT Decalcification of tooth Gingival bleeding Dental plaque on multiple teeth Dental calculus PERIODIC ORAL EVALUATION - ESTABLISHED PATIENT Routine 01/31/2024 1:00 PM EDT LIPID PANEL WITH REFLEX TO DIRECT LDL Routine 11/23/2023 9:36 AM EDT Dyslipidemia LAB COLOGUARD?? COLON CANCER SCREEN Routine 02/10/2023 1:30 PM EDT Colon cancer screening HEPATITIS C AB W/REFL TO HCV RNA, QN, PCR Routine 02/08/2023 8:28 AM EDT Essential hypertension HIV ANTIBODY/ANTIGEN ([place] DPH) Routine 02/08/2023 8:28 AM EDT INTRAORAL - COMPLETE SERIES OF RADIOGRAPHIC IMAGES Routine 09/12/2022 1:00 PM EDT Dental caries from Last 3 Months or Most Recently Relevant to Health Maintenance Results * TSH with Reflex to Free T4 (05/13/2024 9:59 PM EST) TSH reflex Free T4 1.95 0.32 - 4.0 uIU/mL [facility] 05/13/2024 9:59 PM EST 05/13/2024 10:01 PM EST us Generic External Data Provider LAB BLOOD ORDERAB LES Final Result Performing Organization Address [facility] de Phone Number [facility] [address] [place] [address] [phone] * B Type Natriuretic Peptide (BNP) (05/13/2024 9:59 PM EST) B Type Natriuretic Peptide <10 <100 pg/mL [facility] Comment:For those patients w ho are being treated with Natrecor(nesiritide, recombinant BNP), BNP testing should beperformed at least two hours post treatment in order toensure that only endogenous levels of BNP are detected. 05/13/2024 9:59 PM EST 05/13/2024 10:01 PM EST Generic External Data Provider LAB BLOOD ORDERAB LES Final Result Performing Organization Address [facility] de Phone Number [facility] [address] [place] [address] [phone] * CTA Chest PE Protocal (05/13/2024 8:20 PM EST) Anatomical Region Laterality Modality Body, Chest Computed Tomogra phy 05/13/2024 8:20 PM EST Narrative 05/13/2024 8:21 PM EST ? [facility] ?[address] ?[place] [address] ? CT Scan Report ? Signed ? Patient: Efraín Chirag,Boy ? MR#: [id number] ? : 1975 ?Acct:[id number] ? Age/Sex: 48 / M ?ADM Date: 05/13/ ? Loc: HO.ED ? Attending Dr: ? Ordering Physician: Sylvia Jasso SOFTWARE TESTING SPECIALIST ?? Date of Service: 05/13/24 ?? Procedure(s): CT angio chest PE protocol ?? Accession Number(s): [id number] ? cc: Analisa Hansen MD; Sylvia Jasso SOFTWARE TESTING SPECIALIST ? Report Number: ?? [id number]: Total DLP = ??485.00 mGy-cm ? CLINICAL HISTORY: cough, shorntess of breath ? CT angiogram chest/pulmonary arteries with contrast ?? Multiplanar reconstructions and MIPS ? Comparison: None ? Findings: ? No filling defects are noted to suggest pulmonary embolus. ?? Main pulmonary artery normal in caliber. ? Thoracic aorta normal caliber without dissection. ?? Heart size normal. Great vessel origins patent. ?? No coronary calcifications. ? No significant focal parenchymal abnormalities. ?? No significant mediastinal or hilar adenopathy. ?? No free pleural fluid. ? No acute bony abnormality noted. ?? Fatty infiltration of the liver. ? Impression: ? No evidence of pulmonary embolus ? This document has been electronically signed by: Guy Davis MD on ?? 05/13/2024 20:20:28 ? Dictated By: ?Guy Davis MD ? Signed By: ?<Electronically signed by Guy Davis MD in OV> ? 05/13/242020 ? DD/ 2020 ? TD/TT: 05/13/24 2020 ? Shot Polisher: ? Procedure Note Gee, Image - 05/13/[address] [place] [address] [address] Scan Report Signed Patient: Boy Steen MR#: [id number] : 1975Acct:[id number] Age/Sex: 48 / MADM Date: 05/13/24 Loc: .ED Attending Dr: Ordering Physician: Sylvia Jasso CNP Date of Service: 05/13/24 Procedure(s): CT angio chest PE protocol Accession Number(s): [id number] cc: Analisa Hansen MD; Sylvia Jasso SOFTWARE TESTING SPECIALIST Report Number: [id number]: Total DLP = 485.00 mGy-cm CLINICAL HISTORY: cough, shorntess of breath CT angiogram chest/pulmonary arteries with contrast Multiplanar reconstructions and MIPS Comparison: None Findings: No filling defects are noted to suggest pulmonary embolus. Main pulmonary artery normal in caliber. Thoracic aorta normal caliber without dissection. Heart size normal. Great vessel origins patent. No coronary calcifications. No significant focal parenchymal abnormalities. No significant mediastinal or hilar adenopathy. No free pleural fluid. No acute bony abnormality noted. Fatty infiltration of the liver. Impression: No evidence of pulmonary embolus This document has been electronically signed by: Guy Davis MD on 05/13/2024 20:20:28 Dictated By: Guy Davis MD Signed By: <Electronically signed by Guy Davis MD in OV> 05/13/242020 DD/ 19 TD/TT: 05/13/242019 Shot Polisher: [facility] External Provider IMG CT PROCEDURES Final Result * High Sensitivity Troponin I (05/13/2024 7:14 PM EST) Only the most recent of2 resultswithin the time period is included. [facility] TROPONIN I HIGH SENSITIVITY <2.7 <3.5 - 35.0 ng/L [facility] Comment:The Kebede high sens itivity Troponin-I results should beused in conjunction with other diagnostic information suchas ECG, clinical observations and information, and patientsymptoms to aid in the diagnosis of ME. 05/13/2024 7:14 PM EST 05/13/2024 7:18 PM EST Result [facility] Generic External Data Provider LAB BLOOD ORDERAB LES Final Result [facility] [address] [place] [phone] * D Dimer High Sensitivity (05/13/2024 2:56 PM EST) [facility] D Dimer High Sensitivity <150 NG/ML [facility] Comment:D-DIMER HS REFERENCE RANGENote: Our assay reports D-Dimer Units (D- DU).The cut-off value for venous thromboembolic (VTE) disease is230 ng/mL. This value has a very high negative predictivevalue when the patient has a low to moderate clinicalprobability of VTE.The upper limit of normal is 243 ng/mL. 05/13/2024 2:56 PM EST 05/13/2024 3:05 PM EST Generic External Data Provider LAB BLOOD ORDERAB LES Final Result Performing Organization Address [facility] Co de Phone Number [facility] [address] [place] [phone] * SARS-CoV-2 RNA, Influenza A/B, and RSV RNA, Ql NAAT (05/13/2024 2:56 PM EST) Pathologist [facility] Influenza A PCR NEGATIVE Negative [facility] Influenza B PCR NEGATIVE Negative [facility] Resp Syncy Virus RNA Qual PCR NEGATIVE Negative [facility] SARS COV2 PCR NEGATIVE Negative [facility] Comment:All test results mus t be correlated with clinical findings.Negative results do not preclude SARS-CoV2, influenza Avirus, influenza B virus and/or RSV infectionand should not be used as the sole basis for treatment orother patient management decisions. Negative results must becombined with clinical observations, patient history, andepidemiological information.This test has not been evaluated for monitoring treatment ofinfection.This test has been authorized by the FDA under an EmergencyUse Authorization (EUA) for use by authorized laboratories.Testing performed on the enymotion GeneXpert utilizingreal-time RT-PCR.All SARS CoV2 and positive influenza A/B results arereported to [facility]. 05/13/2024 2:56 PM EST 05/13/2024 3:05 PM EST Generic External Data Provider LAB MICROBIOLOGY - GENERAL ORDERABLES Final Result Performing Organization Address [facility] Co de Phone Number [facility] [address] [place] [phone] * (ABNORMAL) CBC auto differential (05/13/2024 2:56 PM EST) Pathologist [facility] White Blood Count 8.8 4.8 - 10.8 X10*3/uL [facility] Red Blood Count 5.37 4.60 - 5.80 X10*6/uL [facility] Hemoglobin 15.5 14.0 - 18.0 g/dl [facility] Hematocrit 46.1 42.0 - 52.0 % [facility] Mean Corpuscular Volume 85.8 80.0 - 98.0 fL [facility] Mean Corpuscular Hemoglobin 28.9 27.0 - 33.0 pg [facility] Mean Corpuscular HGB Conc 33.6 31.0 - 36.0 g/dl [facility] Red Cell Distribution Width 13.3 11.0 - 16.0 % [facility] Platelet Count 237 160 - 400 X10*3/uL [facility] Mean Platelet Volume 10.0 9.4 - 12.4 fL [facility] Neutrophils Percent Auto 79.0(H) 45 - 73 % [facility] Imm Gran Pct Auto 0.8(H) 0.0 - 0.4 % [facility] Lymphocytes Percent Auto 9.7(L) 20 - 40 % [facility] Monocytes Percent Auto 7.8 2 - 11 % [facility] Eosinophils Percent Auto 2.2 0 - 4 % [facility] Basophils Percent Auto 0.5 0 - 2 % [facility] NRBC Pct Auto 0.0 0.0 - 0.2 /100WBC [facility] Neutrophils Absolute Auto 6.9 2.0 - 8.3 x10*3/uL [facility] Imm Gran Abs Auto 0.07(H) 0.00 - 0.03 X10*3/uL [facility] Lymphocytes Absolute Auto 0.9(L) 1.2 - 4.9 X10*3/uL [facility] Monocytes Absolute Auto 0.7 0.1 - 1.2 X10*3/uL [facility] Eosinophils Absolute Auto 0.2 0.0 - 0.4 X10*3/uL [facility] Basophils Absolute Auto 0.0 0.0 - 0.2 X10*3/uL [facility] NRBC Abs Auto 0.000 0.0 - 0.012 X10*3/uL [facility] 05/13/2024 2:56 PM EST 05/13/2024 3:05 PM EST us Generic External Data Provider LAB BLOOD ORDERAB LES Final Result Performing Organization Address [facility]/ZIP Co de Phone Number [facility] [address] [place] [phone] * Prothrombin Time-INR (05/13/2024 2:56 PM EST) Prothrombin Time 11.8 10.9 - 12.4 SEC [facility] INTERNATIONAL NORM RATIO 1.0 0.9 - 1.1 [facility] Comment:INTERNATIONAL NORMAL IZED RATIO (INR) REFERENCE RANGES Reference RangeFor patients not on anticoagulant therapy: 0.9 - 1.1INR ranges for oral anticoagulanttherapy:For prevention and treatment of venous thrombosis and pulmonary embolism: 2.0 - 3.0For acute myocardial infarction with aspirin therapy: 2.0 - 3.0For acute myocardial infarction without aspirin therapy: 3.0 - 4.0For patients with mechanical prosthetic heart valves: 2.5 - 3.5 05/13/2024 2:56 PM EST 05/13/2024 3:05 PM EST Generic External Data Provider LAB BLOOD ORDERAB LES Final Result Performing Organization Address [facility] Co de Phone Number [facility] [address] [place] [phone] * Magnesium (05/13/2024 2:56 PM EST) Pathologist [facility] Magnesium 1.8 1.6 - 2.6 mg/dL [facility] 05/13/2024 2:56 PM EST 05/13/2024 3:05 PM EST Generic External Data Provider LAB BLOOD ORDERAB LES Final Result Performing Organization Address [facility] Co de Phone Number [facility] [address] [place] [phone] * Lactic Acid (05/13/2024 2:56 PM EST) Lactic Acid 1.3 0.5 - 2.0 mmol/L [facility] 05/13/2024 2:56 PM EST 05/13/2024 3:02 PM EST Generic External Data Provider LAB BLOOD ORDERAB LES Final Result Performing Organization Address [facility] Co de Phone Number [facility] [address] [place] [phone] * (ABNORMAL) Hepatic Function Panel (05/13/2024 2:56 PM EST) Pathologist [facility] Bilirubin, Total 0.7 0.0 - 1.0 mg/dL [facility] Bilirubin, Direct 0.2 0.0 - 0.5 mg/dL [facility] Aspartate Amino Transferase 36 5 - 37 U/L [facility] Alanine Aminotransferase 54(H) 0 - 40 U/L [facility] Total Protein 8.3(H) 6.5 - 8.0 g/dL [facility] Albumin Level 4.2 3.5 - 5.0 g/dL [facility] Alkaline Phosphatase 100 39 - 117 U/L [facility] 05/13/2024 2:56 PM EST 05/13/2024 3:05 PM EST Generic External Data Provider LAB BLOOD ORDERAB LES Final Result Performing Organization Address [facility] Co de Phone Number [facility] [address] [place] [phone] * Basic Metabolic Panel (05/13/2024 2:56 PM EST) Sodium 137 135 - 145 mmol/L [facility] Potassium 4.1 3.3 - 5.1 mmol/L [facility] Chloride 104 96 - 108 mmol/L [facility] Carbon Dioxide 24 22 - 29 mmol/L [facility] Anion Gap 13 12 - 20 [facility] Urea Nitrogen (BUN) 12 9 - 16 mg/dL [facility] Creatinine, Serum 1.00 0.5 - 1.4 mg/dL [facility] Creatinine Clr Calc Pharmacy 112.7 [facility] Comment:eGFR (calculated fro m the MDRD study equation) and eCrCl(calculated from the Cockcroft-Gault equation) are based ondifferent parameters and may not yield comparable results.If eCrCl result is absurd, please check patient'sheight/weight. Estimated Glomerular Filt Rate >60 [facility] Comment:Chronic Kidney Disea se: Estimated GFR < 60 mL/min/1.01w3Kgmtqa Kidney Disease: Estimated GFR < 15 mL/min/1.73m2 Glucose 91 60 - 115 mg/dL [facility] Calcium 9.6 8.4 - 10.2 mg/dL [facility] 05/13/2024 2:56 PM EST 05/13/2024 3:05 PM EST us Generic External Data Provider LAB BLOOD ORDERAB LES Final Result Performing Organization Address City/State/[facility] Co de Phone Number [facility] [address] [place] [phone] * XR Chest 2 Views (05/13/2024 2:43 PM EST) Anatomical Region Laterality Modality Chest Radiographic Yesika ging 05/13/2024 2:43 PM EST Narrative 05/13/2024 3:32 PM EST ? [facility] ?[address] ?[place] [address] ?XRay Report ? Signed ? Patient: Efraín Chirag,Boy ? MR#: [id number] ? : 1975 ?Acct:[id number] ? Age/Sex: 48 / M ?ADM Date: 01/20/25 ? Loc: HO.ED ? Attending Dr: ? Ordering Physician: Nyla Guthrie ?? Date of Service: 05/13/24 ?? Procedure(s): XR chest 2V ?? Accession Number(s): [id number] ? cc: Analisa Hansen MD; Nyla Guthrie ? EXAMINATION: ??XR CHEST 2 VIEWS ? HISTORY: SOB, cough ? COMPARISON: Comparison is made with the prior examination dated ?? 02/17/2020. ? FINDINGS: ??PA and lateral views of the chest are submitted. There is ?? linear scarring in the lingula. The right lung is clear. ??There is no ?? pleural effusion, pneumothorax, or pulmonary vascular congestion. ??The ?? heart is normal in size. ??The bones are intact. ? XR/XR chest 2V ?? IMPRESSION: ?? Lingular scarring. ? Electronically signed by: ??Nahun Oseguera MD ??05/13/2024 03:29 PM EST ?? RP ? Dictated By: ?Nahun Oseguera MD ? Signed By: ?<Electronically signed by Nahun Oseguera MD in OV> ?05/13/24 1529 ? DD/ 1443 ? TD/TT: 05/13/24 1518 ? Shot Polisher: ? Procedure Note Donrakel, Image - 05/13/2024 [place] [address] XRay Report Signed Patient: Boy Steen MR#: [id number] : 1975Acct:[id number] Age/Sex: 48 / MADM Date: 05/13/24 Loc: HO.ED Attending Dr: Ordering Physician: Nyla Guthrie Date of Service: 05/13/24 Procedure(s): XR chest 2V Accession Number(s): [id number] cc: Analisa Hansen MD; Nyla Guthrie EXAMINATION: XR CHEST 2 VIEWS HISTORY: SOB, cough COMPARISON: Comparison is made with the prior examination dated 02/17/2020. FINDINGS: PA and lateral views of the chest are submitted. There is linear scarring in the lingula. The right lung is clear. There is no pleural effusion, pneumothorax, or pulmonary vascular congestion. The heart is normal in size. The bones are intact. XR/XR chest 2V IMPRESSION: Lingular scarring. Electronically signed by: Nahun Oseguera MD 05/13/2024 03:29 PM EST Dictated By: Nahun Oseguera MD Signed By: <Electronically signed by Nahun Oseguera MD in OV> 05/13/24 1529 DD/ 1443 TD/TT: 05/13/24 1518 Shot Polisher: us [facility] External Provider IMG XR PROCEDURES Final Result * (ABNORMAL) Lipid Panel with Reflex to Direct LDL (11/23/2023 9:36 AM EDT) Triglycerides 402(H) <150 mg/dL [facility] Comment:Desirable Triglyceri de: less than 150 mg/dLBorderline High Triglyceride 150-199 mg/dLHigh Triglyceride: 200-499 mg/dLVery High Triglyceride: greater than or equal to 5OO mg/dL Cholesterol 132 <200 mg/dL [facility] Comment:Desirable Cholestero l: less than 200 mg/dLBorderline High Cholesterol: 200-239 mg/dLHigh Cholesterol: greater than 239 mg/dL LDL Cholesterol Calculated TNP <100 mg/dL [facility] Comment:Unable to calculate the LDL. The formula of Friedwald,Garcia, and Sabra is only valid if the triglycerides areless than 400 mg/dl. HDL Cholesterol 21(L) >40 mg/dL [facility] Comment:Desirable HDL: great er than 40 mg/dL Note: This HDL assay may give artificially low results in patients with liver disease. Blood 11/23/2023 9:36 AM EDT 11/23/2023 11:03 AM EDT us Analisa Cline MD LAB BLOOD ORDERABLES Final Result [facility] [address] [place], [place] [phone] * Cologuard?? colon cancer screening (02/10/2023 1:30 PM EDT) Cologuard Result Negative Negative 02/19/20 11:27 AM EDT [facility] (CLIA #:[id number]) Comment: NEGATIVE TEST RESULT. A negative Cologuard result indicates a low likelihood that a colorectal cancer (CRC) or advanced adenoma (adenomatous polyps with more advanced pre-malignant features) ??is present. The chance that a person with a negative Cologuard test has a colorectal cancer is less than 1 in 1500 (negative predictive value >99.9%) or has an ??advanced adenoma is less than ??5.3% (negative predictive value 94.7%). These data are based on a prospective cross-sectional study of 10,000 individuals at average risk for colorectal cancer who were screened with both Cologuard and colonoscopy. (Jimbo Bermudez al, N Engl J Med 2014;370(14):1286- 1297) The normal value (reference range) for this assay is negative. COLOGUARD RE-SCREENING RECOMMENDATION: Periodic colorectal cancer screening is an important part of preventive healthcare for asymptomatic individuals at average risk for colorectal cancer. ??Following a negative Cologuard result, the [place] [employer] and U.S. Multi-Society Task Force screening guidelines recommend a Cologuard re-screening interval of 3 years. References: [place] [employer] Guideline for Colorectal Cancer Screening: https://www.cancer.org/cancer/odvzj-rzmhxq-ywgahn/xmwhxxkvw-vwxtokqaw-iclsays/ac s-rec ommendations.html.; Kirill PENA, Chandana MEDEIROS, Edith CastilloK, Colorectal Cancer Screening: Recommendations for Physicians and Patients from the U.S. Multi-Society Task Force on Colorectal Cancer Screening , Am J Gastroenterology 2017; 112:9203-7312. TEST DESCRIPTION: Composite algorithmic analysis of stool DNA-biomarkers with hemoglobin immunoassay. ?? Quantitative values of individual biomarkers are not reportable and are not associated with individual biomarker result reference ranges. Cologuard is intended for colorectal cancer screening of adults of either sex, 45 years or older, who are at average-risk for colorectal cancer (CRC). Cologuard has been approved for use by the U.S. FDA. The performance of Cologuard was established in a cross sectional study of average-risk adults aged 50-84. Cologuard performance in patients ages 45 to 49 years was estimated by sub-group analysis of near-age groups. Colonoscopies performed for a positive result may find as the most clinically significant lesion: colorectal cancer [4.0%], advanced adenoma (including sessile serrated polyps greater than or equal to 1cm diameter) [20%] or non- advanced adenoma [31%]; or no colorectal neoplasia [45%]. These estimates are derived from a prospective cross-sectional screening study of 10,000 individuals at average risk for colorectal cancer who were screened with both Cologuard and colonoscopy. (Jimbo Antonio et al, N Engl J Med 2014;370(14):2519-9892.) Cologuard may produce a false negative or false positive result (no colorectal cancer or precancerous polyp present at colonoscopy follow up). A negative Cologuard test result does not guarantee the absence of CRC or advanced adenoma (pre-cancer). The current Cologuard screening interval is every 3 years. ([place] [employer] and U.S. Multi-Society Task Force). Cologuard performance data in a 10,000 patient pivotal study using colonoscopy as the reference method can be accessed at the following location: www.[employer]/results. Additional description of the Cologuard test process, warnings and precautions can be found at www.[employer].com. Stool specimen (specimen) 02/10/2023 1:30 PM EDT 02/13/2023 11:32 AM EDT Analisa Cline MD LAB MOLECULAR DIAGNOS TICS ORDERABLES Final Result [facility] (CLIA #:[id number]) [address] [place] [address], * HIV Ab/Ag ([place] [facility]) (02/08/2023 8:28 AM EDT) HIV AB/AG Nonreactive Nonreactive [facility] Comment:HIV-1 p24 Ag and/or HIV-1/HIV-2 Ab not detected.A test result that is nonreactive does not exclude thepossibility of exposure to or infection with HIV-1 and/orHIV-2. Nonreactive results in this assay for individualswith prior exposure to HIV-1 and/or HIV-2 may be due toantigen and antibody levels that are below the limit ofdetection of this assay.The SaaSAssurancenibetter. HIV Ag/Ab Combo assay result andsupplemental assay results should be interpreted inconjunction with the patient's clinical presentation,history and other laboratory results. If the results areinconsistent with clinical evidence, additional testing issuggested to confirm the result. 02/08/2023 8:28 AM EDT 02/08/2023 11:04 AM EDT us Analisa Cline MD LAB BLOOD ORDERABLES Final Result Performing Organization Address [facility]/ZIP Co de Phone Number [facility] [address] [place] [phone] * Hepatitis C Antibody with Reflex to HCV, RNA, Quantitative, Real-Time PCR (02/08/2023 8:28 AM EDT) Hepatitis C Antibody Nonreactive Nonreactive [facility] Comment:Antibodies to HCV no t detected; does not exclude early acuteHCV infection. Blood Venous blood specimen / Unknown 02/08/2023 8:28 AM EDT 02/08/2023 11:04 AM EDT us Analisa Cline MD LAB BLOOD ORDERABLES Final Result Performing Organization Address City/[facility]/ZIP Co de Phone Number [facility] [address] [place] [phone] from Last 3 Months or Most Recently Relevant to Health Maintenance Insurance [facility] Care Teams Software Team Leader Relationship Specialty Start Date End Date Analisa Hansen MD [address] [place] [address] [place] [phone] PCP - General Family Medicine 03/07/19
--- OUTSIDE RECORDS SUMMARY | 2024-06-18 17:37 | XMS_ITS | Encounter Summary ---
Author Organization [employer] Address [address] [facility] [address] [place] [address] Care Team Providers Care Fish Seiner Name Role Phone Analisa Hansen MD Primary Care Provide r Encounter Details Date Type Department Care Team ([facility] Contact Info) Description 08/30/2022 Abstract [facility] ADULT DENTAL [address] [place], [place] [phone] Matt Kaplan, DMD [address] [place] [address] Social History Tobacco Use Types Packs/Day Years Used Date Smoking Tobacco: Never Smokeless Tobacco: Never Alcohol Use Standard Drinks/Week Comments Never 0 (1 standard drink = 0.6 oz pur e alcohol) Sex and Gender Information Value Date Recorded Sex Assigned at Male 02/21/2022 10:17 AM EDT Legal Sex Male 10:17 AM EDT Gender Identity Male 02/21/2022 10:17 AM EDT Sexual Orientation Straight 02/21/2022 10 :17 AM EDT COVID-19 Exposure Response Date Recorded In the last 10 days, have yo u been in contact with someone who was confirmed or suspected to have Coronavirus/COVID-19? No / Unsure 08/25/2022 3:17 PM EDT documented as of this encounter Plan of Treatment Upcoming Encounters Date Type Department Care Team ([facility] Contact Info) Description 06/25/2024 3:15 PM EST Telemedicine [facility] MEDICINE [address] [place], [place] [phone] Analisa Hansen MD [address] [place], [place] [phone] 11/06/2024 1:00 PM EDT Office Visit [facility] ADULT DENTAL [address] [place], [place] [phone] Devon Victoriaaris [address] [place], [place] [phone] documented as of this encounter Visit Diagnoses Not on filedocumented in this encounter Care Teams Fish Seiner Relationship Specialty Start Date End Date Analisa Hansen MD [address] [place], [place] [phone] PCP - General Family Medicine 03/07/19 documented as of this encounter
--- OUTSIDE RECORDS SUMMARY | 2024-06-18 17:37 | XMS_ITS | Encounter Summary ---
Author Organization [employer] Address [address] [facility] [address] [facility] [facility] [address] [place] [address] Care Team Providers Care Clerical Aide Name Role Phone Analisa Hansen MD Primary Care Provide r Encounter Details Date Type Department Care Team ([facility] Contact Info) Description 05/27/2022 Orders Only [facility] MEDICINE [address] [place] [phone] Stephanie Segal FNP [address] [place], [place] [phone] Vitamin D deficiency (Primary Dx) Social History Tobacco Use Types Packs/Day Years [...] suspected to have Coronavirus/COVID-19? No / Unsure 05/18/2022 3:37 PM EST documented as of this encounter Plan of Treatment Upcoming Encounters Date Type Department Care Team (Late Contact Info) Description 06/25/2024 3:15 PM EST Telemedicine [facility] MEDICINE [address] [place] [phone] Analisa Hansen MD [address] [place] [phone] 11/06/2024 1:00 PM EDT Office Visit [facility] ADULT DENTAL [address] [place], [place] [phone] Loly Victoria [address] [place], [place] [phone] documented as of this encounter Visit Diagnoses Diagnosis Vitamin D deficiency- Primary documented in this encounter Care Teams Clerical Aide Relationship Specialty Start Date End Date Analisa Hansen MD [address] [place] [address] PCP - General Family Medicine 03/07/19 documented as of this encounter
--- OUTSIDE RECORDS SUMMARY | 2024-06-18 17:37 | XMS_ITS | Encounter Summary ---
Author Organization [employer] Address [address] 7t [place] [address] Care Team Providers Care Softball Coach Name Role Phone Analisa Hansen MD Primary Care Provide r Reason for Visit * Reason Comments Med Change Request Encounter Details Date Type Department Care Team ([facility] Contact Info) Description 05/29/2024 Refill [facility] [address] [place], [place] [phone] Analisa Hansen MD [address] [place], [place] [phone] Class 2 severe obesity with serious comorbidity [...] Info) Description 06/25/2024 3:15 PM EST Telemedicine [facility] [address] [place] [phone] Analisa Hansen MD [address] [place] [address] 11/06/2024 1:00 PM EDT Office Visit [facility] [address] [place] [address] [phone] Devon Victoriaaris 230 [place] [address] documented as of this encounter Visit Diagnoses Diagnosis Class 2 severe obesity with serious comorbidity and body mass index (BMI) of 38.0 to 38.9 in adult, unspecified obesity type (CMS/HCC) documented in this encounter Additional Health Concerns Assessment Noted Time PHQ-9 Depression Total Score: 0 05/23/19 24 11:05 AM EST documented as of this encounter Care Teams Softball Coach Relationship Specialty Start Date End Date Analisa Hansen MD [address] [place] [phone] PCP - General Family Medicine 03/07/19 documented as of this encounter
--- OUTSIDE RECORDS SUMMARY | 2024-06-18 17:37 | XMS_ITS | Encounter Summary ---
Author Organization [employer] Address [address] [facility] [address] [facility] [address] 7t [place] [address] Care Team Providers Care Clear Coat Sprayer Name Role Phone Analisa Hansen MD Primary Care Provide r Reason for Visit * Reason Comments Med Refill Encounter Details Date Type Department Care Team ([facility] st Contact Info) Description 01/29/2023 Refill [facility] ADULT DENTAL [address] [place] [address] Matt Kaplan, DMD [address] [place] [address] Dental caries Social History Tobacco Use Types Packs/Day Years Used Date Smoking Tobacco: Never Smokeless Tobacco: Never Alcohol Use Standard Drinks/Week Comments Never 0 (1 standard drink = 0.6 oz pur e alcohol) Depression Answer Date Recorded Patient Health Questionnaire-9 Score 12 09/07/2022 Housing Stability Answer Date Recorded What is your housing situation today? I have singh graves 01/29/[address] you li ve. Do you have problems with any of the following? None of the above 01/29/2023 Food Insecurity Answer Date Recorded Within the past 12 months, y ou worried that your food would run out before you got money to buy more: Never True 01/29/2023 Within the past 12 months,th e food you bought just didn't last and you didn't have enough money to get more: Never True 11/2022 Transportation Answer Date Recorded In the past 12 months, has l ack of transportation kept you from medical appts, meetings, work or from getting things needed for daily living? No 01/29/2023 Utilities Answer Date Recorded In the past 12 months, has t he electric, gas, oil or water company threatened to shut off services in your home? No 01/29/2023 Depression Answer Date Recorded Patient Health Questionnaire-2 Score 3 09/07/2022 Sex and Gender Information Value Date Recorded Sex Assigned at Male 02/21/2022 10:17 AM EDT Legal Sex Male 10:17 AM EDT Gender Identity Male 02/21/2022 10:17 AM EDT Sexual Orientation Straight 02/21/2022 10 :17 AM EDT documented as of this encounter Miscellaneous Notes * Telephone Encounter - Emil Aparicio DMD - 01/31/2023 8:09 AM EDT Approving, but needs appt for additional refills. documented in this encounter Plan of Treatment Upcoming Encounters Date Type Department Care Team (Late st Contact Info) Description 06/25/2024 3:15 PM EST Telemedicine [facility] [address] [place] [address] Analisa Hansen MD [address] [place] [address] 11/06/2024 1:00 PM EDT Office Visit [facility] ADULT D[facility] [address] [place] [address] Devon Victoriaaris [address] [place] [address] documented as of this encounter Visit Diagnoses Diagnosis Dental caries Unspecified dental caries documented in this encounter Additional Health Concerns Assessment Noted Time PHQ-9 Depression Total Score: 12 023 11:55 AM EDT documented as of this encounter Care Teams Clear Coat Sprayer Relationship Specialty Start Date End Date Analisa Hansen MD [address] [place] [address] PCP - General Family Medicine 03/07/19 documented as of this encounter
--- OUTSIDE RECORDS SUMMARY | 2024-06-18 17:37 | XMS_ITS | Encounter Summary ---
Author Organization [employer] Address [address] [facility] [address] 7t [place] [address] Care Team Providers Care Nozzleman Name Role Phone Analisa Hansen MD Primary Care Provide r Reason for Visit * Reason Comments Med Refill Encounter Details Date Type Department Care Team (Late Contact Info) Description 10/26/2022 Refill [facility] 230 [place], [place] [phone] Analisa Hansen MD 230 [place], [place] [phone] Social History Tobacco Use Types Packs/Day Years [...] suspected to have Coronavirus/COVID-19? No / Unsure 10/26/2022 10:18 AM EDT documented as of this encounter Plan of Treatment Upcoming Encounters Date Type Department Care Team (Late Contact Info) Description 06/25/2024 3:15 PM EST Telemedicine [facility] [address] [place] [address] Analisa Hansen MD [address] [place] [address] 11/06/2024 1:00 PM EDT Office Visit [facility] ADULT DENT[facility] [address] [place], [place] [phone] Devon Victoriaaris [address] [place] [address] documented as of this encounter Visit Diagnoses Not on filedocumented in this encounter Additional Health Concerns Assessment Noted Time PHQ-9 Depression Total Score: 12 023 11:55 AM EDT documented as of this encounter Care Teams Nozzleman Relationship Specialty Start Date End Date Analisa Hansen MD [address] [place] [address] PCP - General Family Medicine 03/07/19 documented as of this encounter
--- OUTSIDE RECORDS SUMMARY | 2024-06-18 17:37 | XMS_ITS | Encounter Summary ---
Author Organization [employer] Address [address] 7t [place] [address] Care Team Providers Care Marine Engineer Cpvec Name Role Phone Analisa Hansen MD Primary Care Provide r Encounter Details Date Type Department Care Team ([facility] Contact Info) Description 05/23/2022 Orders Only [facility] MEDICINE [address] [place] [address] [phone] Vandana Cm MD [address] [place] [address] [phone] Blurry vision (Primary Dx) Social History Tobacco Use Types [...] Info) Description 06/25/2024 3:15 PM EST Telemedicine [facility] MED[facility]INE [address] [place] [address] [phone] Analisa Hansen MD [address] [place] [address] 11/06/2024 1:00 PM EDT Office Visit [facility] ADULT DENTAL [address] [place], [place] [phone] Loly Victoria 230 [place] [address] documented as of this encounter Visit Diagnoses Diagnosis Blurry vision- Primary Other specified visual disturbances documented in this encounter Care Teams Marine Engineer Cpvec Relationship Specialty Start Date End Date Analisa Hansen MD 230 [place] [address] PCP - General Family Medicine 03/07/19 documented as of this encounter
--- OUTSIDE RECORDS SUMMARY | 2024-06-18 17:37 | XMS_ITS | Encounter Summary ---
Author Organization [employer] Address [address] 7t [place] [address] Care Team Providers Care Production Reproduction Manager Name Role Phone Analisa Hansen MD Primary Care Provide r Reason for Visit * Reason Onset Date Comments new appt 07/28/2023 Encounter Details Date Type Department Care Team (Late st Contact Info) Description 07/28/[address] [facility] ADULT DENTAL [address] [place] [address] Matt Kaplan, DMD [address] [place] [address] new appt Social History Tobacco Use Types Packs/Day Years [...] Recorded Patient Health Questionnaire-2 Score 0 05/23/2023 Sex and Gender Information Value Date Recorded Sex Assigned at Male 02/21/2022 10:17 AM EDT Legal Sex Male 10:17 AM EDT Gender Identity Male 02/21/2022 10:17 AM EDT Sexual Orientation Straight 02/21/2022 10 :17 AM EDT documented as of this encounter Miscellaneous Notes * Telephone Encounter - Rosemary Barahona - 07/28/2023 3:09 PM EDT Patient had crown delivery scheduled for 07/30 but is unable to make that day. Would like a new appt. DR documented in this encounter Plan of Treatment Upcoming Encounters Date Type Department Care Team (Late st Contact Info) Description 06/25/2024 3:15 PM EST Telemedicine [facility] MEDICINE 230 [place] [address] Analisa Hansen MD 230 [place] [address] 11/06/2024 1:00 PM EDT Office Visit [facility] ADULT DENTAL 230 [place] [address] Loly Victoria 230 [place] [address] documented as of this encounter Visit Diagnoses Not on filedocumented in this encounter Additional Health Concerns Assessment Noted Time PHQ-9 Depression Total Score: 0 05/23/19 24 11:05 AM EST documented as of this encounter Care Teams Production Reproduction Manager Relationship Specialty Start Date End Date Analisa Hansen MD [address] [place] [phone] PCP - General Family Medicine 03/07/19 documented as of this encounter
--- OUTSIDE RECORDS SUMMARY | 2024-06-18 17:37 | XMS_ITS | Encounter Summary ---
Author Organization [employer] Address [address] 7t [place] [address] Care Team Providers Care Head Baggage Porter Name Role Phone Analisa Hansen MD Primary Care Provide r Reason for Visit * Reason Comments Med Refill Encounter Details Date Type Department Care Team (Late Contact Info) Description 08/29/2022 Refill [facility]INE [address] [place], [place] [phone] Stephanie Segal FNP 230 [place], [place] [phone] Vitamin D deficiency Social History Tobacco Use Types Packs/Day Years [...] Info) Description 06/25/2024 3:15 PM EST Telemedicine [facility] MEDICINE [address] [place], [place] [phone] Analisa Hansen MD [address] [place] [address] 11/06/2024 1:00 PM EDT Office Visit [facility] ADULT DENTAL 230 [place], [place] [phone] Loly Victoria 230 [place], [place] [phone] documented as of this encounter Visit Diagnoses Diagnosis Vitamin D deficiency documented in this encounter Care Teams Head Baggage Porter Relationship Specialty Start Date End Date Analisa Hansen MD [address] [place] [address] PCP - General Family Medicine 03/07/19 documented as of this encounter
--- OUTSIDE RECORDS SUMMARY | 2024-06-18 17:37 | XMS_ITS | Encounter Summary ---
Author Organization [employer] Address [address] 7t [place] [address] Care Team Providers Care Back Shoe Cutter Name Role Phone Analisa Hansen MD Primary Care Provide r Encounter Details Date Type Department Care Team (Late st Contact Info) Description 05/03/2023 Abstract [facility] ADULT DENTAL [address] [place] [address] Matt Kaplan, DMD [address] [place] [address] Social History Tobacco Use Types Packs/Day Years Used Date Smoking Tobacco: Never Smokeless Tobacco: Never Alcohol Use Standard Drinks/Week Comments Never 0 (1 standard drink = 0.6 oz pur e alcohol) Depression Answer Date Recorded Patient Health Questionnaire-9 Score 12 09/07/2022 Housing Stability Answer Date Recorded What is your housing situation today? I have singhgeri graves 02/08/[address] you [...] Info) Description 06/25/2024 3:15 PM EST Telemedicine [facility] [address] [place] [address] Analisa Hansen MD 230 [place] [address] 11/06/2024 1:00 PM EDT Office Visit [facility] ADULT DENTAL [address] [place] [address] Esme, Loly [address] [place] [address] documented as of this encounter Visit Diagnoses Not on filedocumented in this encounter Additional Health Concerns Assessment Noted Time PHQ-9 Depression Total Score: 12 023 11:55 AM EDT documented as of this encounter Care Teams Back Shoe Cutter Relationship Specialty Start Date End Date Analisa Hansen MD [address] [place] [phone] PCP - General Family Medicine 03/07/19 documented as of this encounter
== END 2024-06-18 14:27 | disposition home or self-care (01) ==
PROVIDERS: PCP Internal Medicine
DX: I10 Essential (primary) hypertension (principal); R00.0 Tachycardia, unspecified; G47.33 Obstructive sleep apnea (adult) (pediatric); Z99.89 Dependence on other enabling machines and devices
CPT/HCPCS: 99214

== ENCOUNTER → 2024-06-18 14:04 | Outpatient (BNVA) | payer OTHER, SELFPAY | PROVIDERS: PCP Internal Medicine | DX: I10 Essential (primary) hypertension (principal); R00.0 Tachycardia, unspecified; G47.33 Obstructive sleep apnea (adult) (pediatric); Z99.89 Dependence on other enabling machines and devices | CPT/HCPCS: 99212 ==

== ENCOUNTER 2024-08-23 09:53 | Outpatient (AMB) | payer OTHER, SELFPAY ==
--- NOTE | 2024-08-23 10:16 | MHC.OFFWIV ---
Intake Vital Signs 08/23/24 10:17 Weight 250 lb BP 122/80 Blood Pressure Location Lt brachial Position Sitting Pulse 75 Pulse Source Pulse Oximeter Temp 98.2 F Temp Source Oral Pulse Oximetry (%) 98 Oxygen Delivery Method Room Air Intake Visit Reasons: EP-lt side back/kidney pain Intake Note: Patient here for left kidney pain that has been present for a couple of weeks. Patient Tobacco Use Status: Never used Tobacco Allergies No Known Drug Intolerances Allergy (Mild, Verified 08/23/24 10:16) UNKNOWN Do you need a note to return to daycare/school/sports/work: No HPI EP-lt side back/kidney pain HPI Details This is a 48-year-old male patient who presents to the walk-in clinic with a 2 week history of intermittent, stabbing left flank pain. He denies any trauma to area. Denies any urinary symptoms. States that he is having normal urination and BMs. Pain is not associated with any specific movement or activity. Patient states he is able to sleep. History of a cyst on one of his kidneys, however he can not recall which kidney it was. Also reports a history of hematuria, which initiated the renal workup in the first place. He states this was about 4 years ago and has not followed up with nephrology since then. PCP at [facility]. [facility] Medical History Obesity (BMI 30-39.9) Essential hypertension Allergic rhinitis due to allergen Cough MARIAN on CPAP MARIAN (obstructive sleep apnea) Family History Father Heart disease DM2 (diabetes mellitus, type 2) Heart murmur Social History Household Members: None Housing: Apartment Do you presently have visiting nurse or other home services: No Alcohol intake: never Patient Tobacco Use Status: Never used Tobacco Review of Systems Const All systems reviewed & are unremarkable except as noted in HPI and below Physical Exam Vital Signs: Last Vital Signs Temp 98.2 F 08/23/24 10:17 Pulse 75 08/23/24 10:17 BP 122/80 08/23/24 10:17 Pulse Ox 98 08/23/24 10:17 Oxygen Delivery Method Room Air 05/02/25 10:17 Const General: cooperative, healthy appearing, comfortable and no acute distress Resp Effort & Inspection: normal respiratory effort Auscultation: clear to auscultation bilaterally Cardio Rate: regular rate Rhythm: regular rhythm General: Yes no CVA tenderness Back/Spine/Pelvis Back: no CVA tenderness Skin General skin exam: no rashes or lesions noted Extrem General: Yes no clubbing, cyanosis or edema Psych Appearance: grossly normal Mental Status: mental status grossly normal Speech and movement: Normal speech and movement present Results AMB Urinalysis, Automated UA Leukoctes 0 Ally/uL Last Edit by Cyn Mireles CCM on 08/23/24 10:29 UA Nitrite Negative Last Edit by Cyn Mireles [facility] on 08/23/24 10:29 UA Urobilinogen 0.2 mg/dL Last Edit by Cyn Mireles [facility] on 08/23/24 10:29 UA Protein 0 mg/dL Last Edit by Cyn Mireles [facility] on 08/23/24 10:29 UA pH 6.0 Last Edit by Cyn Mireles [facility] on 08/23/24 10:29 UA Blood 10 Keon/uL Last Edit by Cyn Mireles [facility] on 08/23/24 10:29 UA Specific [place] 1.020 Last Edit by Cyn Mireles [facility] on 08/23/24 10:29 UA Ketone Negative Last Edit by Cyn Mireles [facility] on 08/23/24 10:29 UA Bilirubin 0 mg/dL Last Edit by Cyn Mireles [facility] on 08/23/24 10:29 UA Glucose 0 mg/dL Last Edit by Cyn Mireles [facility] on 08/23/24 10:29 Results Reviewed Results Reviewed: Laboratory Last Values Urine pH (Auto) 6.0 08/23/24 10:28 Specific [place] (Auto) 1.020 08/23/24 10:28 Urine Protein (Auto) 0 mg/dL 08/23/24 10:28 Glucose (UA)(Auto) 0 mg/dL 08/23/24 10:28 Urine Ketones (Auto) Negative 08/23/24 10:28 Urine Blood (Auto) 10 [place]/uL 08/23/24 10:28 Urine Nitrite (Auto) Negative 08/23/24 10:28 Urine Bilirubin (Auto) 0 mg/dL 08/23/24 10:28 Urine Urobilinogen (Auto) 0.2 mg/dL 08/23/24 10:28 Leukocyte Esterase (Auto) 0 Ally/uL 08/23/24 10:28 Assessment & Plan Assessment & Plan (1) Left flank pain: Code(s): R10.9 - Unspecified abdominal pain Plan: Patient does not have any pain at this time, and I can not elicit pain on exam. It is possible he has a kidney stone, which we discussed. I will obtain KUB today, however I discussed with patient that radiography can detect certain stones, however can miss small and radiopaque stones. He is aware of this and would still like to proceed with x-ray. I encouraged him to contact his PCP for evaluation and possible ultrasound order. We discussed that if pain worsens, or if he develops any urinary symptoms/fever/chills, he should go to the emergency department for evaluation. He verbalizes understanding and agrees to plan. Orders: Orders AMB Urinalysis Automated Today Salena Horner PA-C Z13.9 - Encounter for screening, unspecified XR KUB Today MARGOT Alanis R10.9 - Unspecified abdominal pain Coding Level of Care Code Est Pt Level 4 (86970) Diagnoses Left flank pain R10.9
[2024-08-23 10:17] VITALS: BP 122/80; PULSE 75; TEMP 36.8; O2SAT 98
--- OUTSIDE RECORDS SUMMARY | 2024-08-23 10:40 | XMS_ITS | Encounter Summary ---
Author Organization [employer] Address [address] [facility] 7t [place] [address] Care Team Providers Care Janitorial Manager Name Role Phone Analisa Hansen MD Primary Care Provide r Encounter Details Date Type Department Care Team (Late st Contact Info) Description 05/27/2022 Orders Only [facility] MEDICINE [address] [place] [address] Stephanie Segal FNP [address] [place] [address] Vitamin D deficiency (Primary Dx) Social History [...] Care Team (Late st Contact Info) Description 11/06/2024 1:00 PM EDT Office Visit [facility] ADULT DENTAL [address] [place] [address] Loly Victoria [address] [place] [address] documented as of this encounter Visit Diagnoses Diagnosis Vitamin D deficiency- Primary documented in this encounter Care Teams Janitorial Manager Relationship Specialty Start Date End Date Analisa Hansen MD 230 [place] [address] PCP - General Family Medicine 03/07/19 documented as of this encounter
--- OUTSIDE RECORDS SUMMARY | 2024-08-23 10:40 | XMS_ITS | Encounter Summary ---
Author Organization [employer] Address [address] [facility] 7t [place] [address] Care Team Providers Care Advertising Sales Representative Name Role Phone Analisa Hansen MD Primary Care Provide r Reason for Visit * Reason Onset Date Comments new appt 07/28/2023 Encounter Details Date Type Department Care Team (Late st Contact Info) Description 07/28/2023 Telephone [facility] ADULT DENTAL [address] [place] [address] Matt Kaplan, DMD [address] [place] [address] new appt Social History Tobacco Use Types [...] that day. Would like a new appt. documented in this encounter Plan of Treatment Upcoming Encounters Date Type Department Care Team (Late st Contact Info) Description 11/06/2024 1:00 PM EDT Office Visit [facility] ADULT DENTAL [address] [place], [place] [phone] Esme, Loly [address] [place] [address] documented as of this encounter Visit Diagnoses Not on filedocumented in this encounter Additional Health Concerns Assessment Noted Time PHQ-9 Depression Total Score: 0 05/23/19 24 11:05 AM EST documented as of this encounter Care Teams Advertising Sales Representative Relationship Specialty Start Date End Date Analisa Hansen MD 230 [place], [place] [phone] PCP - General Family Medicine 03/07/19 documented as of this encounter
--- OUTSIDE RECORDS SUMMARY | 2024-08-23 10:40 | XMS_ITS | Encounter Summary ---
Author Organization [employer] Address [address] [facility] 7t [place] [address] Care Team Providers Care Retanned Leather Roller Name Role Phone Analisa Hansen MD Primary Care Provide r Reason for Visit * Reason Comments Med Refill Encounter Details Date Type Department Care Team ([facility] st Contact Info) Description 08/21/2024 Refill [facility] MEDICINE [address] [place], [place] [phone] Analisa Hansen MD 230 [place], [place] [phone] Essential hypertension Social History Tobacco Use Types Packs/Day Years [...] Description 11/06/2024 1:00 PM EDT Office Visit [facility] ADULT DENTAL [address] [place] [address] Esme, Loly [address] [place] [address] documented as of this encounter Visit Diagnoses Diagnosis Essential hypertension Unspecified essential hypertension documented in this encounter Additional Health Concerns Assessment Noted Time PHQ-9 Depression Total Score: 0 05/23/19 24 11:05 AM EST documented as of this encounter Care Teams Retanned Leather Roller Relationship Specialty Start Date End Date Analisa Hansen MD [address] [place] [address] PCP - General Family Medicine 03/07/19 documented as of this encounter
--- OUTSIDE RECORDS SUMMARY | 2024-08-23 10:40 | XMS_ITS | Encounter Summary ---
Author Organization [employer] Address [address] [facility] 7t [place] [address] Care Team Providers Care Guyline Operator Name Role Phone Analisa Hansen MD Primary Care Provide r Encounter Details Date Type Department Care Team ([facility] st Contact Info) Description 08/22/2024 Telephone [facility]ICINE [address] [place], [place] [phone] Analisa Hansen MD 230 [place], [place] [phone] Social History Tobacco Use Types Packs/Day Years [...] encounter Miscellaneous Notes * Telephone Encounter - Catherine Kennedy RN - 08/22/2024 2:16 PM EDT Called pt. RE: Incoming pt. Portal message of Pt. Stating that he has been having pain in his lowerleft side of his back. Pt. States that sometimes the pain will go away for a couple of weeks and then the pain will come back. Pain feels like a stabbing pain x 1 minute and then will go away. Pt. Isnot having pain at this time. Pt. Is urinating well, no blood in urine. Pt. Was seen in past for cysts on kidneys but the Urologist that he was referred to states they have not received any appointments. Pt. Wants to be seen by a different Urologist because pt. Feels like they have not followed through with him enough. No fever. Pt. Wants to be seen today or tomorrow. Advised that if he wants to be seen right away, he will have to come to [facility] walk in and that schedule is almost full for today. I advised pt. To come first thing tomorrow am due to the fact that he is not having any pain at thistime. Protocol Used: Flank Pain (Adult) Protocol-Based Disposition: See in Office or Video Visit Today or Tomorrow Video visit not offered Positive Triage Question: * Patient wants to be seen * All higher-acuity triage questions were negative Care Advice Discussed: * Use Heat After 48 Hours for Pain documented in this encounter Plan of Treatment Upcoming Encounters Date Type Department Care Team (Late st Contact Info) Description 11/06/2024 1:00 PM EDT Office Visit [facility] ADULT DENTAL [address] [place] [address] Loly Victoria [address] [place] [address] documented as of this encounter Visit Diagnoses Not on filedocumented in this encounter Additional Health Concerns Assessment Noted Time PHQ-9 Depression Total Score: 0 05/23/19 24 11:05 AM EST documented as of this encounter Care Teams Guyline Operator Relationship Specialty Start Date End Date Analisa Hansen MD 230 [place] [address] PCP - General Family Medicine 03/07/19 documented as of this encounter
--- OUTSIDE RECORDS SUMMARY | 2024-08-23 10:40 | XMS_ITS | Encounter Summary ---
Author Organization [employer] Address [address] [facility] 7t [place] [address] Care Team Providers Care Genetic Technologist Name Role Phone Analisa Hansen MD Primary Care Provide r Encounter Details Date Type Department Care Team (Late st Contact Info) Description 05/23/[address] [facility] MED[facility] [address] [place], [place] [phone] Vandana mC MD [address] [place] [address] Blurry vision (Primary Dx) Social History Tobacco [...] Description 11/06/2024 1:00 PM EDT Office Visit [facility] [address], [place] [phone] Loly Victoria [address] [place] [address] documented as of this encounter Visit Diagnoses Diagnosis Blurry vision- Primary Other specified visual disturbances documented in this encounter Care Teams Genetic Technologist Relationship Specialty Start Date End Date Analisa Hansen MD [address] [place] [address] PCP - General Family Medicine 03/07/19 documented as of this encounter
--- OUTSIDE RECORDS SUMMARY | 2024-08-23 10:40 | XMS_ITS | Encounter Summary ---
Author Organization [employer] Address 75 [facility] 7t [place] [address] Care Team Providers Care Etched Circuit Processor Name Role Phone Analisa Hansen MD Primary Care Provide r Encounter Details Date Type Department Care Team ([facility] Contact Info) Description 08/30/2022 Abstract [facility] [address] [place] [address] Matt Kaplan, LELIA [address] [place] [address] Social History Tobacco Use Types Packs/Day Years [...] Upcoming Encounters Date Type Department Care Team ([facility] Contact Info) Description 11/06/2024 1:00 PM EDT Office Visit [facility] [address] [place] [address] Loly Victoria [address] [place] [address] documented as of this encounter Visit Diagnoses Not on filedocumented in this encounter Care Teams Etched Circuit Processor Relationship Specialty Start Date End Date Analisa Hansen MD [address] [place] [address] PCP - General Family Medicine 03/07/19 documented as of this encounter
--- OUTSIDE RECORDS SUMMARY | 2024-08-23 10:41 | XMS_ITS | Encounter Summary ---
Author Organization [employer] Address 75 [facility] 7t [place] [address] Care Team Providers Care Addictions Counselor Name Role Phone Analisa Hansen MD Primary Care Provide r Reason for Visit * Reason Comments Med Change Request Encounter Details Date Type Department Care Team ([facility] st Contact Info) Description 05/27/2024 Refill [facility] MEDICINE [address] [place], [place] [phone] Analisa Hansen MD [address] [place], [place] [phone] Class 2 severe obesity with serious comorbidity [...] Description 11/06/2024 1:00 PM EDT Office Visit [facility] ADULT DENTAL [address] [place] [address] EsmeDevonLoly [address] [place] [address] documented as of this encounter Visit Diagnoses Diagnosis Class 2 severe obesity with serious comorbidity and body mass index (BMI) of 38.0 to 38.9 in adult, unspecified obesity type (CMS/HCC) documented in this encounter Additional Health Concerns Assessment Noted Time PHQ-9 Depression Total Score: 0 05/23/19 24 11:05 AM EST documented as of this encounter Care Teams Addictions Counselor Relationship Specialty Start Date End Date Analisa Hansen MD [address] [place] [address] PCP - General Family Medicine 03/07/19 documented as of this encounter
--- OUTSIDE RECORDS SUMMARY | 2024-08-23 10:41 | XMS_ITS | Encounter Summary ---
Author Organization [employer] Address 75 [facility] 7t [place] [address] Care Team Providers Care Agency Appointments Supervisor Name Role Phone Analisa Hansen MD Primary Care Provide r Reason for Visit * Reason Comments Med Refill Encounter Details Date Type Department Care Team ([facility] st Contact Info) Description 04/01/2023 Refill [facility] [address] [place], [place] [phone] Emil Aparicio, DMD [address] [place] [address] Dental caries Social History Tobacco Use Types [...] EDT Office Visit [facility] [address] [place] [address] Esme, Loly [address] [place] [address] documented as of this encounter Visit Diagnoses Diagnosis Dental caries Unspecified dental caries documented in this encounter Additional Health Concerns Assessment Noted Time PHQ-9 Depression Total Score: 12 023 11:55 AM EDT documented as of this encounter Care Teams Agency Appointments Supervisor Relationship Specialty Start Date End Date Analisa Hansen MD [address] [place] [address] PCP - General Family Medicine 03/07/19 documented as of this encounter
--- OUTSIDE RECORDS SUMMARY | 2024-08-23 10:41 | XMS_ITS | Encounter Summary ---
Author Organization [employer] Address 75 [facility] 7t [place] [address] Care Team Providers Care Contact Printer Dry Film Name Role Phone Analisa Hansen MD Primary Care Provide r Reason for Visit * Reason Comments Med Refill Encounter Details Date Type Department Care Team (Late st Contact Info) Description 12/29/2022 Refill [facility] [address] [place] [address] Victoria Gonsalves, ANP [address] [place] [address] Shortness of breath Social History Tobacco Use [...] Description 11/06/2024 1:00 PM EDT Office Visit [facility] ADULT D[facility] [address] [place] [address] Loly Victoria [address] [place] [address] documented as of this encounter Visit Diagnoses Diagnosis Shortness of breath documented in this encounter Additional Health Concerns Assessment Noted Time PHQ-9 Depression Total Score: 12 023 11:55 AM EDT documented as of this encounter Care Teams Contact Printer Dry Film Relationship Specialty Start Date End Date Analisa Hansen MD [address] [place] [address] PCP - General Family Medicine 03/07/19 documented as of this encounter
--- OUTSIDE RECORDS SUMMARY | 2024-08-23 10:41 | XMS_ITS | Encounter Summary ---
Author Organization [employer] Address [address] [facility] 7t [place] [address] Care Team Providers Care Elementary Special Education Teacher Name Role Phone Analisa Hansen MD Primary Care Provide r Reason for Visit * Reason Comments Med Refill Encounter Details Date Type Department Care Team (Late st Contact Info) Description 10/26/2022 Refill [facility] MEDICINE [address] [place], [place] [phone] Analisa Hansen MD [address] [place] [address] Social History Tobacco Use Types Packs/Day Years [...] Department Care Team (Late Contact Info) Description 11/06/2024 1:00 PM EDT Office Visit [facility] ADULT DENTAL [address] [place] [address] Loly Victoria [address] [place] [address] documented as of this encounter Visit Diagnoses Not on filedocumented in this encounter Additional Health Concerns Assessment Noted Time PHQ-9 Depression Total Score: 12 023 11:55 AM EDT documented as of this encounter Care Teams Elementary Special Education Teacher Relationship Specialty Start Date End Date Analisa Hansen MD [address] [place] [address] PCP - General Family Medicine 03/07/19 documented as of this encounter
--- OUTSIDE RECORDS SUMMARY | 2024-08-23 10:41 | XMS_ITS | Encounter Summary ---
Author Organization [employer] Address 75 [facility] 7t [place] [address] Care Team Providers Care Internal Recruiter Name Role Phone Analisa Hansen MD Primary Care Provide r Reason for Visit * Reason Comments Med Change Request Encounter Details Date Type Department Care Team ([facility] st Contact Info) Description 05/29/2024 Refill [facility] MEDICINE [address] [place], [place] [phone] Analisa Hansen MD 230 [place], [place] [phone] Class 2 severe obesity with serious comorbidity [...] Description 11/06/2024 1:00 PM EDT Office Visit [facility] ADULT DENTAL [address] [place] [address] EsmeDevonLoly [address] [place] [address] documented as of this encounter Visit Diagnoses Diagnosis Class 2 severe obesity with serious comorbidity and body mass index (BMI) of 38.0 to 38.9 in adult, unspecified obesity type (CMS/HCC) documented in this encounter Additional Health Concerns Assessment Noted Time PHQ-9 Depression Total Score: 0 05/23/19 24 11:05 AM EST documented as of this encounter Care Teams Internal Recruiter Relationship Specialty Start Date End Date Analisa Hansen MD [address] [place] [address] PCP - General Family Medicine 03/07/19 documented as of this encounter
--- OUTSIDE RECORDS SUMMARY | 2024-08-23 10:41 | XMS_ITS | Encounter Summary ---
Author Organization [employer] Address [address] [facility] 7t [place] [address] Care Team Providers Care Solar Sales Ambassador Name Role Phone Analisa Hansen MD Primary Care Provide r Reason for Visit * Reason Onset Date Comments Med Change Request Prior Authorization 05/09/2024 [facility] dickey Encounter Details Date Type Department Care Team (Late st Contact Info) Description 05/09/2024 Refill [facility] MED[facility] [address] [place] [address] Analisa Hansen MD [address] [place], [place] [phone] Class 2 severe obesity with serious comorbidity [...] Description 11/06/2024 1:00 PM EDT Office Visit [facility] ADULT DENTAL [address] [place] [address] Esme, Loly [address] [place] [address] documented as of this encounter Visit Diagnoses Diagnosis Class 2 severe obesity with serious comorbidity and body mass index (BMI) of 38.0 to 38.9 in adult, unspecified obesity type (CMS/HCC) documented in this encounter Additional Health Concerns Assessment Noted Time PHQ-9 Depression Total Score: 0 05/23/19 24 11:05 AM EST documented as of this encounter Care Teams Solar Sales Ambassador Relationship Specialty Start Date End Date Analisa Hansen MD [address] [place] [address] PCP - General Family Medicine 03/07/19 documented as of this encounter
--- OUTSIDE RECORDS SUMMARY | 2024-08-23 10:41 | XMS_ITS | Encounter Summary ---
Author Organization [employer] [facility] Address [address] [facility] 7t [place] [address] Care Team Providers Care Wellness Instructor Name Role Phone Analisa Hansen MD Primary Care Provide r Reason for Visit * Reason Comments Med Refill Encounter Details Date Type Department Care Team (Late st Contact Info) Description 08/29/2022 Refill [facility] MED[facility] [address] [place] [address] Stephanie Segal FNP [address] [place] [address] Vitamin D deficiency Social History Tobacco Use [...] Description 11/06/2024 1:00 PM EDT Office Visit [facility] ADULT DENTAL [address] [place] [address] Loly Victoria [address] [place] [address] documented as of this encounter Visit Diagnoses Diagnosis Vitamin D deficiency documented in this encounter Care Teams Wellness Instructor Relationship Specialty Start Date End Date Analisa Hansen MD [address] [place] [address] PCP - General Family Medicine 03/07/19 documented as of this encounter
--- OUTSIDE RECORDS SUMMARY | 2024-08-23 10:41 | XMS_ITS | Encounter Summary ---
Author Organization [employer] Address [address] [facility] 7t [place] [address] Care Team Providers Care Manager Mall Name Role Phone Analisa Hansen MD Primary Care Provide r Encounter Details Date Type Department Care Team (Late st Contact Info) Description 05/03/2023 Abstract [facility] [address] [facility] [place] [address] Matt Kaplan, LELIA [address] [place] [address] Social History Tobacco Use Types Packs/Day Years [...] 1:00 PM EDT Office Visit [facility] [address] [place] [address] EsmeDevonLoly [address] [place] [address] documented as of this encounter Visit Diagnoses Not on filedocumented in this encounter Additional Health Concerns Assessment Noted Time PHQ-9 Depression Total Score: 12 023 11:55 AM EDT documented as of this encounter Care Teams Manager Mall Relationship Specialty Start Date End Date Analisa Hansen MD [address] [place] [address] PCP - General Family Medicine 03/07/19 documented as of this encounter
--- OUTSIDE RECORDS SUMMARY | 2024-08-23 10:41 | XMS_ITS | Encounter Summary ---
Author Organization [employer] Address [address] [facility] 7t [place] [address] Care Team Providers Care Associate Professor Of Biology Name Role Phone Analisa Hansen MD Primary Care Provide r Reason for Visit * Reason Comments Med Change Request Encounter Details Date Type Department Care Team ([facility] st Contact Info) Description 05/09/2024 Refill [facility] MEDICINE [address] [place], [place] [phone] Analisa Hansen MD [address] [place], [place] [phone] Class 2 severe obesity with serious comorbidity [...] Description 11/06/2024 1:00 PM EDT Office Visit [facility] ADULT DENTAL [address] [place] [address] EsmeDevonLoly [address] [place] [address] documented as of this encounter Visit Diagnoses Diagnosis Class 2 severe obesity with serious comorbidity and body mass index (BMI) of 38.0 to 38.9 in adult, unspecified obesity type (CMS/HCC) documented in this encounter Additional Health Concerns Assessment Noted Time PHQ-9 Depression Total Score: 0 05/23/19 24 11:05 AM EST documented as of this encounter Care Teams Associate Professor Of Biology Relationship Specialty Start Date End Date Analisa Hansen MD [address] [place] [address] PCP - General Family Medicine 03/07/19 documented as of this encounter
--- OUTSIDE RECORDS SUMMARY | 2024-08-23 10:41 | XMS_ITS | Encounter Summary ---
Author Organization [employer] Address [address] [facility] 7t [place] [address] Care Team Providers Care Magician/Illusionist Name Role Phone Analisa Hansen MD Primary Care Provide r Reason for Visit * Reason Comments Med Refill Encounter Details Date Type Department Care Team ([facility] st Contact Info) Description 02/28/2023 Refill [facility] ADULT DENTAL [address] [place], [place] [phone] Emil Aparicio, DMD [address] [place] [address] Dental caries Social History Tobacco Use Types [...] Office Visit [facility] ADULT DENTAL [address] [place] [address] Esme, Loly [address] [place] [address] documented as of this encounter Visit Diagnoses Diagnosis Dental caries Unspecified dental caries documented in this encounter Additional Health Concerns Assessment Noted Time PHQ-9 Depression Total Score: 12 023 11:55 AM EDT documented as of this encounter Care Teams Magician/Illusionist Relationship Specialty Start Date End Date Analisa Hansen MD [address] [place] [address] PCP - General Family Medicine 03/07/19 documented as of this encounter
--- OUTSIDE RECORDS SUMMARY | 2024-08-23 10:41 | XMS_ITS | Encounter Summary ---
Author Organization [employer] Address [address] [facility] 7t [place] [address] Care Team Providers Care Pattern Wheel Maker Name Role Phone Analisa Hansen MD Primary Care Provide r Reason for Visit * Reason Comments Med Change Request Encounter Details Date Type Department Care Team ([facility] st Contact Info) Description 05/09/2024 Refill [facility] MEDICINE [address] [place], [place] [phone] Analisa Hansen MD 230 [place], [place] [phone] Class 2 severe obesity with serious comorbidity [...] Description 11/06/2024 1:00 PM EDT Office Visit [facility] ADULT DENTAL [address] [place] [address] EsmeDevonLoly [address] [place] [address] documented as of this encounter Visit Diagnoses Diagnosis Class 2 severe obesity with serious comorbidity and body mass index (BMI) of 38.0 to 38.9 in adult, unspecified obesity type (CMS/HCC) documented in this encounter Additional Health Concerns Assessment Noted Time PHQ-9 Depression Total Score: 0 05/23/19 24 11:05 AM EST documented as of this encounter Care Teams Pattern Wheel Maker Relationship Specialty Start Date End Date Analisa Hansen MD [address] [place] [address] PCP - General Family Medicine 03/07/19 documented as of this encounter
--- OUTSIDE RECORDS SUMMARY | 2024-08-23 10:41 | XMS_ITS | Clinical Summary ---
Author Organization [employer] Address [address] [facility] 7t [place] [address] Care Team Providers Care Statistical Geneticist Name Role Phone Analisa Hansen MD Primary [...] DAILY FOR ALLERGIC RHINITIS 09/06/19 23 Active D3-1000 25 MCG (1000 UT) capsule TAKE 1 CAPSULE BY MOUTH EVERY DAY 90 capsule 1 12/07/19 24 Active Sod Fluoride-Potassi um Nitrate 1.1-5 % paste [place] teeth for 2 minutes, morning and night. Spit, do not rinse. Do not eat or drink anything for 30 minutes following brushing. 112 g 3 01/31/20 24 Active Diclofenac Sodium 1 % gel APPLY 1 INCH TOPICALLY IF NEEDED IN THE MORNING AND AT BEDTIME FOR PAIN 100 g 02/22/20 24 Active fluticasone (Flonase Allergy Relief) 50 MCG/ACT nasal spray Administer 2 sprays into affected nostril(s) at bed time. 06/29/19 22 Active clonazePAM (KlonoPIN) 2 MG tablet Take 1 tablet by mouth if needed in the morning and at bedtime. Active propranolol LA (Inderal LA) 120 MG 24 hr capsule Take 1 capsule by mouth Once per day. 05/14/19 25 Active Blood Pressure kit 1 Units Once per day. 1 kit 05/22/19 25 Active guaiFENesin (Mucinex) 600 MG 12 hr tabletIndication s:Acute cough Take 2 tablets (1,200 mg) by mouth 2 times daily. Do not crush, chew, or split. 120 tablet 11 05/22/19 25 026 Active omega-3 (Fish Oil) 1000 MG capsuleIndicatio ns:Dyslipidemia TAKE 1 CAPSULE (500 MG) BY MOUTH IN THE MORNING. 60 capsule 3 06/26/19 25 Active Tirzepatide-Weig ht Management (Zepbound) 2.5 MG/0.5ML solution auto-injectorInd ications:Class 2 severe obesity with serious comorbidity and body mass index (BMI) of 38.0 to 38.9 in adult, unspecified obesity type (CMS/HCC) Inject 0.5 mL (2.5 mg) under the skin 1 (one) time per week. 0.5 mL 06/26/19 25 Active pravastatin (Pravachol) 40 MG tabletIndication s:Essential hypertension TAKE 1 TABLET (40 MG) BY MOUTH ONCE PER DAY. 90 tablet 1 08/22/19 25 Active pravastatin (Pravachol) 40 MG tabletIndication s:Essential hypertension TAKE 1 TABLET (40 MG) BY MOUTH ONCE PER DAY. 90 tablet 1 02/26/20 24 025 Discontinued Active Problems Problem Noted Date Diagnosed Date Sinus tachycardia 06/25/2024 Assessment & Plan (06/25/2024 3:43 PM EST): Patient educated to avoid caffeine Continue with propranolol 120 mg daily Continue to follow-up with cardiology Acute cough 05/22/2024 Assessment & Plan (05/22/2024 [...] 36.9 in adult 05/08/2024 Assessment & Plan (06/25/2024 3:44 PM EST): Extensive counseling about healthy diet and exercise done today I will prescribe for patient Zepbound 2.5 mg weekly, phentermine is contraindicated in this case due to underlying sinus tachycardia that required hospitalization Assessment & Plan (05/08/2024 4:08 PM EST): [...] cardiovascular exercise Patient will be refer to sales counselor Assessment & Plan (10/26/2022 11:10 AM EDT): [...] bariatric specialist I advise to come to [facility] when pain is present, also [...] Encounters Date Type Department Care Team Description 08/22/2024 Telephone [facility] MED[facility] [address] [place] [phone] Analisa Hansen MD 08/21/[address] [address] Analisa Hansen MD Essential hypertension 07/09/[address] [address] Analisa Hansen MD Prior Authorization ([facility] Request: Zepbound ) 06/25/2024 3:15 PM EST Telemedicine [facility] MED[facility]INE [address] [place] [phone] Analisa Hansen MD Class 2 severe obesity due to excess calories with serious comorbidity and body mass index (BMI) of 36.0 to 36.9 in adult ([facility]) (Primary Dx); Dyslipidemia; Sinus tachycardia; Class 2 severe obesity with serious comorbidity and body mass index (BMI) of 38.0 to 38.9 in adult, unspecified obesity type ([facility]) 06/25/2024 Travel 05/29/2024 Refill [facility] [address] [place] [address] Analisa Hansen MD Class 2 severe obesity with serious comorbidity and body mass index (BMI) of 38.0 to 38.9 in adult, unspecified obesity type ([facility]) 05/27/2024 Refill [facility] [address] [place] [address] Analisa Hansen MD Class 2 severe obesity with serious comorbidity and body mass index (BMI) of 38.0 to 38.9 in adult, unspecified obesity type ([facility]) from Last 3 Months Immunizations Name Administration [...] Office Visit [facility] ADULT DENTAL [address] [place] [address] Esme Loly [address] [place] [address] Health Maintenance Due Date Last Done Comments CT Colonography 1975 Colonoscopy 1977 FIT 1977 FOBT 1975 Sigmoidoscopy 1975 Family Planning (PISQ) 1992 Hepatitis B Vaccines (1 of 3 - 19+ 3-dose series) 1996 COVID-19 Vaccine ( - season) 2023 02/11/2022, 04/01/2021, 08/01/2020 Influenza Vaccine [...] Procedure Name Priority Date/Time Associated Diagnosis Comments PROPHYLAXIS - ADULT Routine 05/03/2024 3 :00 [...] Recently Relevant to Health Maintenance Results * (ABNORMAL) Lipid Panel with Reflex to Direct LDL (11/23/2023 9:36 AM EDT) Triglycerides 402(H) <150 mg/dL [facility] Comment:Desirable Triglyceri de: less than 150 mg/dLBorderline High Triglyceride 150-199 mg/dLHigh Triglyceride: 200-499 mg/dLVery High Triglyceride: greater than or equal to 5OO mg/dL Cholesterol 132 <200 mg/dL [facility] Comment:Desirable Cholestero l: less than 200 mg/dLBorderline High Cholesterol: 200-239 mg/dLHigh Cholesterol: greater than 239 mg/dL LDL Cholesterol Calculated TNP <100 mg/dL [facility] Comment:Unable to calculate the LDL. The formula of Friedwald,Garcia, and Sabra is only valid if the triglycerides areless than 400 mg/dl. HDL Cholesterol 21(L) >40 mg/dL [facility] Comment:Desirable HDL: great er than 40 mg/dL Note: This HDL assay may give artificially low results in patients with liver disease. Blood 11/23/2023 9:36 AM EDT 11/23/2023 11:03 AM EDT Analisa Cline MD LAB BLOOD ORDERABLES Final Result [facility] [address] [place] [phone] * Cologuard?? colon cancer screening (02/10/2023 1:30 PM EDT) Cologuard Result Negative Negative 02/19/20 11:27 AM EDT [employer] (CLIA #:[id number]) Comment: NEGATIVE TEST RESULT. A negative Cologuard [...] cancer. ??Following a negative Cologuard result, the [place] [employer] Society and U.S. Multi-Society Task Force screening guidelines recommend a Cologuard re-screening interval of 3 years. References: [place] [employer] Guideline for Colorectal Cancer Screening: https://www.cancer.org/cancer/dzwii-xdktoa-dqdssc/mcdribjlz-uzcbpfxtu-kyapbuk/ac s-rec ommendations.html.; Kirill DK, Chandana CR, Edith CastilloK, Colorectal Cancer Screening: Recommendations for Physicians and Patients from the U.S. Multi-Society Task Force on Colorectal Cancer Screening , Am J Gastroenterology 2017; 112:3421-7814. TEST DESCRIPTION: Composite algorithmic analysis of stool [...] (Jimbo Bermudez al, N Engl J Med 2014;370(14):8922-1997.) Cologuard may produce a false negative or false positive result (no colorectal cancer or precancerous polyp present at colonoscopy follow up). A negative Cologuard test result does not guarantee the absence of CRC or advanced adenoma (pre-cancer). The current Cologuard screening interval is every 3 years. ([place] [employer] and U.S. Multi-Society Task Force). Cologuard performance data in a 10,000 patient pivotal study using colonoscopy as the reference method can be accessed at the following location: www.[employer]Med.Kavalia/results. Additional description of the Cologuard test process, warnings and precautions can be found at www.cologuard.com. Stool specimen (specimen) 02/10/2023 1:30 PM EDT 02/13/2023 11:32 AM EDT us Analisa Cline MD LAB MOLECULAR DIAGNOS TICS ORDERABLES Final Result Performing Organization Address City/[facility] Co de Phone Number [employer] (CLIA #:[id number]) [address] [place] [address], * HIV Ab/Ag ([facility]) (02/08/2023 8:28 AM EDT) [facility] HIV AB/AG Nonreactive Nonreactive [facility] Comment:HIV-1 p24 Ag and/or HIV-1/HIV-2 Ab not detected.A test result that is nonreactive does not exclude thepossibility of exposure to or infection with HIV-1 and/orHIV-2. Nonreactive results in this assay for individualswith prior exposure to HIV-1 and/or HIV-2 may be due toantigen and antibody levels that are below the limit ofdetection of this assay.The [employer] HIV Ag/Ab Combo assay result andsupplemental assay results should be interpreted inconjunction with the patient's clinical presentation,history and other laboratory results. If the results areinconsistent with clinical evidence, additional testing issuggested to confirm the result. 02/08/2023 8:28 AM EDT 02/08/2023 11:04 AM EDT us Analisa Cline MD LAB BLOOD ORDERABLES Final Result Performing Organization Address City/[facility]/ZIP Co de Phone Number [facility] [address] [place] [phone] * Hepatitis C Antibody with Reflex to HCV, RNA, Quantitative, Real-Time PCR (02/08/2023 8:28 AM EDT) Hepatitis C Antibody Nonreactive Nonreactive [facility] Comment:Antibodies to HCV no t detected; does not exclude early acuteHCV infection. Blood Venous blood specimen / Unknown 02/08/2023 8:28 AM EDT 02/08/2023 11:04 AM EDT us Analisa Cline MD LAB BLOOD ORDERABLES Final Result [facility] [address] [place] [phone] from Last 3 Months or Most Recently Relevant to Health Maintenance Insurance [facility] ONE CARE < 65 [address]AL [facility] [place] [id number] [place] Care Teams Statistical Geneticist Relationship Specialty Start Date End Date Analisa Hansen MD [address] [place] [phone] PCP - General Family Medicine 03/07/19
--- OUTSIDE RECORDS SUMMARY | 2024-08-23 10:41 | XMS_ITS | Encounter Summary ---
Author Organization [employer] Address [address] [facility] 7t [place] [address] Care Team Providers Care Call Center Trainer Name Role Phone Analisa Hansen MD Primary Care Provide r Encounter Details Date Type Department Care Team ([facility] st Contact Info) Description 05/09/2024 Orders Only [facility] MEDICINE [address] [place], [place] [phone] Analisa Hansen MD [address] [place], [place] [phone] Social History Tobacco Use Types Packs/Day Years [...] Office Visit [facility] ADULT DENTAL [address] [place] [address] Esme, Loly [address] [place] [address] documented as of this encounter Visit Diagnoses Not on filedocumented in this encounter Additional Health Concerns Assessment Noted Time PHQ-9 Depression Total Score: 0 05/23/19 24 11:05 AM EST documented as of this encounter Care Teams Call Center Trainer Relationship Specialty Start Date End Date Analisa Hansen MD [address] [place] [address] PCP - General Family Medicine 03/07/19 documented as of this encounter
--- OUTSIDE RECORDS SUMMARY | 2024-08-23 10:41 | XMS_ITS | Encounter Summary ---
Author Organization [employer] Address [address] [facility] 7t [place] [address] Care Team Providers Care Security Tech Name Role Phone Analisa Hansen MD Primary Care Provide r Reason for Visit * Reason Comments Med Refill Encounter Details Date Type Department Care Team ([facility] st Contact Info) Description 01/29/2023 Refill [facility] ADULT DENTAL [address] [place] [address] Matt Kaplan, DMD [address] [place] [address] Dental caries Social History Tobacco Use Types [...] Description 11/06/2024 1:00 PM EDT Office Visit [facility] ADULT DENTAL [address] [place] [address] Esme, Loly [address] [place] [address] documented as of this encounter Visit Diagnoses Diagnosis Dental caries Unspecified dental caries documented in this encounter Additional Health Concerns Assessment Noted Time PHQ-9 Depression Total Score: 12 023 11:55 AM EDT documented as of this encounter Care Teams Security Tech Relationship Specialty Start Date End Date Analisa Hansen MD [address] [place] [address] PCP - General Family Medicine 03/07/19 documented as of this encounter
== END 2024-08-23 11:10 | disposition home or self-care (01) ==
PROVIDERS: PCP Internal Medicine; Visit Provider Nurse Practitioner Family
DX: Z13.9 Encounter for screening, unspecified (principal); R10.9 Unspecified abdominal pain

== ENCOUNTER 2024-08-23 09:53 | Outpatient (REF) | payer OTHER, SELFPAY ==
--- NOTE | ~2024-08-23 | XR_ITS ---
EXAMINATION: XR ABDOMEN KUB CLINICAL INDICATION: R10.9 - Unspecified abdominal pain COMPARISON: CT abdomen pelvis 04/04/2017. TECHNIQUE: AP view of the abdomen. FINDINGS: Minimal scattered stool in the right colon. There is no bowel distention. No radiopaque renal, gallbladder or bladder calculi. Scattered phleboliths in the pelvis. There is no organomegaly. There is mild degenerative changes at the L5-S1 disc level. XR/XR KUB IMPRESSION: No acute process seen. Electronically signed by: Abdiel Sellers MD 08/23/2024 11:26 AM EDT
--- OUTSIDE RECORDS SUMMARY | 2024-08-23 11:58 | XMS_ITS | Encounter Summary ---
Author Organization [employer] Address [address] [facility] 7t [place] [address] Care Team Providers Care Supervisor Melt House Name Role Phone Analisa Hansen MD Primary Care Provide r Reason for Visit * Reason Comments Med Refill Encounter Details Date Type Department Care Team ([facility] st Contact Info) Description 08/21/2024 Refill [facility] MEDICINE [address] [place], [place] [phone] Analisa Hansen MD [address] [place], [place] [phone] Essential hypertension Social History Tobacco Use Types [...] is your housing situation today? I have signh graves 11/21/[address] you [...] Description 11/06/2024 1:00 PM EDT Office Visit [facility] ADULT DENTAL [address] [place] [address] Esme, Loly [address] [place] [address] documented as of this encounter Visit Diagnoses Diagnosis Essential hypertension Unspecified essential hypertension documented in this encounter Additional Health Concerns Assessment Noted Time PHQ-9 Depression Total Score: 0 05/23/19 24 11:05 AM EST documented as of this encounter Care Teams Supervisor Melt House Relationship Specialty Start Date End Date Analisa Hansen MD [address] [place] [address] PCP - General Family Medicine 03/07/19 documented as of this encounter
--- OUTSIDE RECORDS SUMMARY | 2024-08-23 11:58 | XMS_ITS | Encounter Summary ---
Author Organization [employer] Address [address] [facility] 7t [place] [address] Care Team Providers Care Skein Winder Name Role Phone Analisa Hansen MD Primary Care Provide r Encounter Details Date Type Department Care Team (Late st Contact Info) Description 05/27/2022 Orders Only [facility] MEDICINE [address] [place] [address] Stephanie Segal FNP [address] [place] [address] Vitamin D deficiency (Primary Dx) Social History [...] Description 11/06/2024 1:00 PM EDT Office Visit [facility] ADULT DENTAL [address] [place] [address] Loly Victoria [address] [place] [address] documented as of this encounter Visit Diagnoses Diagnosis Vitamin D deficiency- Primary documented in this encounter Care Teams Skein Winder Relationship Specialty Start Date End Date Analisa Hansen MD [address] [place] [address] PCP - General Family Medicine 03/07/19 documented as of this encounter
--- OUTSIDE RECORDS SUMMARY | 2024-08-23 11:58 | XMS_ITS | Encounter Summary ---
Author Organization [employer] Address [address] [facility] 7t [place] [address] Care Team Providers Care Labor Training Manager Name Role Phone Analisa Hansen MD Primary Care Provide r Encounter Details Date Type Department Care Team (Late st Contact Info) Description 08/23/2024 Orders Only [facility] External Provider, [facility] Social History Tobacco Use Types Packs/Day Years [...] 1:00 PM EDT Office Visit [facility] ADULT DENTAL [address] [place] [address] Esme, Loly [address] [place] [address] documented as of this encounter Procedures Procedure Name Priority Date/Time Associated Diagnosis Comments XR KUB AND UPRIGHT 2 VIEWS Routine 08/23/2024 10:57 AM EDT documented in this encounter Results * XR KUB and Upright 2 Views (08/23/2024 10:57 AM EDT) Anatomical Region Laterality Modality Radiographic Yesika ging 08/23/2024 10:5 7 AM EDT Narrative 08/23/2024 11:29 AM EDT ? [facility] ?[address] [facility] ? [place] [address] ?XRay Report ? Signed ? Patient: Efraín Chirag,Boy ? MR#: [id number] ? : 1975 ?Acct:[id number] ? Age/Sex: 48 / M ?ADM Date: 05/02/25 ? Loc: HO.HMGCX ? Attending Nick Weir DRY CANS BACK TENDER ? Ordering Physician: Jade Weir ?? Date of Service: 08/23/24 ?? Procedure(s): XR KUB ?? Accession Number(s): [id number] ? cc: Analisa Hansen MD; Jade Weir DRY CANS BACK TENDER ? EXAMINATION: ?? XR ABDOMEN KUB ? CLINICAL INDICATION: ?? R10.9 - Unspecified abdominal pain ? COMPARISON: ?? CT abdomen pelvis 04/04/2017. ? TECHNIQUE: ?? AP view of the abdomen. ? FINDINGS: ?? Minimal scattered stool in the right colon. There is no bowel ?? distention. No radiopaque renal, gallbladder or bladder calculi. ?? Scattered phleboliths in the pelvis. There is no organomegaly. There is ?? mild degenerative changes at the L5-S1 disc level. ? XR/XR KUB ?? IMPRESSION: ?? No acute process seen. ? Electronically signed by: ??Abdiel Sellers MD ??08/23/2024 11:26 AM EDT RP ? Dictated By: ?Abdiel Sellers MD ? Signed By: ?<Electronically signed by Abdiel Sellers MD in OV> ?08/23/24 1126 ? DD/ 1057 ? TD/TT: 08/23/24 1102 ? Cement Paver: MSM ? Procedure Note Dmitri Flynn - 08/23/2024 [facility] [address] [place] [address] [place] [address] XRay Report Signed Patient: Boy Steen MR#: [id number] : 1975Acct:[id number] Age/Sex: 48 / MADM Date: 08/23/24 Loc: HO.HMGCX Attending Dr: Jade Weir DRY CANS BACK TENDER Ordering Physician: Jade Weir Date of Service: 08/23/24 Procedure(s): XR KUB Accession Number(s): [id number] cc: Analisa Hansen MD; Jade Weir EXAMINATION: XR ABDOMEN KUB CLINICAL INDICATION: R10.9 - Unspecified abdominal pain COMPARISON: CT abdomen pelvis 04/04/2017. TECHNIQUE: AP view of the abdomen. FINDINGS: Minimal scattered stool in the right colon. There is no bowel distention. No radiopaque renal, gallbladder or bladder calculi. Scattered phleboliths in the pelvis. There is no organomegaly. There is mild degenerative changes at the L5-S1 disc level. XR/XR KUB IMPRESSION: No acute process seen. Electronically signed by: Abdiel Sellers MD 08/23/2024 11:26 AM EDT RP Dictated By: Abdiel Sellers MD Signed By: <Electronically signed by Abdiel Sellers MD in OV> 08/23/24 1126 DD/ 1057 TD/TT: 08/23/24 1102 Cement Paver: [place] [facility] External Provider IMG XR PROCEDURES Final Result documented in this encounter Visit Diagnoses Not on filedocumented in this encounter Additional Health Concerns Assessment Noted Time PHQ-9 Depression Total Score: 0 05/23/19 24 11:05 AM EST documented as of this encounter Care Teams Labor Training Manager Relationship Specialty Start Date End Date Analisa Hansen MD [address] [place] [address] PCP - General Family Medicine 03/07/19 documented as of this encounter
--- OUTSIDE RECORDS SUMMARY | 2024-08-23 11:58 | XMS_ITS | Encounter Summary ---
Author Organization [employer] Address [address] [facility] 7t [place] [address] Care Team Providers Care Assistant Attorney General Name Role Phone Analisa Hansen MD Primary Care Provide r Reason for Visit * Reason Comments Med Change Request Encounter Details Date Type Department Care Team ([facility] st Contact Info) Description 05/09/2024 Refill [facility] MEDICINE [address] [place], [place] [phone] Analisa Hansen MD [address] [place], [place] [phone] Class 2 severe obesity with serious comorbidity [...] 11/06/2024 1:00 PM EDT Office Visit [facility] ADULT DENTAL [address] [place] [address] EsmeDevonLoly [address] [place] [address] documented as of this encounter Visit Diagnoses Diagnosis Class 2 severe obesity with serious comorbidity and body mass index (BMI) of 38.0 to 38.9 in adult, unspecified obesity type (CMS/HCC) documented in this encounter Additional Health Concerns Assessment Noted Time PHQ-9 Depression Total Score: 0 05/23/19 24 11:05 AM EST documented as of this encounter Care Teams Assistant Attorney General Relationship Specialty Start Date End Date Analisa Hansen MD [address] [place] [address] PCP - General Family Medicine 03/07/19 documented as of this encounter
--- OUTSIDE RECORDS SUMMARY | 2024-08-23 11:58 | XMS_ITS | Encounter Summary ---
Author Organization [employer] Address [address] [facility] 7t [place] [address] Care Team Providers Care Supervisory Clerk Name Role Phone Analisa Hansen MD Primary Care Provide r Reason for Visit * Reason Comments Med Refill Encounter Details Date Type Department Care Team (Late st Contact Info) Description 12/29/2022 Refill [facility] [address] [place] [address] Victoria Gonsalves, ANP [address] [place] [address] Shortness of breath Social History Tobacco Use [...] Description 11/06/2024 1:00 PM EDT Office Visit [facility] ADULT DENTAL [address] [place] [address] Loly Victoria [address] [place] [address] documented as of this encounter Visit Diagnoses Diagnosis Shortness of breath documented in this encounter Additional Health Concerns Assessment Noted Time PHQ-9 Depression Total Score: 12 023 11:55 AM EDT documented as of this encounter Care Teams Supervisory Clerk Relationship Specialty Start Date End Date Analisa Hansen MD [address] [place] [address] PCP - General Family Medicine 03/07/19 documented as of this encounter
--- OUTSIDE RECORDS SUMMARY | 2024-08-23 11:58 | XMS_ITS | Encounter Summary ---
Author Organization [employer] Address [address] [facility] 7t [place] [address] Care Team Providers Care Food Safety Scientist Name Role Phone Analisa Hansen MD Primary Care Provide r Reason for Visit * Reason Comments Med Refill Encounter Details Date Type Department Care Team (Late st Contact Info) Description 10/26/2022 Refill [facility] MEDICINE [address] [place], [place] [phone] Analisa Hansen MD [address] [place] [address] Social History Tobacco Use Types Packs/Day Years [...] Description 11/06/2024 1:00 PM EDT Office Visit [facility] ADULT DENTAL [address] [place] [address] Loly Victoria [address] [place] [address] documented as of this encounter Visit Diagnoses Not on filedocumented in this encounter Additional Health Concerns Assessment Noted Time PHQ-9 Depression Total Score: 12 023 11:55 AM EDT documented as of this encounter Care Teams Food Safety Scientist Relationship Specialty Start Date End Date Analisa Hansen MD [address] [place] [address] PCP - General Family Medicine 03/07/19 documented as of this encounter
--- OUTSIDE RECORDS SUMMARY | 2024-08-23 11:58 | XMS_ITS | Encounter Summary ---
Author Organization [employer] Address [address] [facility] 7t [place] [address] Care Team Providers Care Hand Bookbinder Name Role Phone Analisa Hansen MD Primary Care Provide r Reason for Visit * Reason Comments Med Change Request Encounter Details Date Type Department Care Team ([facility] st Contact Info) Description 05/27/2024 Refill [facility] MEDICINE [address] [place], [place] [phone] Analisa Hansen MD [address] [place], [place] [phone] Class 2 severe obesity with serious comorbidity [...] Description 11/06/2024 1:00 PM EDT Office Visit [facility] ADULT DENTAL [address] [place] [address] EsmeDevonLoly [address] [place] [address] documented as of this encounter Visit Diagnoses Diagnosis Class 2 severe obesity with serious comorbidity and body mass index (BMI) of 38.0 to 38.9 in adult, unspecified obesity type (CMS/HCC) documented in this encounter Additional Health Concerns Assessment Noted Time PHQ-9 Depression Total Score: 0 05/23/19 24 11:05 AM EST documented as of this encounter Care Teams Hand Bookbinder Relationship Specialty Start Date End Date Analisa Hansen MD [address] [place] [address] PCP - General Family Medicine 03/07/19 documented as of this encounter
--- OUTSIDE RECORDS SUMMARY | 2024-08-23 11:58 | XMS_ITS | Encounter Summary ---
Author Organization [employer] Address [address] [facility] 7t [place] [address] Care Team Providers Care Food Safety Manager Name Role Phone Analisa Hansen MD Primary Care Provide r Reason for Visit * Reason Comments Med Refill Encounter Details Date Type Department Care Team ([facility] st Contact Info) Description 02/28/2023 Refill [facility] [address] [place], [place] [phone] Emil Aparicio, DMD [address] [place] [address] Dental caries Social History Tobacco Use Types [...] Description 11/06/2024 1:00 PM EDT Office Visit [facility] [address] [place] [address] Esme, Loly [address] [place] [address] documented as of this encounter Visit Diagnoses Diagnosis Dental caries Unspecified dental caries documented in this encounter Additional Health Concerns Assessment Noted Time PHQ-9 Depression Total Score: 12 023 11:55 AM EDT documented as of this encounter Care Teams Food Safety Manager Relationship Specialty Start Date End Date Analisa Hansen MD [address] [place] [address] PCP - General Family Medicine 03/07/19 documented as of this encounter
--- OUTSIDE RECORDS SUMMARY | 2024-08-23 11:58 | XMS_ITS | Encounter Summary ---
Author Organization [employer] Address 75 [facility] 7t [place] [address] Care Team Providers Care Marine Plumber Name Role Phone Analisa Hansen MD Primary Care Provide r Reason for Visit * Reason Onset Date Comments Med Change Request Prior Authorization 05/09/2024 [facility]MA[facility] dickey Encounter Details Date Type Department Care Team (Late st Contact Info) Description 05/09/2024 Refill [facility] [address] [place] [address] Analisa Hansen MD 230 [place], [place] [phone] Class 2 severe obesity with serious comorbidity [...] Office Visit [facility] ADULT DENTAL [address] [place] [address] Esme, Loly [address] [place] [address] documented as of this encounter Visit Diagnoses Diagnosis Class 2 severe obesity with serious comorbidity and body mass index (BMI) of 38.0 to 38.9 in adult, unspecified obesity type (CMS/HCC) documented in this encounter Additional Health Concerns Assessment Noted Time PHQ-9 Depression Total Score: 0 05/23/19 24 11:05 AM EST documented as of this encounter Care Teams Marine Plumber Relationship Specialty Start Date End Date Analisa Hansen MD 230 [facility] [place] [address] PCP - General Family Medicine 03/07/19 documented as of this encounter
--- OUTSIDE RECORDS SUMMARY | 2024-08-23 11:58 | XMS_ITS | Encounter Summary ---
Author Organization [employer] Address [address] [facility] 7t [place] [address] Care Team Providers Care Director Operations Broadcast Name Role Phone Analisa Hansen MD Primary Care Provide r Encounter Details Date Type Department Care Team (Late st Contact Info) Description 05/03/2023 Abstract [facility] ADULT [facility] [address] [facility] [address] Matt Kaplan, LELIA [address] [place] [address] Social History Tobacco Use Types Packs/Day Years [...] Description 11/06/2024 1:00 PM EDT Office Visit [facility] ADULT DENTAL 230 [place] [address] EsmeDevonLoly 230 [place] [address] documented as of this encounter Visit Diagnoses Not on filedocumented in this encounter Additional Health Concerns Assessment Noted Time PHQ-9 Depression Total Score: 12 023 11:55 AM EDT documented as of this encounter Care Teams Director Operations Broadcast Relationship Specialty Start Date End Date Analisa Hansen MD 230 [place] [address] PCP - General Family Medicine 03/07/19 documented as of this encounter
--- OUTSIDE RECORDS SUMMARY | 2024-08-23 11:58 | XMS_ITS | Encounter Summary ---
Author Organization [employer] Address [address] [facility] 7t [place] [address] Care Team Providers Care Foreman/Pile Driving And Erection Name Role Phone Analisa Hansen MD Primary Care Provide r Reason for Visit * Reason Comments Med Change Request Encounter Details Date Type Department Care Team ([facility] st Contact Info) Description 05/09/2024 Refill [facility] [address] [place], [place] [phone] Analisa Hansen MD 230 [place], [place] [phone] Class 2 severe obesity with serious comorbidity [...] Description 11/06/2024 1:00 PM EDT Office Visit [facility] ADULT DENTAL [address] [place] [address] EsmeDevonLoly [address] [place] [address] documented as of this encounter Visit Diagnoses Diagnosis Class 2 severe obesity with serious comorbidity and body mass index (BMI) of 38.0 to 38.9 in adult, unspecified obesity type (CMS/HCC) documented in this encounter Additional Health Concerns Assessment Noted Time PHQ-9 Depression Total Score: 0 05/23/19 24 11:05 AM EST documented as of this encounter Care Teams Foreman/Pile Driving And Erection Relationship Specialty Start Date End Date Analisa Hansen MD [address] [place] [address] PCP - General Family Medicine 03/07/19 documented as of this encounter
--- OUTSIDE RECORDS SUMMARY | 2024-08-23 11:58 | XMS_ITS | Encounter Summary ---
Author Organization [employer] Address [address] [facility] 7t [place] [address] Care Team Providers Care Chief Marketing Officer Name Role Phone Analisa Hansen MD Primary Care Provide r Encounter Details Date Type Department Care Team (Late st Contact Info) Description 05/23/2022 Orders Only [facility] [address] [place], [place] [phone] Vandana Cm MD [address] [place] [address] Blurry vision (Primary Dx) Social History Tobacco [...] 1:00 PM EDT Office Visit [facility] ADULT [facility] [address] [place], [place] [phone] Loly Victoria [address] [place] [address] documented as of this encounter Visit Diagnoses Diagnosis Blurry vision- Primary Other specified visual disturbances documented in this encounter Care Teams Chief Marketing Officer Relationship Specialty Start Date End Date Analisa Hansen MD [address] [place] [address] PCP - General Family Medicine 03/07/19 documented as of this encounter
--- OUTSIDE RECORDS SUMMARY | 2024-08-23 11:58 | XMS_ITS | Encounter Summary ---
Author Organization [employer] Address 75 [facility] 7t [place] [address] Care Team Providers Care University Relations Vice President Name Role Phone Analisa Hansen MD Primary Care Provide r Reason for Visit * Reason Comments Med Change Request Encounter Details Date Type Department Care Team ([facility] st Contact Info) Description 05/29/2024 Refill [facility] [address] [place], [place] [phone] Analisa Hansen MD 230 [place], [place] [phone] Class 2 severe obesity with serious comorbidity [...] [facility] [address] [place] [address] EsmeDevonLoly [address] [place] [address] documented as of this encounter Visit Diagnoses Diagnosis Class 2 severe obesity with serious comorbidity and body mass index (BMI) of 38.0 to 38.9 in adult, unspecified obesity type (CMS/HCC) documented in this encounter Additional Health Concerns Assessment Noted Time PHQ-9 Depression Total Score: 0 05/23/19 24 11:05 AM EST documented as of this encounter Care Teams University Relations Vice President Relationship Specialty Start Date End Date Analisa Hansen MD [address] [place] [address] PCP - General Family Medicine 03/07/19 documented as of this encounter
--- OUTSIDE RECORDS SUMMARY | 2024-08-23 11:58 | XMS_ITS | Clinical Summary ---
Author Organization [employer] Address [address] [facility] 7t [place] [address] Care Team Providers Care Boat Loader Helper Name Role Phone Analisa Hansen MD Primary [...] Sod Fluoride-Potassi um Nitrate 1.1-5 % paste Odd teeth for 2 minutes, morning and night. [...] cardiovascular exercise Patient will be refer to supervisor boiler repair Assessment & Plan (10/26/2022 11:10 AM EDT): [...] bariatric specialist I advise to come to [facility] when pain is present, also [...] Encounters Date Type Department Care Team Description 08/23/2024 Orders Only [facility] External Provider, [facility] 08/22/2024 Telephone [facility] [address] [place] [phone] Analisa Hansen MD 08/21/2024 Refill [facility] [address] [place] [phone] Analisa Hansen MD Essential hypertension 07/09/2024 Telephone [facility] [address] [place] [address] Analisa Hansen MD Prior Authorization ([facility] Request: [employer] ) 06/25/2024 3:15 PM EST Telemedicine [facility] [address] [place] [address] Analisa Hansen MD Class 2 severe obesity due to excess calories with serious comorbidity and body mass index (BMI) of 36.0 to 36.9 in adult ([facility]) (Primary Dx); Dyslipidemia; Sinus tachycardia; Class 2 severe obesity with serious comorbidity and body mass index (BMI) of 38.0 to 38.9 in adult, unspecified obesity type ([facility]) 06/25/2024 Travel 05/29/2024 Refill [facility] [address] [place] [address] Analisa Hansen MD Class 2 severe obesity with serious comorbidity and body mass index (BMI) of 38.0 to 38.9 in adult, unspecified obesity type ([facility]) 05/27/2024 Refill [facility] [address] [place], [place] [phone] Analisa Hansen MD Class 2 severe obesity with serious comorbidity and body mass index (BMI) of 38.0 to 38.9 in adult, unspecified obesity type ([facility]) from Last 3 Months Immunizations Name Administration [...] Description 11/06/2024 1:00 PM EDT Office Visit [facility] ADULT DENTAL [address] [place] [address] Loly Victoria [address] [place] [address] Health Maintenance Due Date Last Done Comments [...] of 2) 10/14/2027 Lipid Panel 11/22/2028 11/23/2023, 08/04/2023, 02/08/2023, Additional history exists RSV Patients and [...] 2 VIEWS Routine 08/23/2024 10:57 AM EDT PROPHYLAXIS - ADULT Routine 05/03/2024 3 :00 [...] Recently Relevant to Health Maintenance Results * XR KUB and Upright 2 Views (08/23/2024 10:57 AM EDT) Anatomical Region Laterality Modality Radiographic Yesika ging 08/23/2024 10:5 7 AM EDT Narrative 08/23/2024 11:29 AM EDT ? [facility] ?[address] ? [place] [address] ?XRay Report ? Signed ? Patient: Efraín Chirag,Boy ? MR#: [id number] ? : 1975 ?Acct:[id number] ? Age/Sex: 48 / M ?ADM Date: 08/23/24 ? Loc: HO.HMGCX ? Attending Dr: Jade FROST ? Ordering Physician: Jade Weir ?? Date of Service: 08/23/24 ?? Procedure(s): XR KUB ?? Accession Number(s): [id number] ? cc: Analisa Hansen MD; Jade Weir ? EXAMINATION: ?? XR ABDOMEN KUB ? [...] 11:26 AM EDT RP ? Dictated By: ?Verito,Abdiel S MD ? Signed By: ?<Electronically signed by Abdiel S MD Verito in OV> ?08/23/24 1126 ? DD/ 1057 ? TD/TT: 08/23/24 1102 ? Ortho Nurse: MSM ? Procedure Note Dmitri Flynn - 08/23/2024 [facility] [address] [place] [address] XRay Report Signed Patient: Boy Steen MR#: [id number] : 1975Acct:[id number] Age/Sex: 48 / MADM Date: 08/23/24 Loc: HO.HMGCX Attending Dr: Jade FROST Ordering Physician: Jade Weir Date of Service: 08/23/24 Procedure(s): XR KUB Accession Number(s): [id number] cc: Analisa Hansen MD; Jade Weir EXAMINATION: [...] Abdiel Sellers MD 08/23/2024 11:26 AM EDT Dictated By: Abdiel Sellers MD Signed By: <Electronically signed by Abdiel Sellers MD in OV> 08/23/24 1126 DD/ 1057 TD/TT: 08/23/24 1102 Ortho Nurse: [facility] External Provider IMG XR PROCEDURES Final Result * (ABNORMAL) Lipid Panel with Reflex to Direct LDL (11/23/2023 9:36 AM EDT) Triglycerides 402(H) <150 mg/dL [facility] Comment:Desirable Triglyceri de: less than 150 mg/dLBorderline High Triglyceride 150-199 mg/dLHigh Triglyceride: 200-499 mg/dLVery High Triglyceride: greater than or equal to 5OO mg/dL Cholesterol 132 <200 mg/dL [facility] Comment:Desirable Cholestero l: less than 200 mg/dLBorderline High Cholesterol: 200-239 mg/dLHigh Cholesterol: greater than 239 mg/dL LDL Cholesterol Calculated TNP <100 mg/dL [facility] Comment:Unable to calculate the LDL. The formula of Friedwald,Garcia, and Sabra is only valid if the triglycerides areless than 400 mg/dl. HDL Cholesterol 21(L) >40 mg/dL [facility] Comment:Desirable HDL: great er than 40 mg/dL Note: This HDL assay may give artificially low results in patients with liver disease. Blood 11/23/2023 9:36 AM EDT 11/23/2023 11:03 AM EDT Analisa Cline MD LAB BLOOD ORDERABLES Final Result [facility] [address] [place] [address] [phone] * Cologuard?? colon cancer screening (02/10/2023 1:30 PM EDT) Cologuard Result Negative Negative 02/19/20 11:27 AM EDT [facility] (CLIA #:[id number]) Comment: NEGATIVE TEST RESULT. A negative Cologuard [...] cancer. ??Following a negative Cologuard result, the [place] [employer] Society and U.S. Multi-Society Task Force screening guidelines recommend a Cologuard re-screening interval of 3 years. References: [place] [employer] Guideline for Colorectal Cancer Screening: https://www.cancer.org/cancer/oquaf-dzolml-dbpkjg/ppjyuvpys-nrpplbsoq-qsxcqon/ac s-rec ommendations.html.; Kirill DK, Chandana MEDEIROS, Edith CastilloK, Colorectal Cancer Screening: Recommendations for Physicians and Patients from the U.S. Multi-Society Task Force on Colorectal Cancer Screening , Am J Gastroenterology 2017; 112:7979-6025. TEST DESCRIPTION: Composite algorithmic analysis of stool [...] Antonio et al, N Engl J Med 2014;370(14):7223-2191.) Cologuard may produce a false negative or false positive result (no colorectal cancer or precancerous polyp present at colonoscopy follow up). A negative Cologuard test result does not guarantee the absence of CRC or advanced adenoma (pre-cancer). The current Cologuard screening interval is every 3 years. ([place] [employer] and U.S. Multi-Society Task Force). Cologuard performance data in a 10,000 patient pivotal study using colonoscopy as the reference method can be accessed at the following location: www.[employer].Zapa/results. Additional description of the Cologuard test process, warnings and precautions can be found at www.cologuard.Zapa. Stool specimen (specimen) 02/10/2023 1:30 PM EDT 02/13/2023 11:32 AM EDT Analisa Cline MD LAB MOLECULAR DIAGNOS TICS ORDERABLES Final Result [facility] (CLIA #:[id number]) [address] [place] [address], * HIV Ab/Ag ([facility]) (02/08/2023 8:28 AM EDT) HIV AB/AG Nonreactive Nonreactive [facility] Comment:HIV-1 p24 Ag and/or HIV-1/HIV-2 Ab not detected.A test result that is nonreactive does not exclude thepossibility of exposure to or infection with HIV-1 and/orHIV-2. Nonreactive results in this assay for individualswith prior exposure to HIV-1 and/or HIV-2 may be due toantigen and antibody levels that are below the limit ofdetection of this assay.The [employer] HIV Ag/Ab Combo assay result andsupplemental assay results should be interpreted inconjunction with the patient's clinical presentation,history and other laboratory results. If the results areinconsistent with clinical evidence, additional testing issuggested to confirm the result. 02/08/2023 8:28 AM EDT 02/08/2023 11:04 AM EDT us Analisa Cline MD LAB BLOOD ORDERABLES Final Result Performing Organization Address City/[facility]/ZIP Co de Phone Number [facility] [address] [place] [phone] * Hepatitis C Antibody with Reflex to HCV, RNA, Quantitative, Real-Time PCR (02/08/2023 8:28 AM EDT) Hepatitis C Antibody Nonreactive Nonreactive [facility] Comment:Antibodies to HCV no t detected; does not exclude early acuteHCV infection. Blood Venous blood specimen / Unknown 02/08/2023 8:28 AM EDT 02/08/2023 11:04 AM EDT us Analisa Cline MD LAB BLOOD ORDERABLES Final Result [facility] [address] [place] [address] [phone] from Last 3 Months or Most Recently Relevant to Health Maintenance Insurance [facility] < [address] [place] [id number] [facility] [place] [address] Care Teams Boat Loader Helper Relationship Specialty Start Date End Date Analisa Hansen MD [address] [place] [phone] PCP - General Family Medicine 03/07/19
--- OUTSIDE RECORDS SUMMARY | 2024-08-23 11:58 | XMS_ITS | Encounter Summary ---
Author Organization [employer] Address 75 [facility] 7t [place] [address] Care Team Providers Care Parking Enforcement Specialist Name Role Phone Analisa Hansen MD Primary Care Provide r Encounter Details Date Type Department Care Team ([facility] st Contact Info) Description 08/22/2024 Telephone [facility] MEDICINE [address] [place], [place] [phone] Analisa Hansen MD [address] [place], [place] [phone] Social History Tobacco Use Types Packs/Day Years [...] away, he will have to come to [facility] walk in and that schedule is [...] Description 11/06/2024 1:00 PM EDT Office Visit [facility] ADULT DENTAL [address] [place] [address] Loly Victoria [address] [place] [address] documented as of this encounter Visit Diagnoses Not on filedocumented in this encounter Additional Health Concerns Assessment Noted Time PHQ-9 Depression Total Score: 0 05/23/19 24 11:05 AM EST documented as of this encounter Care Teams Parking Enforcement Specialist Relationship Specialty Start Date End Date Analisa Hansen MD [address] [place] [address] PCP - General Family Medicine 03/07/19 documented as of this encounter
--- OUTSIDE RECORDS SUMMARY | 2024-08-23 11:58 | XMS_ITS | Encounter Summary ---
Author Organization [employer] Address [address] [facility] 7t [place] [address] Care Team Providers Care Crocheter Name Role Phone Analisa Hansen MD Primary Care Provide r Reason for Visit * Reason Onset Date Comments new appt 07/28/2023 Encounter Details Date Type Department Care Team (Late st Contact Info) Description 07/28/2023 Telephone [facility] ADULT DENTAL [address] [place] [address] Matt Kaplan, DMD [address] [place] [address] new appt Social History Tobacco Use Types [...] Description 11/06/2024 1:00 PM EDT Office Visit [facility] ADULT DENTAL [address] [place], [place] [phone] Esme, Loly [address] [place] [address] documented as of this encounter Visit Diagnoses Not on filedocumented in this encounter Additional Health Concerns Assessment Noted Time PHQ-9 Depression Total Score: 0 05/23/19 24 11:05 AM EST documented as of this encounter Care Teams Crocheter Relationship Specialty Start Date End Date Analisa Hansen MD [address] [place], [place] [phone] PCP - General Family Medicine 03/07/19 documented as of this encounter
--- OUTSIDE RECORDS SUMMARY | 2024-08-23 11:58 | XMS_ITS | Encounter Summary ---
Author Organization [employer] Address [address] [facility] 7t [place] [address] Care Team Providers Care Associate Professor Of Economics Name Role Phone Analisa Hansen MD Primary Care Provide r Reason for Visit * Reason Comments Med Refill Encounter Details Date Type Department Care Team ([facility] st Contact Info) Description 04/01/2023 Refill [facility] ADULT DENTAL [address] [place], [place] [phone] Emil Aparicio, DMD [address] [place] [address] Dental caries Social History Tobacco Use Types [...] Description 11/06/2024 1:00 PM EDT Office Visit [facility] ADULT DENTAL [address] [place] [address] Esme, Loly [address] [place] [address] documented as of this encounter Visit Diagnoses Diagnosis Dental caries Unspecified dental caries documented in this encounter Additional Health Concerns Assessment Noted Time PHQ-9 Depression Total Score: 12 023 11:55 AM EDT documented as of this encounter Care Teams Associate Professor Of Economics Relationship Specialty Start Date End Date Analisa Hansen MD [address] [place] [address] PCP - General Family Medicine 03/07/19 documented as of this encounter
--- OUTSIDE RECORDS SUMMARY | 2024-08-23 11:58 | XMS_ITS | Encounter Summary ---
Author Organization [employer] Address 75 [facility] 7t [place] [address] Care Team Providers Care Vp Cardiovascular Service Line Name Role Phone Analisa Hansen MD Primary Care Provide r Encounter Details Date Type Department Care Team ([facility] Contact Info) Description 08/30/2022 Abstract [facility] ADULT DENTAL [address] [place] [address] Matt Kaplan, LELIA [address] [place] [address] Social History Tobacco Use Types Packs/Day Years [...] Upcoming Encounters Date Type Department Care Team ([facility] Contact Info) Description 11/06/2024 1:00 PM EDT Office Visit [facility] ADULT DENTAL [address] [place] [address] Loly Victoria [address] [place] [address] documented as of this encounter Visit Diagnoses Not on filedocumented in this encounter Care Teams Vp Cardiovascular Service Line Relationship Specialty Start Date End Date Analisa Hansen MD [address] [place] [address] PCP - General Family Medicine 03/07/19 documented as of this encounter
--- OUTSIDE RECORDS SUMMARY | 2024-08-23 11:58 | XMS_ITS | Encounter Summary ---
Author Organization [employer] Address 75 [facility] 7t [place] [address] Care Team Providers Care Liquid Chlorine Operator Name Role Phone Analisa Hansen MD Primary Care Provide r Reason for Visit * Reason Comments Med Refill Encounter Details Date Type Department Care Team ([facility] st Contact Info) Description 01/29/2023 Refill [facility] ADULT DENTAL [address] [place] [address] Matt Kaplan, DMD [address] [place] [address] Dental caries Social History Tobacco Use Types [...] Description 11/06/2024 1:00 PM EDT Office Visit [facility] ADULT DENTAL [address] [place] [address] Esme, Loly [address] [place] [address] documented as of this encounter Visit Diagnoses Diagnosis Dental caries Unspecified dental caries documented in this encounter Additional Health Concerns Assessment Noted Time PHQ-9 Depression Total Score: 12 023 11:55 AM EDT documented as of this encounter Care Teams Liquid Chlorine Operator Relationship Specialty Start Date End Date Analisa Hansen MD [address] [place] [address] PCP - General Family Medicine 03/07/19 documented as of this encounter
--- OUTSIDE RECORDS SUMMARY | 2024-08-23 11:58 | XMS_ITS | Encounter Summary ---
Author Organization [employer] [facility] Address 75 [facility] 7t [place] [address] Care Team Providers Care Ophthalmic Technologist Name Role Phone Analisa Hansen MD Primary Care Provide r Reason for Visit * Reason Comments Med Refill Encounter Details Date Type Department Care Team (Late st Contact Info) Description 08/29/2022 Refill [facility] MEDICINE [address] [place] [address] Stephanie Segal FNP [address] [place] [address] Vitamin D deficiency Social History Tobacco Use [...] Description 11/06/2024 1:00 PM EDT Office Visit [facility] ADULT DENTAL [address] [place] [address] Loly Victoria [address] [place] [address] documented as of this encounter Visit Diagnoses Diagnosis Vitamin D deficiency documented in this encounter Care Teams Ophthalmic Technologist Relationship Specialty Start Date End Date Analisa Hansen MD [address] [place] [address] PCP - General Family Medicine 03/07/19 documented as of this encounter
--- OUTSIDE RECORDS SUMMARY | 2024-08-23 11:58 | XMS_ITS | Encounter Summary ---
Author Organization [employer] Address [address] [facility] [address] [place] [address] Care Team Providers Care Acid Conditioning Worker Name Role Phone Analisa Hansen MD Primary Care Provide r Encounter Details Date Type Department Care Team ([facility] st Contact Info) Description 05/09/2024 Orders Only [facility] MEDICINE [address], [place] [phone] Analisa Hansen MD [address] [place], [place] [phone] Social History Tobacco Use Types Packs/Day Years [...] Description 11/06/2024 1:00 PM EDT Office Visit [facility] ADULT DENTAL [address] [place] [address] Esme, Loly [address] [place] [address] documented as of this encounter Visit Diagnoses Not on filedocumented in this encounter Additional Health Concerns Assessment Noted Time PHQ-9 Depression Total Score: 0 05/23/19 24 11:05 AM EST documented as of this encounter Care Teams Acid Conditioning Worker Relationship Specialty Start Date End Date Analisa Hansen MD [address] [place] [address] PCP - General Family Medicine 03/07/19 documented as of this encounter
== END 2024-08-23 09:54 | disposition home or self-care (01) ==
LOC: HO.HMGCX 09:53
PROVIDERS: PCP Internal Medicine; Visit Provider Nurse Practitioner Family
DX: R10.9 Unspecified abdominal pain (principal)
CPT/HCPCS: 74018; 81003; 99212

== ENCOUNTER → 2024-08-23 10:57 | Outpatient (BNV) | payer OTHER, SELFPAY | PROVIDERS: PCP Internal Medicine; Visit Provider Radiology Diagnostic Radiology | DX: R10.9 Unspecified abdominal pain (principal) | CPT/HCPCS: 74018 ==

== ENCOUNTER 2024-09-12 16:32 | Outpatient (REF) | payer OTHER, SELFPAY ==
--- NOTE | ~2024-09-12 | MR_ITS ---
EXAMINATION: MR LUMBAR SPINE WITHOUT CONTRAST CLINICAL INFORMATION: Worsening low back pain. COMPARISON: September 27, 2023. TECHNIQUE: MRI of the lumbar spine was obtained using routine sequences without contrast. FINDINGS: Last rib-bearing vertebra labeled T12. Decreased bone marrow signal in all sequences. No bone marrow STIR signal abnormality. There is normal alignment. The conus medullaris ends at inferior endplate of L1 with normal signal. There is less than 1 mm cylindrical shaped intrinsic hyperintense T1 signal within the filum terminalis from L1-2 to S1-2. Prominent epidural fat at L5-S1 and sacrum. Decreased disc signal in the posterior aspect of L2-3, L4-5 and L5-S1 levels. T12-L1: No herniated disc. No neuroforamina stenosis. L1-2: No herniated disc. No neuroforamina stenosis. L2-3: Central and slightly right subarticular herniated disc resulting in ventral indentation to the thecal sac. No compression upon neural elements. No neuroforamina stenosis. L3-4: No herniated disc. No neuroforamina stenosis. L4-5: Broad-based disc bulging. Facet joint hypertrophy. Reduced AP diameter of the thecal sac abutting the L5 nerve roots on the lateral recesses. Bilateral neuroforamina narrowing encroaching the L4 exiting nerve roots. Bilateral facet joint hypertrophy. L5-S1: Broad-based disc bulging abutting the S1 nerve roots. Facet joint hypertrophy. Bilateral neuroforamina narrowing encroaching the L5 exiting nerve roots.. No prevertebral compartment hematoma, mass or fluid collection. MR/MR lumbar spine wo con IMPRESSION: Central and right subarticular herniated disc at L2-3 without compression upon neural elements. Spondylosis L4-5 and L5-S1 resulting in mild central spinal canal stenosis and bilateral neuroforamina stenosis encroaching the exiting nerve roots. Bone marrow signal abnormality suggesting calcium metabolic disorders versus lymphoproliferative disorders. Electronically signed by: Austen Cortez MD 09/13/2024 07:34 AM EDT
== END 2024-09-12 16:33 | disposition home or self-care (01) ==
LOC: HO.MRI 16:32
PROVIDERS: Visit Provider Internal Medicine
DX: M47.816 Spondylosis without myelopathy or radiculopathy, lumbar region (principal)
CPT/HCPCS: 72148

== ENCOUNTER → 2024-09-12 16:35 | Outpatient (BNV) | payer OTHER, SELFPAY | PROVIDERS: Visit Provider Radiology Diagnostic Radiology | DX: M51.26 Other intervertebral disc displacement, lumbar region (principal); M47.817 Spondylosis without myelopathy or radiculopathy, lumbosacral region; M99.63 Osseous and subluxation stenosis of intervertebral foramina of lumbar region | CPT/HCPCS: 72148 ==

== ENCOUNTER 2024-09-23 10:56 | Outpatient (AMB) | payer OTHER, SELFPAY ==
--- NOTE | 2024-09-23 11:07 | HO.SPINEOV ---
Intake Visit Reasons: lumbar radiculopathy Intake Note: Mr. Efraín Beard is here today c/o low back pain. Aeronautical Drafter Required: No Allergies No Known Drug Intolerances Allergy (Mild, Verified 09/23/24 11:07) UNKNOWN Assessment & Plan Assessment & Plan (1) Lumbago without sciatica: Code(s): M54.50 - Low back pain, unspecified Category: Medical Plan Dear Dr. Cline, Thank you for referring Boy to our office today. He is a pleasant 48 year old male who comes in today for evaluation of intermittent low back pain. He identifies an initial inciting incident of a lifting accident while at work. 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 He was unable to walk without severe pain for a few days until this subsided. He had several what sound like low-grade flare-ups of this pain until about 2018, when he attempted to get up out of bed and felt a similar pop in his low back, followed by a pain that incapacitated him for several days. He has since recovered from this is well. When further describing his pain, he states he also is able to essentially replicate that severe low back pain if he stretches extensively 1st thing in the morning. However when the pain is incited via stretching it usually subsides fairly quickly. When describing the pain he points directly to his mid/upper lumbar spine. He states that the pain is well localized over the spine, and does not travel further down his back, or down his legs. He denies any numbness/tingling/burning associated with the pain. He denies any issues with ambulation or bowel/bladder. 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 In addition to this he has been taking naproxen and Flexeril to help mitigate his symptoms. PMH: Hypertension, anxiety, vitamin-D deficiency, sinus tachycardia, GERD, seasonal allergies, shortness of breath on exertion, obstructive sleep apnea on CPAP. Social hx: The patient does not smoke, reports no substance use. Medications: See [facility] list. Allergies: NKDA. Physical exam: The patient has 5/5 strength in his upper and lower extremities. He ambulates well without an antalgic or spastic gait. He has no significant sensational deficits on exam. He is able to rise from seated position without much difficulty, and gets up onto the examination table without issue. His reflexes are hypoactive bilaterally in the patella, but 2+ normal elsewhere. (-) bilateral straight leg raise, (-) Dexter's, (-) clonus. No obvious overlying ecchymosis or lesion over the skin of the lumbar spine. No pain to direct palpation of the lumbar spine. Imaging review: MRI of the lumbar spine completed here at [facility] shows a small posterior disc bulge at L2-3 causing no significant central canal or foraminal stenosis at this level. Impression: Boy is a pleasant 48-year-old male who comes in today for evaluation of longstanding low back pain with intermittent flare-ups over the years. He has a small posterior disc bulge at L2-3, that does not appear to be compressing any of the neuroanatomy at this level. His pain in his well localized to the midline of the spine. He does not have any pain to palpation over the spinous processes in the lumbar spine. I believe that his problem is likely to fold. He most likely he is becoming intermittently symptomatic from a disc herniation at L2-3 that may be recurring during symptomatic periods then resorbing over time. It is also likely that he has a musculoseketal component to his low back pain. I believe this patient would be best served via evaluation for potential injections at L2-3 by our colleagues in pain management. I will place the referral. He was encouraged to come back and see us if his pain significantly worsens or he begins to develop any lower extremity radicular symptoms. Thank you for allowing us to care for your patient. The total time spent with this visit with this patient was 47 minutes reviewing history, physical exam, MRI imaging review, and implementation of treatment plan or further diagnostic testing Alon Bay MD,PhD [facility] Orders: Referrals Pain Management Referral M54.50 - Low back pain, unspecified Coding Level of Care Code New Pt Level 4 (94559) Diagnoses Lumbago without sciatica M54.50
== END 2024-09-23 13:34 | disposition home or self-care (01) ==
LOC: HO.HNS 10:59
PROVIDERS: PCP Internal Medicine; Referring Provider Internal Medicine; Visit Provider Physician Assistant
DX: M54.50 Low back pain, unspecified (principal)
CPT/HCPCS: 99204

== ENCOUNTER → 2024-09-23 10:56 | Outpatient (BNVA) | payer OTHER, SELFPAY | PROVIDERS: PCP Internal Medicine; Referring Provider Internal Medicine; Visit Provider Physician Assistant | DX: M54.50 Low back pain, unspecified (principal) | CPT/HCPCS: 99202 ==

== ENCOUNTER 2024-10-10 12:42 | Emergency (ER) | payer OTHER, SELFPAY ==
[2024-10-10 12:44] VITALS: BP 139/76; PULSE 84; RESP 19; TEMP 36.6; O2SAT 98; BMI 38.0
--- NOTE | 2024-10-10 12:45 | ED.BACK ---
HPI - Back Pain/Injury General Chief Complaint: Back Pain/Injury Stated Complaint: Lower back and abd Pain Time Seen by Provider: 10/10/24 16:01 Source: patient Mode of arrival: ambulatory Limitations: no limitations History of Present Illness ED Provider: DR. Mahoney HPI Narrative: 48-year-old male with chronic back pain recently had lower back MRI which showed L2 -3 disc herniation, [facility] and referred to pain management that he is scheduled to have an appointment in 1 week patient presented for increased low back pain for the last 3 days, no weakness, no numbness, no urinary incontinence. No fever, no chills, no history of IV drug abuse. Patient use naproxen for his chronic back pain for the past 3 years. Related Data Home Medications ?Medication ?Instructions ?Recorded ?Confirmed cholecalciferol (vitamin D3) 25 25 mcg PO DAILY 09/02/20 06/18/24 mcg (1,000 unit) capsule citalopram 10 mg tablet 10 mg PO DAILY 09/02/20 06/18/24 omeprazole 20 mg capsule,delayed 20 mg PO DAILY@0630 09/02/20 06/18/24 release clonazepam 2 mg tablet 2 mg PO DAILY PRN Anxiety 04/26/21 06/18/24 bupropion HCl 75 mg tablet 75 mg PO BEDTIME 05/14/24 06/18/24 omega 6-ykg-vtg-fish oil 1,000 mg 1 cap PO DAILY 05/14/24 06/18/24 (120 mg-180 mg) capsule (Fish Oil) pravastatin 40 mg tablet 40 mg PO DAILY 05/14/24 06/18/24 Previous Rx's ?Medication ?Instructions ?Recorded fluticasone propionate 50 2 spray intranasal DAILY 30 days 01/25/23 mcg/actuation nasal #16 grams spray,suspension loratadine 10 mg tablet 10 mg PO DAILY for allergic 08/08/23 rhinitis #30 tabs propranolol 120 mg capsule,24 120 mg PO DAILY #90 caps 06/18/24 hr,extended release (Inderal LA) Allergies Allergy/AdvReac Type Severity Reaction Status Date / Time No Known Drug Intolerances Allergy Mild UNKNOWN Verified 10/10/24 12:45 Review of Systems Review of Systems: All other systems are reviewed and are negative Constitutional: Reports as per HPI and Reports no additional constitutional complaints Eyes: Reports as per HPI and Reports no additional eye complaints Reports system reviewed and no additional complaints, except as documented Cardiovascular: Reports as per HPI and Reports no additional cardiovascular complaints Respiratory: Reports as per HPI and Reports no additional respiratory complaints Gastrointestinal: Reports as per HPI and Reports no additional gastrointestinal complaints Genitourinary: Reports no additional female genitourinary complaints Musculoskeletal: Reports no additional musculoskeletal complaints Skin/Breast: Reports system reviewed and no additional complaints, except as docu Psychiatric: Reports no additional psychiatric complaints Endocrine: Reports no additional endocrine complaints Hematologic/Lymphatic: Reports no additional hematologic/lymphatic complaints Allergic/Immunologic: Reports no additional allergic/immunologic complaints Reports system reviewed and no additional complaints, except as documented and Reports Abnormal speech present [facility] Past Medical History Medical History Obesity (BMI 30-39.9) Essential hypertension Allergic rhinitis due to allergen Cough MARIAN on CPAP MARIAN (obstructive sleep apnea) Family History Family History Father Heart disease DM2 (diabetes mellitus, type 2) Heart murmur Social History Social History Household Members: None Housing: Apartment Do you presently have visiting nurse or other home services: No Alcohol intake: never Patient Tobacco Use Status: Never used Tobacco Advance Directives: No Advance Directives Information Provided: Yes Do you have a plan to hurt others: No Plan Physical Exam Vital Signs: Vital Signs: Last Vital Signs Temp 98 F 10/10/24 12:44 Pulse 83 10/10/24 14:42 Resp 18 10/10/24 14:42 BP 126/78 10/10/24 14:42 Pulse Ox 94 10/10/24 14:42 O2 Del Method Room Air 10/10/24 14:42 BMI result Body Mass Index 38.0 Vital signs have been reviewed and appear to be correct. Blood pressure elevated. Heart rate normal. Respiratory rate normal. Temperature normal. Oxygen saturation normal. Appearance: Alert. Oriented X3. No acute distress. Head: Normal external exam. Normocephalic. Atraumatic. No [place] signs noted. No raccoon eyes noted Eyes: PERRLA. EOMI. Conjunctiva and sclera normal. Eyelids normal. ENT: TM's Normal. Pharynx normal. Uvula midline. Moist mucous membranes. No trismus noted. No drooling noted. No muffled voice noted. Neck: Normal inspection. Neck supple. FROM. No adenopathy. Thyroid Normal. No meningeal signs. No neck mass noted. CVS: Normal heart rate and rhythm. Heart sound normal. No murmurs noted. Pulses normal throughout. Respiratory: No respiratory distress. Painless inspiration. Breath sounds normal. No wheezes/rales/rhonchi noted. Chest nontender. No accessory muscle usage noted or decreased air movement noted. Abdomen: Soft and nontender. Bowel sounds normal in all 4 quadrants. No distention noted. No organomegaly noted. No visible injury noted. Back: No CVA tenderness. Full range of motion noted. Skin: Skin warm and dry. Normal skin color. Normal skin turgor. No rashes/lesions/lacerations noted. Extremities: No lower extremity edema. Extremities exhibit normal range of motion. Extremities nontender. Neuro: Oriented X 3. Cranial nerve exam: II-XII are grossly intact No motor deficit. No sensory deficit. Reflexes normal. Course Course Course Narrative: This is a Rapid Medical Examination (RME) performed by Kandaec Hallman PA-C in triage. Full HPI, ROS, assessment and treatment plan per primary provider in the Main ED. Hx: 48 yo M here for evel of acute on chronic atraumatic back pain x3 d. no injury/trauma/heavy lifting. reports assoc diffuse abd pain that began this morning. no urinary sx. no back pain red flags. recent lumbar MRI on 09/12/24 shows herniated disc at L2/3. Plan: UA, pain meds Reevaluation(s) Reevaluation #1: Low back pain for 3 days with no neurological deficit known history of lumbar disc herniation scheduled to see pain management this week. Patient felt better with ibuprofen. Time: 16:14 Medical Decision Making Differential Diagnosis Differential Diagnoses: The differential diagnosis associated with the presentation includes (Lumbar radiculopathy, neurological deficit, abdominal pain, electrolyte derangement, severe anemia.) Admission/Observation Consideration of admission/observation: Escalation of care including admission/observation considered Lab Data MDM Lab Attestation statement: I reviewed the patient's lab results. Labs: Lab Results 10/10/24 Range/Units 14:18 Urine Color Yellow Urine Appearance Clear Urine pH 5.5 (5.0-9.0) Ur Specific [place] 1.025 (1.005-1.025) Urine Protein Negative (Neg-Trace) mg/dL Urine Glucose (UA) Negative (Negative) mg/dL Urine Ketones Trace (Negative) mg/dL Urine Blood Negative (Negative) Urine Nitrite Negative (Negative) Ur Leukocyte Esterase Negative (Negative) Discharge Plan Discharge Clinical Impression: Lumbar radiculopathy Patient Disposition: Home, Self-Care Instructions: Lumbar Radiculopathy (ED) Prescriptions: No Action loratadine 10 mg tablet 10 mg PO DAILY Qty: 30 5RF pravastatin 40 mg tablet 40 mg PO DAILY bupropion HCl 75 mg tablet 75 mg PO BEDTIME omega 5-xkg-wqv-fish oil [Fish Oil] 1,000 (120-180) mg Capsule 1 cap PO DAILY omeprazole 20 mg capsule,delayed release(DR/EC) 20 mg PO DAILY@0630 citalopram 10 mg tablet 10 mg PO DAILY cholecalciferol (vitamin D3) 25 mcg (1,000 unit) capsule 25 mcg PO DAILY clonazepam 2 mg tablet 2 mg PO DAILY PRN (Reason: Anxiety) fluticasone propionate 50 mcg/actuation spray,suspension 2 spray intranasal DAILY 30 Days Qty: 16 5RF propranolol [Inderal LA] 120 mg capsule,extended release 24hr 120 mg PO DAILY Qty: 90 3RF Referrals: Analisa Hansen MD [Primary Care Provider, Internal Medicine] Print Language: Cameroonian
[2024-10-10 14:28] LABS: Appearance Urine Clear; Color Urine Yellow; Glucose Urine UA Negative (Negative); Leukocyte Esterase Urine Negative (Negative); Nitrite Urine Negative (Negative); PH 5.5 (5.0-9.0); Specific Gravity - Urine 1.025 (1.005-1.025); Urine Blood Negative (Negative); Urine Ketones Trace mg/dL (Negative); Urine Protein Negative (Neg-Trace)
[2024-10-10 14:42] VITALS: BP 126/78; PULSE 83; RESP 18; O2SAT 94
--- OUTSIDE RECORDS SUMMARY | 2024-10-10 16:05 | XMS_ITS | Encounter Summary ---
Author Organization [employer] Address [address] [place] [address] Care Team Providers Care Nutrition Representative Name Role Phone Analisa Hansen MD Primary Care Provide r Encounter Details Date Type Department Care Team (Late st Contact Info) Description 10/10/2024 Orders Only GENERIC EXTERNAL DATA DEPARTMENT Provider, Generic External Data Social History Tobacco Use Types Packs/Day Years [...] Care Team (Late st Contact Info) Description 11/04/2024 1:30 PM EDT Office Visit [facility] MEDICINE [address] [place] [address] Analisa Hansen MD [address] [place] [address] 11/06/2024 1:00 PM EDT Office Visit [facility] ADULT DENTAL [address] [place] [address] Esme, Loly [address] [place] [address] documented as of this encounter Procedures Procedure Name Priority Date/Time Associated Diagnosis Comments URINALYSIS WITH REFLEX MICROSCOPIC Routine 10/10/2024 2:18 PM EDT documented in this encounter Results * Urinalysis w/reflex microscopic (10/10/2024 2:18 PM EDT) Color Urine Yellow [facility] Appearance Urine Clear [facility] PH 5.5 5.0 - 9.0 [facility] Glucose Urine UA Negative Negative mg/dL [facility] Urine Blood Negative Negative [facility] Specific [place] - Urine 1.025 1.005 - 1.025 [facility] Urine Protein Negative Neg-Trace mg/dL [facility] Urine Ketones Trace Negative mg/dL [facility] Nitrite Urine Negative Negative [facility] Leukocyte Esterase Urine Negative Negative [facility] 10/10/2024 2:18 PM EDT 10/10/2024 2:24 PM EDT Narrative [facility] - 10/10/2024 2:29 PM EDT Urine, Clean Catch us Generic External Data Provider LAB URINE ORDERAB LES Final Result Performing Organization Address City/State/[facility] Co de Phone Number [facility] [address] [place] [address] [phone] documented in this encounter Visit Diagnoses Not on filedocumented in this encounter Additional Health Concerns Assessment Noted Time PHQ-9 Depression Total Score: 0 05/23/19 24 11:05 AM EST documented as of this encounter Care Teams Nutrition Representative Relationship Specialty Start Date End Date Analisa Hansen MD [address] [place] [id number] PCP - General Family Medicine 03/07/19 documented as of this encounter
--- NOTE | 2024-10-10 16:09 | ED.GENADULT ---
HPI - General Adult General Chief complaint: Back Pain/Injury Stated complaint: Lower back and abd Pain Time Seen by Provider: 10/10/24 16:01 Related Data Home Medications ?Medication ?Instructions ?Recorded ?Confirmed cholecalciferol (vitamin D3) 25 25 mcg PO DAILY 09/02/20 06/18/24 mcg (1,000 unit) capsule citalopram 10 mg tablet 10 mg PO DAILY 09/02/20 06/18/24 omeprazole 20 mg capsule,delayed 20 mg PO DAILY@0630 09/02/20 06/18/24 release clonazepam 2 mg tablet 2 mg PO DAILY PRN Anxiety 04/26/21 06/18/24 bupropion HCl 75 mg tablet 75 mg PO BEDTIME 05/14/24 06/18/24 omega 2-rfr-huj-fish oil 1,000 mg 1 cap PO DAILY 05/14/24 06/18/24 (120 mg-180 mg) capsule (Fish Oil) pravastatin 40 mg tablet 40 mg PO DAILY 05/14/24 06/18/24 Previous Rx's ?Medication ?Instructions ?Recorded fluticasone propionate 50 2 spray intranasal DAILY 30 days 01/25/23 mcg/actuation nasal #16 grams spray,suspension loratadine 10 mg tablet 10 mg PO DAILY for allergic 08/08/23 rhinitis #30 tabs propranolol 120 mg capsule,24 120 mg PO DAILY #90 caps 06/18/24 hr,extended release (Inderal LA) Allergies Allergy/AdvReac Type Severity Reaction Status Date / Time No Known Drug Intolerances Allergy Mild UNKNOWN Verified 10/10/24 12:45 [facility] Past Medical History Medical History Obesity (BMI 30-39.9) Essential hypertension Allergic rhinitis due to allergen Cough MARIAN on CPAP MARIAN (obstructive sleep apnea) Family History Family History Father Heart disease DM2 (diabetes mellitus, type 2) Heart murmur Social History Social History Household Members: None Housing: Apartment Do you presently have visiting nurse or other home services: No Alcohol intake: never Patient Tobacco Use Status: Never used Tobacco Advance Directives: No Advance Directives Information Provided: Yes Do you have a plan to hurt others: No Plan Physical Exam ED Vital Signs: Vital Signs - 24 hr 10/10/24 12:44 10/10/24 14:42 Temperature 98 F Pulse Rate 84 83 Respiratory Rate 19 18 Blood Pressure 139/76 126/78 Pulse Oximetry 98 94 Oxygen Delivery Method Room Air Room Air BMI result Body Mass Index 38.0 Medical Decision Making Lab Data Labs: Lab Results 10/10/24 Range/Units 14:18 Urine Color Yellow Urine Appearance Clear Urine pH 5.5 (5.0-9.0) Ur Specific [place] 1.025 (1.005-1.025) Urine Protein Negative (Neg-Trace) mg/dL Urine Glucose (UA) Negative (Negative) mg/dL Urine Ketones Trace (Negative) mg/dL Urine Blood Negative (Negative) Urine Nitrite Negative (Negative) Ur Leukocyte Esterase Negative (Negative) Discharge Plan Discharge Prescriptions: No Action loratadine 10 mg tablet 10 mg PO DAILY Qty: 30 5RF pravastatin 40 mg tablet 40 mg PO DAILY bupropion HCl 75 mg tablet 75 mg PO BEDTIME omega 4-cvf-opr-fish oil [Fish Oil] 1,000 (120-180) mg Capsule 1 cap PO DAILY omeprazole 20 mg capsule,delayed release(DR/EC) 20 mg PO DAILY@0630 citalopram 10 mg tablet 10 mg PO DAILY cholecalciferol (vitamin D3) 25 mcg (1,000 unit) capsule 25 mcg PO DAILY clonazepam 2 mg tablet 2 mg PO DAILY PRN (Reason: Anxiety) fluticasone propionate 50 mcg/actuation spray,suspension 2 spray intranasal DAILY 30 Days Qty: 16 5RF propranolol [Inderal LA] 120 mg capsule,extended release 24hr 120 mg PO DAILY Qty: 90 3RF Print Language: Italian
[2024-10-10] MEDS: Ibuprofen 800 MG TABLET PO (16:26)
[2024-10-10 17:16] VITALS: BP 126/78; PULSE 83; RESP 18; TEMP 36.7; O2SAT 94
== END 2024-10-10 17:17 | disposition home or self-care (01) ==
PROVIDERS: Physician Assistant Medical; Emergency Provider Emergency Medicine; PCP Internal Medicine
DX: M54.16 Radiculopathy, lumbar region (principal); Z79.899 Other long term (current) drug therapy
CPT/HCPCS: 81003; 99283

== ENCOUNTER 2024-10-17 08:44 | Outpatient (AMB) | payer OTHER, SELFPAY ==
--- NOTE | 2024-10-17 09:08 | MHC.OFFVIS ---
Vital Signs 10/17/24 09:09 Height 5 ft 8 in Weight 253 lb BMI 38.5 BP 127/79 Blood Pressure Location Lt brachial Position Sitting Respiration 18 Pulse 94 Pulse Source Pulse Oximeter Pulse Oximetry (%) 95 Oxygen Delivery Method Room Air Intake Visit Reasons: FU low back pain/ref by spine ctr Pantry Attendant Required: No Allergies No Known Drug Intolerances Allergy (Mild, Verified 10/17/24 09:11) UNKNOWN HPI Comments Details: Boy is back in my office this time on referral from neurosurgical office. He continues to complain on lower back pain, however his pain is intermittent. He reports his pain today is very mild 2/10. He did not notice any relationship of pain exacerbation with weather changes or any exercises motions or movements he performs. He completed physical therapy 6 months ago and now he wants to try yet another sessions of physical therapy. He is on propranolol to treat paroxysmal SVT, nevertheless at the top of his ability I aerobic exercise is still will be very helpful for this patient. I recommended him to see me after he completes physical therapy. Prior: complains on pain in the central lower back. Onset 10 years ago. severe 3 years ago. He reports that flexing backwards hurts him more than flexing forward standing hurts him more than sitting actually sitting alleviates his pain. His pain is intermittent and mild in nature most of the time. [facility] Medical History Obesity (BMI 30-39.9) Essential hypertension Allergic rhinitis due to allergen Cough MARIAN on CPAP MARIAN (obstructive sleep apnea) Family History Father Heart disease DM2 (diabetes mellitus, type 2) Heart murmur Social History Household Members: None Housing: Apartment Do you presently have visiting nurse or other home services: No Alcohol intake: never Patient Tobacco Use Status: Never used Tobacco Review of Systems Const All systems reviewed & are unremarkable except as noted in HPI and below ENT Reports Normal hearing present Neuro Reports Normal hearing present, Denies Abnormal speech present, Denies confusion and Denies Sensory deficit (Neuro) Psych Denies confusion Physical Exam Vital Signs: Last Vital Signs Pulse 94 10/17/24 09:09 Resp 18 10/17/24 09:09 BP 127/79 10/17/24 09:09 Pulse Ox 95 10/17/24 09:09 Oxygen Delivery Method Room Air 10/17/24 09:09 BMI result Body Mass Index 38.5 Const General: no acute distress; No confusion Nutritional Appearance: obese morbidly obese Orientation/consciousness: patient oriented x3 and No confusion Eyes General: appearance normal, both eyes and all related structures Pupils: Equal, round and reactive pupils present EOM: EOMs intact bilaterally Neck Neck: Yes full ROM Chest Chest palpation & inspection: normal inspection of the chest Resp Effort & Inspection: normal respiratory effort, able to speak in complete sentences, normal respiratory pattern, no audible wheezes and no cough Cardio Jugular venous distension: no JVD GI Inspection: Yes normal to inspection Back/Spine/Pelvis Other: No tenderness on palpation in paraspinal spinal region lumbar spine. Neuro General: patient oriented x3, gait normal and No confusion Cranial nerves: Yes CN's II-XII intact bilaterally, Yes Equal, round and reactive pupils present, Yes Normal hearing present and Yes Ability to bilaterally elevate shoulders present Speech: No Abnormal speech present Gait exam (Neuro): Normal gait present Motor exam (neuro): 5/5 motor strength present throughout Sensory Exam: No Sensory deficit (Neuro) Extrem General: No pedal edema Psych Speech and movement: Normal speech and movement present Affect: normal affect Attitude: cooperative Thought process: Normal thought process present Thought content: Normal thought content present Insight: Good insight present (Psych) Judgement: Good judgement present (Psych) Assessment & Plan Assessment & Plan (1) Lumbago without sciatica: Code(s): M54.50 - Low back pain, unspecified Category: Medical (2) Spondylosis without myelopathy or radiculopathy, lumbar region: Code(s): M47.816 - Spondylosis without myelopathy or radiculopathy, lumbar region Category: Medical (3) Low back pain: Code(s): M54.50 - Low back pain, unspecified Category: Medical Plan I recommended this patient to get engaged into low-impact aerobic exercise at the best of his abilities. He is on metoprolol and unfortunately this limits his ability to exercise. I also recommended him to go for yet another session for physical therapy. I recommended him to continue home exercise programs after physical therapy. He needs to perform at least 15 minutes exercises at least 3 times a day. Upon completion of physical therapy he will give me a call and schedule appointment if he wants to go for the follow-up. Orders: Orders PT Evaluation and Treatment Today M54.50 - Low back pain, unspecified Coding Level of Care Code Est Pt Level 3 (82867) Diagnoses Lumbago without sciatica M54.50 Spondylosis without myelopathy or radiculopathy, lumbar region M47.816 Low back pain M54.50
[2024-10-17 09:09] VITALS: BP 127/79; PULSE 94; RESP 18; O2SAT 95; BMI 38.5
--- OUTSIDE RECORDS SUMMARY | 2024-10-17 09:14 | XMS_ITS | Encounter Summary ---
Author Organization [employer] Address [address] [facility] 7t [place] [address] Care Team Providers Care Operations Examiner Name Role Phone Analisa Hansen MD Primary Care Provide r Reason for Visit * Reason Onset Date Comments new appt 07/28/2023 Encounter Details Date Type Department Care Team ([facility] st Contact Info) Description 07/28/2023 Telephone [facility] ADULT DENTAL [address] [place] [address] Matt Kaplan, DMD [address] [place] [address] new appt Social History Tobacco Use Types [...] encounter Miscellaneous Notes * Telephone Encounter - Rosmeary Barahona - 07/28/2023 3:09 PM EDT Patient had crown delivery scheduled for 07/30 but is unable to make that day. Would like a new appt. documented in this encounter Plan of Treatment Upcoming Encounters Date Type Department Care Team (Late st Contact Info) Description 11/04/2024 1:30 PM EDT Office Visit [facility] [address] [place] [address] Analisa Hansen MD [address] [place] [address] 11/06/2024 1:00 PM EDT Office Visit [facility] [address] [place] [address] Loly Victoria [address] [place] [address] documented as of this encounter Visit Diagnoses Not on filedocumented in this encounter Additional Health Concerns Assessment Noted Time PHQ-9 Depression Total Score: 0 05/23/19 24 11:05 AM EST documented as of this encounter Care Teams Operations Examiner Relationship Specialty Start Date End Date Analisa Hansen MD [address] [place] [id number] PCP - General Family Medicine 03/07/19 documented as of this encounter
== END 2024-10-17 09:28 | disposition home or self-care (01) ==
LOC: HO.PMC 08:44
PROVIDERS: PCP Internal Medicine; Referring Provider Physician Assistant; Visit Provider Anesthesiology
DX: M54.50 Low back pain, unspecified (principal); M47.816 Spondylosis without myelopathy or radiculopathy, lumbar region
CPT/HCPCS: 99213

== ENCOUNTER → 2024-10-17 08:44 | Outpatient (BNVA) | payer OTHER, SELFPAY | PROVIDERS: PCP Internal Medicine; Referring Provider Physician Assistant; Visit Provider Anesthesiology | DX: M47.816 Spondylosis without myelopathy or radiculopathy, lumbar region (principal); M54.50 Low back pain, unspecified | CPT/HCPCS: 99212 ==

== ENCOUNTER 2024-10-23 09:28 | Outpatient (REF) | payer OTHER, SELFPAY ==
[2024-10-23 11:08] LABS: MANUAL DIFF FLAG NO
[2024-10-23 11:20] LABS: Hematocrit 42.4 % (42.0-52.0); Hemoglobin 14.3 g/dl (14.0-18.0); Imm Gran Abs Auto 0.09 X10*3/uL (0.00-0.03); Imm Gran Pct Auto 1.3 % (0.0-0.4); Lymphocytes Absolute Auto 2.1 X10*3/uL (1.2-4.9); Mean Corpuscular HGB Conc 33.7 g/dl (31.0-36.0); Mean Corpuscular Hemoglobin 28.8 pg (27.0-33.0); Mean Corpuscular Volume 85.3 fL (80.0-98.0); NRBC Abs Auto 0.000 X10*3/uL (0.0-0.012); NRBC Pct Auto 0.0 /100WBC (0.0-0.2); Platelet Count 242 X10*3/uL (160-400); Red Blood Count 4.97 X10*6/uL (4.60-5.80); White Blood Count 7.1 X10*3/uL (4.8-10.8)
[2024-10-23 11:30] LABS: Hemoglobin A1C 153.7937 umol/L; Total Hemoglobin (HGBA1C) 3783.7500 umol/L
[2024-10-23 12:22] LABS: Alanine Aminotransferase 47 U/L (0-40); Albumin Level 4.0 g/dL (3.5-5.0); Alkaline Phosphatase 91 U/L (39-117); Anion Gap 11 (12-20); Aspartate Amino Transferase 32 U/L (5-37); Blood Urea Nitrogen 15 mg/dL (9-16); Calcium 8.9 mg/dL (8.4-10.2); Carbon Dioxide 27 mmol/L (22-29); Chloride 105 mmol/L (96-108); Cholesterol 116 mg/dL (<200); Estimated Glomerular Filt Rate > 60; HDL Cholesterol 18 mg/dL (>40); Potassium 4.3 mmol/L (3.3-5.1); Sodium 139 mmol/L (135-145); Total Protein 7.1 g/dL (6.5-8.0); Triglycerides 300 mg/dL (<150)
[2024-10-23 12:36] LABS: HIV Num 1 0.05 S/CO (0.00-0.99); ~HepC Num1 0.08 S/CO (0.00-0.79); ~Hepatitis C Antibody Nonreactive (Nonreactive)
[2024-10-23 13:37] LABS: Free T4 (Free Thyroxine) 1.00 ng/dL (0.71-1.85)
== END 2024-10-23 09:29 | disposition home or self-care (01) ==
LOC: HO.HHCL 09:28
PROVIDERS: PCP Internal Medicine; Visit Provider Internal Medicine
DX: E66.9 Obesity, unspecified (principal); I10 Essential (primary) hypertension
CPT/HCPCS: 36415; 80053; 80061; 82306; 83036; 84439; 84443; 85025; 86803; 87389

== ENCOUNTER 2024-12-31 15:58 | Outpatient (RCR) | payer OTHER, SELFPAY ==
--- NOTE | 2024-11-22 15:52 | MHC.PT.EP ---
[facility] [place] [facility] [place] Office [place] Office [address] Aminata Dickens [address] [phone] F: [phone] F: [phone] F: [phone] F: [phone] Physical Therapy Plan of Care Date of Evaluation: 11/21/24 Date of Surgery: n/a Diagnosis: Low back pain, unspecified Assessment: Pt is a pleasant 49yo M who presents to PT with low back pain. Pt presents to PT with current impairments in pain, decreased ROM, decreased strength, soft tissue restrictions, decreased core stabilization, decreased glute strength, and impaired posture. He is limited functionally by bending, getting up, walking, and stairs. He is a good candidate for skilled PT in order to address current impairments to facilitate return to PLOF. 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 Manual therapy to restore motion and function. Therapeutic exercise to improve strength and flexibility. Neuromuscular re-education for posture and balance. Therapeutic activities to return to functional activities of daily living. Electronically signed by: Cynthia Seymour, PT, DPT Please sign and return to therapist. Thank you for your referral.
--- NOTE | 2025-02-27 08:49 | MHC.PT.DC ---
[facility] Office [place] Office [place] Office [address] Aminata Dickens [address] [phone] F: [phone] F: [phone] F: [phone] F: [phone] Physical Therapy Discharge Report Diagnosis: Low back pain, unspecified Date of Surgery: n/a Date of Evaluation: 11/21/24 Date of Discharge: 02/27/25 Treatments to Date: 9 Cancellations to Date: 2 No Shows to Date: Discharge Status: Improved Function Independent with HEP Discharge Summary: Pt was seen for skilled from 11/21/24-12/31/24. His last attended and scheduled appointment was 12/31/24. Per last treatment note, he was independent with HEP. He has been D/C to HEP Electronically signed by: Cynthia Fleming, PT, DPT Please sign and return to therapist. Thank you for your referral.
== END 2025-02-27 08:48 | disposition home or self-care (01) ==
LOC: HO.PT 15:58
PROVIDERS: PCP Internal Medicine; Visit Provider Anesthesiology
DX: M54.50 Low back pain, unspecified (principal)
CPT/HCPCS: 97110; 97162; 97530

== ENCOUNTER 2025-02-12 12:48 | Outpatient (REF) | payer OTHER, SELFPAY ==
--- NOTE | ~2025-02-12 | US_ITS ---
EXAMINATION: US RETROPERITONEAL LIMITED (RENAL ONLY) CLINICAL INFORMATION: Renal cysts. Follow-up.. COMPARISON: Correlated to CT abdomen and pelvis dated April 04, 2017. TECHNIQUE: Real-time ultrasound kidneys using grayscale technique. FINDINGS: RIGHT KIDNEY: 11 x 6 x 5 cm (SAG x AP x TRV). Volume: 179 cc normal echotexture. Renal cortical thickness is normal. No hydronephrosis. No gross solid or cystic lesion. LEFT KIDNEY: 11 x 6 x 5 cm (SAG x AP x TRV). . Volume: 177 cc normal echotexture. Renal cortical thickness is normal. No hydronephrosis. No solid or cystic lesion. US/US renal BI IMPRESSION: No hydronephrosis. No renal cysts. Limited by patient's body habitus.. Electronically signed by: Austen Cortez MD 02/12/2025 01:14 PM EDT
--- OUTSIDE RECORDS SUMMARY | 2025-02-12 17:46 | XMS_ITS | Clinical Summary ---
Author Organization [facility] Address [address] [place], [place] [phone] Phone Care Team Providers Care Assistant Foreman Name Role Phone Analisa Hansen MD Primary Care Provider Encounters Date Type Department Care Team Description 02/06/2025 Telephone [facility] Rheumatology [address] [place] [address] Unknown, Unknown, Referral from Last 3 Months Social History Tobacco Use Types Packs/Day Years Used Date Smoking Tobacco: Never Assessed Sex and Gender Information Value Date Recorded Sex Assigned at Not on file Legal Sex Male 3:52 PM EDT Gender Identity Not on file Sexual Orientation Not on file Plan of Treatment Not on file Medical Devices Not on file Insurance [facility] MEDICARE REPLACEMENT [place] [id number] [facility] C[facility] MEDICARE REPLACEMENT [facility] [place] [id number] [facility] MEDICARE REPLACEMENT [facility] MEDICARE REPLACEMENT [facility] ONE CARE MEDICARE REPLACEMENT Care Teams Assistant Foreman Relationship Specialty Start Date End Date Analisa Hansen MD [address] [place] [phone] PCP - General Internal Medicine 01/07/25 Additional Source Comments The information contained in this document represents components of the legal health record. It is not the complete legal health record.[facility]
== END 2025-02-12 12:49 | disposition home or self-care (01) ==
LOC: HO.US 12:48
PROVIDERS: PCP Internal Medicine; Visit Provider Internal Medicine
DX: N28.1 Cyst of kidney, acquired (principal)
CPT/HCPCS: 76775

== ENCOUNTER → 2025-02-12 12:50 | Outpatient (BNV) | payer OTHER, SELFPAY | PROVIDERS: PCP Internal Medicine; Visit Provider Radiology Diagnostic Radiology | DX: N28.1 Cyst of kidney, acquired (principal) | CPT/HCPCS: 76775 ==

== ENCOUNTER 2025-04-14 14:22 | Outpatient (AMB) | payer OTHER, SELFPAY ==
[2025-04-14 14:32] VITALS: BP 112/64; PULSE 90; O2SAT 96; BMI 37.9
--- NOTE | 2025-04-14 14:32 | A.OFFVIS_ITS ---
Vital Signs 04/14/25 14:32 Height 5 ft 8 in Weight 249 lb 1.957 oz BMI 37.9 BP 112/64 Blood Pressure Location Lt brachial Position Sitting Pulse 90 Pulse Source Pulse Oximeter Pulse Oximetry (%) 96 Oxygen Delivery Method Room Air Intake Visit Reasons: Obstructive sleep apnea Intake Note: pt is here for follow up of MARIAN, and states he is starting to snore again, some fatigue during the day. 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: No Heel Burnisher: Heel Burnisher offered & declined Allergies No Known Drug Intolerances Allergy (Mild, Verified 04/14/25 14:35) UNKNOWN Medication List - Last Reconciled 04/14/25 by Yolanda Meza MD bupropion HCl 75 mg PO BEDTIME cholecalciferol (vitamin D3) 25 mcg PO DAILY citalopram 10 mg PO DAILY clonazepam 2 mg PO DAILY PRN fluticasone propionate 50 mcg/actuation 2 sprays intranasal DAILY 30 days loratadine 10 mg PO DAILY omeprazole 20 mg PO DAILY@0630 pravastatin 40 mg PO DAILY propranolol ER (Inderal LA) 120 mg PO DAILY Do you need a note to return to daycare/school/sports/work: No HPI HPI Obstructive sleep apnea: Details: This 49 years old gentleman is a case of obstructive sleep apnea which is well treated with use of CPAP. He is requiring relatively low pressure of 10 cm, using NASALAIR ,, which is very comfortable. He use it it 8-9 hours per night and sleeps good. He denies any daytime sleepiness. Weight clark there has been no significant change. He has mild nasal congestion which is controlled with Flonase. [facility] Medical History Obesity (BMI 30-39.9) Essential hypertension Allergic rhinitis due to allergen Cough MARIAN on CPAP MARIAN (obstructive sleep apnea) Family History Father Heart disease DM2 (diabetes mellitus, type 2) Heart murmur Social History Household Members: None Housing: Apartment Do you presently have visiting nurse or other home services: No Alcohol intake: never Patient Tobacco Use Status: Never used Tobacco Review of Systems Const All systems reviewed & are unremarkable except as noted in HPI and below Eyes Reports no additional complaints ENT Reports nasal congestion and Reports post nasal drip Card Reports no additional complaints Resp Reports cough (Precipitated by ticklish is feeling in the throat) and Denies wheezing GI Reports heartburn (GERD symptoms controlled with omeprazole) Reports no additional complaints Musc Reports no additional complaints Skin/Breast Reports system reviewed and no additional complaints, except as documented Neuro Reports no additional complaints Psych Reports no additional complaints Aller/Immun Denies wheezing Physical Exam Vital Signs: Last Vital Signs Pulse 90 04/14/25 14:32 BP 112/64 04/14/25 14:32 Pulse Ox 96 04/14/25 14:32 Oxygen Delivery Method Room Air 04/14/25 14:32 BMI result Body Mass Index 37.9 Const General: healthy appearing (Except for being overweight), comfortable, no acute distress, alert and awake Orientation/consciousness: patient oriented x3 HEENT Head: Yes normal to inspection General nose exam: No nasal polyps present, mucous membranes and turbinates abnormal (Has moderate hypertrophy of the nasal turbinates), No nasal discharge present and Other nasal findings present (No significant nasal congestion or blockage at this time) Face and sinus: Yes sinuses nontender Mouth: oropharynx normal Throat: Yes posterior oropharynx normal Eyes General: appearance normal, both eyes and all related structures Neck Neck: Yes normal visual inspection, Yes no lymphadenopathy, Yes trachea midline and Yes no JVD Thyroid: Thyroid normal Chest Chest palpation & inspection: normal inspection of the chest, normal palpation of entire chest wall and no tenderness Resp Other: Percussion note resonant. He has equal breath sounds on both sides. No wheezes or crepitations are heard. Cardio Palpation: normal PMI Rate: regular rate Rhythm: regular rhythm Heart sounds: no gallops and no murmurs Peripheral pulses: Peripheral pulses 2+ throughout GI Palpation (GI): Soft to palpation, nontender, No hepatosplenomegaly present and no masses Auscultation: normal bowel sounds Back/Spine/Pelvis Thoracic/Lumbar Spine: thoracic and lumbar spine normal to inspection Skin General skin exam: no rashes or lesions noted Neuro General: patient oriented x3 and no focal motor deficits Cranial nerves: Yes CN's II-XII intact bilaterally Extrem General: Yes normal to inspection, Yes no clubbing, cyanosis or edema and Yes no calf tenderness Psych Appearance: grossly normal and well kempt Speech and movement: Normal speech and movement present Results Reviewed Results Reviewed: Compliance report for the last 30 nights is reviewed and he used the CPAP 100% of the nights.\ Average use it per night 8 hours 53 minutes. He is using relatively low pressure of 10 cm. There is no significant Assessment & Plan Assessment & Plan (1) MARIAN (obstructive sleep apnea): Comment: HE IS A CONFIRMED CASE OF MODERATELY SEVERE OBSTRUCTIVE SLEEP APNEA. TREATED WITH CPAP WHICH HE USES VERY REGULARLY WITH GOOD RESULTS . ( NASAL AIR - 10 CMs ) HIS COMPLIANCE IS EXCELLENT. HE COMPLAINS OF SOME SNORING DURING THE NIGHT EVEN WHILE WEARING THE CPAP. Code(s): G47.33 - Obstructive sleep apnea (adult) (pediatric) Category: Medical Plan: HIS COMPLIANCE IS EXCELLENT AND HE IS DEFINITELY BENEFITTING FROM THE USE. OF CPAP I TALKED TO HIM IF SNORING IS BOTHERSOME BUT HE SAY IS NO HE CAN COPE WITH THAT. SO WE WILL LEAVE THE PRESSURE AT 10 CM (2) Cough: Comment: COUGH MOST LIKELY , SEC TO ALLERGIC RHINITIS,, AND POST NASAL DISCHARGE IT IS MINIMAL AT THIS TIME. TX : CONTINUE TREATMENT FOR ALLERGIC RHINITIS, ALSO CONTINUE TREATMENT FOR GERD, AVOID FOODS THAT MAY TRIGGER ACID REFLUX. FOR PERSISTENT BOUTS OF COUGH MAY USE ALBUTEROL 2 PUFFS Q.6 HOURS P.R.N.. ONCE THE CPAP DEVICE IS CHANGED TO A NEW MODEL, IF COUGH DOES PERSIST THEN HE WOULD NEED WORKUP FOR REACTIVE AIRWAYS. Code(s): R05 - Cough Category: Medical Plan: OK TO USE OTC COUGH MEDICINE BUT ONLY P.R.N.. (3) Allergic rhinitis due to allergen: Comment: This is a chronic problem but more pronounced in the last 2 years. Code(s): J30.9 - Allergic rhinitis, unspecified Category: Medical Plan: Advised to continue : FLONASE NASAL INH DAILY ( Script sent again ) , AND ZERTEC OR LORATDINE 10 MG ONCE A DAY ,PRN . Coding Level of Care Code Est Pt Level 3 (51398) Diagnoses MARIAN (obstructive sleep apnea) G47.33 Cough R05 Allergic rhinitis due to allergen J30.9
--- OUTSIDE RECORDS SUMMARY | 2025-04-14 17:49 | XMS_ITS | Encounter Summary ---
Author Organization [employer] Address [address] [place] [address] [address] [place] [address] Care Team Providers Care Photo Colorer Name Role Phone Analisa Hansen MD Primary Care Provide r Reason for Visit * Reason Onset Date Comments Med Change Request Prior Authorization 05/09/2024 MALGORZATA dickey Encounter Details Date Type Department Care Team (Late st Contact Info) Description 05/09/2024 Refill [facility] [address] [place], [place] [phone] Analisa Hansen MD [address] [place], [place] [phone] Class 2 severe obesity with serious comorbidity [...] Care Team (Late st Contact Info) Description 05/05/2025 1:30 PM EST Office Visit [facility] [address] [place] [address] Analisa Hansen MD [address] [place] [address] 05/19/2025 12:45 PM EST Office Visit [facility] ADULT DENTAL [address] [place], [place] [phone] Loly Victoria [address] [place] [address] documented as of this encounter Visit Diagnoses Diagnosis Class 2 severe obesity with serious comorbidity and body mass index (BMI) of 38.0 to 38.9 in adult, unspecified obesity type documented in this encounter Additional Health Concerns Assessment Noted Time PHQ-9 Depression Total Score: 0 05/23/19 24 11:05 AM EST documented as of this encounter Care Teams Photo Colorer Relationship Specialty Start Date End Date Analisa Hansen MD [address] [place] [address] PCP - General Family Medicine 03/07/19 documented as of this encounter
--- OUTSIDE RECORDS SUMMARY | 2025-04-14 17:49 | XMS_ITS | Encounter Summary ---
Author Organization [email or web address] Address [address] [place] [address] [address] [place] [address] Care Team Providers Care Fabric And Textile Factory Worker Name Role Phone Analisa Hansen MD Primary Care Provide r Encounter Details Date Type Department Care Team (Late Contact Info) Description 05/23/2022 Orders Only [facility] [address] [place] [phone] Vandana Cm MD [address] [place] [phone] Blurry vision (Primary Dx) Social History Tobacco [...] Description 05/05/2025 1:30 PM EST Office Visit [facility] [address] [place] [phone] Analisa Hansen MD [address] [place], [place] [phone] 05/19/2025 12:45 PM EST Office Visit [facility] ADULT DENTAL [address] [place], [place] [phone] Loly Victoria [address] [place], [place] [phone] documented as of this encounter Visit Diagnoses Diagnosis Blurry vision- Primary Other specified visual disturbances documented in this encounter Care Teams Fabric And Textile Factory Worker Relationship Specialty Start Date End Date Analisa Hansen MD [address] [place] [address] PCP - General Family Medicine 03/07/19 documented as of this encounter
--- OUTSIDE RECORDS SUMMARY | 2025-04-14 17:49 | XMS_ITS | Encounter Summary ---
Author Organization [employer] Address [address] [facility] [address]t [place] [address] Care Team Providers Care Physical Metallurgist Name Role Phone Analisa Hansen MD Primary Care Provide r Encounter Details Date Type Department Care Team ([facility] st Contact Info) Description 05/03/2023 Abstract [facility] ADULT DENTAL [address] [place] [address] Matt Kaplan, DMD [address] [place] [address] Social History Tobacco Use Types Packs/Day Years [...] Description 05/05/2025 1:30 PM EST Office Visit [facility] [address] [place] [address] Analisa Hansen MD [address] [place] [address] 05/19/2025 12:45 PM EST Office Visit [facility] ADULT DENT[facility] [address] [place] [address] Esme, Loly [address] [place] [address] documented as of this encounter Visit Diagnoses Not on filedocumented in this encounter Additional Health Concerns Assessment Noted Time PHQ-9 Depression Total Score: 12 023 11:55 AM EDT documented as of this encounter Care Teams Physical Metallurgist Relationship Specialty Start Date End Date Analisa Hansen MD [address] [place], [place] [phone] PCP - General Family Medicine 03/07/19 documented as of this encounter
--- OUTSIDE RECORDS SUMMARY | 2025-04-14 17:49 | XMS_ITS | Encounter Summary ---
Author Organization [employer] Address [address] [facility] 7t [place] [address] Care Team Providers Care Boat Repairer Name Role Phone Analisa Hansen MD Primary Care Provide r Reason for Visit * Reason Comments Med Refill Encounter Details Date Type Department Care Team (Late st Contact Info) Description 04/01/2023 Refill [facility] ADULT D[facility]AL [address] [place], [place] [phone] Emil Aparicio, DMD [address] [place], [place] [phone] Dental caries Social History Tobacco Use Types [...] Description 05/05/2025 1:30 PM EST Office Visit [facility] [address] [place] [address] Analisa Hansen MD [address] [place] [address] 05/19/2025 12:45 PM EST Office Visit [facility] ADULT DENTAL [address] [place] [address] Devon Victroiaaris [address] [place] [address] documented as of this encounter Visit Diagnoses Diagnosis Dental caries Unspecified dental caries documented in this encounter Additional Health Concerns Assessment Noted Time PHQ-9 Depression Total Score: 12 023 11:55 AM EDT documented as of this encounter Care Teams Boat Repairer Relationship Specialty Start Date End Date Analisa Hansen MD [address] [place] [phone] PCP - General Family Medicine 03/07/19 documented as of this encounter
--- OUTSIDE RECORDS SUMMARY | 2025-04-14 17:49 | XMS_ITS | Encounter Summary ---
Author Organization [employer] Address [address] [place] [address] 7t [place] [address] Care Team Providers Care Registered Sales Assistant Name Role Phone Analisa Hansen MD Primary Care Provide r Reason for Visit * Reason Comments Med Refill Encounter Details Date Type Department Care Team (Late Contact Info) Description 10/26/2022 Refill [facility] MEDICINE [address] [place] [address] Analisa Hansen MD 230 [place], [place] [phone] Social History Tobacco Use Types Packs/Day Years [...] Description 05/05/2025 1:30 PM EST Office Visit [facility] MEDICINE 230 [place] [address] Analisa Hansen MD 230 [place] [address] 05/19/2025 12:45 PM EST Office Visit [facility] ADULT DENTAL [address] [place], [place] [phone] Devon Victoriaaris [address] [place], [place] [phone] documented as of this encounter Visit Diagnoses Not on filedocumented in this encounter Additional Health Concerns Assessment Noted Time PHQ-9 Depression Total Score: 12 023 11:55 AM EDT documented as of this encounter Care Teams Registered Sales Assistant Relationship Specialty Start Date End Date Analisa Hansen MD [address] [place] [phone] PCP - General Family Medicine 03/07/19 documented as of this encounter
--- OUTSIDE RECORDS SUMMARY | 2025-04-14 17:49 | XMS_ITS | Encounter Summary ---
Author Organization [employer] Address [address] [place] [address] 7t [place] [address] Care Team Providers Care Log Roller Name Role Phone Analisa Hansen MD Primary Care Provide r Encounter Details Date Type Department Care Team (Late Contact Info) Description 05/27/[address] [facility] MEDICINE [address] [place] [address] [phone] Stephanie Segal FNP 230 [place], [place] [phone] Vitamin D deficiency (Primary Dx) Social History [...] Description 05/05/2025 1:30 PM EST Office Visit [facility] MEDICINE [address] [place] [address] [phone] Analisa Hansen MD 230 [place], [place] [phone] 05/19/2025 12:45 PM EST Office Visit [facility] ADULT DENTAL [address] [place], [place] [phone] Loly Victoria 230 [place], [place] [phone] documented as of this encounter Visit Diagnoses Diagnosis Vitamin D deficiency- Primary documented in this encounter Care Teams Log Roller Relationship Specialty Start Date End Date Analisa Hansen MD [address] [place] [address] PCP - General Family Medicine 03/07/19 documented as of this encounter
--- OUTSIDE RECORDS SUMMARY | 2025-04-14 17:49 | XMS_ITS | Encounter Summary ---
Author Organization [employer] Address [address] [facility] 7t [place] [address] Care Team Providers Care Pumper Gauger Apprentice Name Role Phone Analisa Hansen MD Primary Care Provide r Encounter Details Date Type Department Care Team ([facility] Contact Info) Description 01/01/2025 Telephone [facility] MED & PEDS [address] [place] [address] Aidee Daniel LPN Social History Tobacco Use Types Packs/Day Years Used Date Smoking Tobacco: Never Passive Smoke Exposure: Never Smokeless Tobacco: Never Alcohol Use Standard Drinks/Week Comments Never 0 (1 standard drink = 0.6 oz pur e alcohol) Depression Answer Date Recorded Patient Health Questionnaire-9 Score 0 11/04/2024 Patient Health Questionnaire-9 Score 0 11/04/2024 Last PHQ-9: Questionnaire Data Not on file 0 11/04/2024 Housing Stability Answer Date Recorded What is your housing situation today? I have singhgeri graves 11/21/[address] you [...] t he electric, gas, oil or water [employer] threatened to shut off services in your home? No 11/21/2023 Depression Answer Date Recorded Patient Health Questionnaire-2 Score 0 11/04/2024 Internet Access Answer Date Recorded Internet Access [...] Description 05/05/2025 1:30 PM EST Office Visit [facility] MEDICINE 230 [place] [address] Analisa Hansen MD [address] [place] [address] 05/19/2025 12:45 PM EST Office Visit [facility] ADULT DENTAL 230 [place] [address] Esme, Loly [address] [place] [address] documented as of this encounter Visit Diagnoses Not on filedocumented in this encounter Additional Health Concerns Assessment Noted Time PHQ-9 Depression Total Score: 0 11/05/19 25 1:24 PM EDT documented as of this encounter Care Teams Pumper Gauger Apprentice Relationship Specialty Start Date End Date Analisa Hansen MD [address] [place] [address] PCP - General Family Medicine 03/07/19 documented as of this encounter
--- OUTSIDE RECORDS SUMMARY | 2025-04-14 17:49 | XMS_ITS | Encounter Summary ---
Author Organization [employer] Address [address] [facility] 7t [place] [address] Care Team Providers Care Manager Pet Name Role Phone Analisa Hansen MD Primary Care Provide r Reason for Visit * Reason Comments Med Refill Encounter Details Date Type Department Care Team (Late st Contact Info) Description 01/29/2023 Refill [facility] ADULT DENTAL [address] [place] [address] Matt Kaplan, DMD [address] [place] [address] Dental caries Social History Tobacco Use Types [...] 05/05/2025 1:30 PM EST Office Visit [facility] MEDICINE 230 [place] [address] Analisa Hansen MD 230 [place] [address] 05/19/2025 12:45 PM EST Office Visit [facility] ADULT DENTAL 230 [place] [address] Devon Victoriaaris [address] [place] [address] documented as of this encounter Visit Diagnoses Diagnosis Dental caries Unspecified dental caries documented in this encounter Additional Health Concerns Assessment Noted Time PHQ-9 Depression Total Score: 12 023 11:55 AM EDT documented as of this encounter Care Teams Manager Pet Relationship Specialty Start Date End Date Analisa Hansen MD [address] [place] [address] PCP - General Family Medicine 03/07/19 documented as of this encounter
--- OUTSIDE RECORDS SUMMARY | 2025-04-14 17:49 | XMS_ITS | Encounter Summary ---
Author Organization [employer] Address [address] [place] [address] 7t [place] [address] Care Team Providers Care Airport Ramp Agent Name Role Phone Analisa Hansen MD Primary Care Provide r Reason for Visit * Reason Comments Med Change Request Encounter Details Date Type Department Care Team ([facility] st Contact Info) Description 05/09/2024 Refill [facility] MEDICINE 230 [place], [place] [phone] Analisa Hansen MD 230 [place], [place] [phone] Class 2 severe obesity with serious comorbidity [...] Description 05/05/2025 1:30 PM EST Office Visit [facility] MEDICINE [address] [place] [address] Analisa Hansen MD [address] [place] [address] 05/19/2025 12:45 PM EST Office Visit [facility] ADULT DENTAL [address] [place] [address] Esme, Loly [address] [place] [address] documented as of this encounter Visit Diagnoses Diagnosis Class 2 severe obesity with serious comorbidity and body mass index (BMI) of 38.0 to 38.9 in adult, unspecified obesity type documented in this encounter Additional Health Concerns Assessment Noted Time PHQ-9 Depression Total Score: 0 05/23/19 24 11:05 AM EST documented as of this encounter Care Teams Airport Ramp Agent Relationship Specialty Start Date End Date Analisa Hansen MD [address] [place] [address] PCP - General Family Medicine 03/07/19 documented as of this encounter
--- OUTSIDE RECORDS SUMMARY | 2025-04-14 17:49 | XMS_ITS | Encounter Summary ---
Author Organization [employer] Address [address] [place] [address] 7t [place] [address] Care Team Providers Care Peer Tutor Name Role Phone Analisa Hansen MD Primary Care Provide r Reason for Visit * Reason Comments Med Refill Encounter Details Date Type Department Care Team ([facility] st Contact Info) Description 01/09/2025 Refill [facility] MEDICINE 230 [place], [place] [phone] Name, MD Demian 230 [place], [place] [phone] Social History Tobacco Use Types Packs/Day Years [...] Description 05/05/2025 1:30 PM EST Office Visit [facility] MEDICINE 230 [place] [address] Analisa Hansen MD 230 [place] [address] 05/19/2025 12:45 PM EST Office Visit [facility] ADULT DENTAL 230 [place] [address] Esme, Loly [address] [place] [address] documented as of this encounter Visit Diagnoses Not on filedocumented in this encounter Additional Health Concerns Assessment Noted Time PHQ-9 Depression Total Score: 0 11/05/19 25 1:24 PM EDT documented as of this encounter Care Teams Peer Tutor Relationship Specialty Start Date End Date Analisa Hansen MD [address] [place] [address] PCP - General Family Medicine 03/07/19 documented as of this encounter
--- OUTSIDE RECORDS SUMMARY | 2025-04-14 17:49 | XMS_ITS | Encounter Summary ---
Author Organization [employer] Address [address] [place] [address] 7t [place] [address] Care Team Providers Care Lug Loader Name Role Phone Analisa Hansen MD Primary Care Provide r Reason for Visit * Reason Comments Med Change Request Encounter Details Date Type Department Care Team ([facility] st Contact Info) Description 05/27/2024 Refill [facility] 230 [place], [place] [phone] Analisa Hansen MD [address] [place], [place] [phone] Class 2 severe obesity with serious comorbidity [...] 1:30 PM EST Office Visit [facility] MED[facility]INE [address] [place] [address] Analisa Hansen MD [address] [place] [address] 05/19/2025 12:45 PM EST Office Visit [facility] ADULT DENTAL 230 [place] [address] Esme, Loly 230 [place] [address] documented as of this encounter Visit Diagnoses Diagnosis Class 2 severe obesity with serious comorbidity and body mass index (BMI) of 38.0 to 38.9 in adult, unspecified obesity type documented in this encounter Additional Health Concerns Assessment Noted Time PHQ-9 Depression Total Score: 0 05/23/19 24 11:05 AM EST documented as of this encounter Care Teams Lug Loader Relationship Specialty Start Date End Date Analisa Hansen MD [address] [place] [address] PCP - General Family Medicine 03/07/19 documented as of this encounter
--- OUTSIDE RECORDS SUMMARY | 2025-04-14 17:49 | XMS_ITS | Encounter Summary ---
Author Organization [employer] Address [address] [facility] 7t [place] [address] Care Team Providers Care Internal Combustion Engine Subassembler Name Role Phone Analisa Hansen MD Primary Care Provide r Reason for Visit * Reason Comments Med Refill Encounter Details Date Type Department Care Team ([facility] st Contact Info) Description 01/27/[address] [facility] MEDICINE 230 [place], [place] [phone] Analisa Hansen MD 230 [place], [place] [phone] Social History Tobacco Use Types Packs/Day Years [...] is your housing situation today? I have snigh graves 01/29/[address] you li ve. Do you have problems with any of the following? None of the above 01/29/2025 Food Insecurity Answer Date Recorded Within the past 12 months, y ou worried that your food would run out before you got money to buy more: Never True 01/29/2025 Within the past 12 months,th e food you bought just didn't last and you didn't have enough money to get more: Never True 11/2024 Transportation Answer Date Recorded In the past 12 months, has l ack of transportation kept you from medical appts, meetings, work or from getting things needed for daily living? No 01/29/2025 Utilities Answer Date Recorded In the past 12 months, has t he electric, gas, oil or water company threatened to shut off services in your home? No 01/29/2025 Depression Answer Date Recorded Patient Health Questionnaire-2 Score 0 11/04/2024 Internet Access Answer Date Recorded Internet Access Q1 Yes 01/29/2025 Internet Access Q2 Not on file 01/29/2025 Sex and Gender Information Value Date Recorded Sex Assigned at Male 02/21/2022 10:17 AM EDT Legal Sex Male 10:17 AM EDT Gender Identity Male 02/21/2022 10:17 AM EDT Sexual Orientation Straight 02/21/2022 10 :17 AM EDT documented as of this encounter Plan of Treatment Upcoming Encounters Date Type Department Care Team (Late st Contact Info) Description 05/05/2025 1:30 PM EST Office Visit [facility] MEDICINE 230 [place] [address] Analisa Hansen MD 230 [place] [address] 05/19/2025 12:45 PM EST Office Visit [facility] ADULT DENTAL 230 [place] [address] Esme, Loly 230 [place] [address] documented as of this encounter Visit Diagnoses Not on filedocumented in this encounter Additional Health Concerns Assessment Noted Time PHQ-9 Depression Total Score: 0 11/05/19 25 1:24 PM EDT documented as of this encounter Care Teams Internal Combustion Engine Subassembler Relationship Specialty Start Date End Date Analisa Hansen MD [address] [place] [address] PCP - General Family Medicine 03/07/19 documented as of this encounter
--- OUTSIDE RECORDS SUMMARY | 2025-04-14 17:49 | XMS_ITS | Encounter Summary ---
Author Organization [employer] Address [address] [place] [address] 7t [place] [address] Care Team Providers Care Information Developer Name Role Phone Analisa Hansen MD Primary Care Provide r Reason for Visit * Reason Comments Med Refill Encounter Details Date Type Department Care Team (Late Contact Info) Description 08/29/2022 Refill [facility] MEDICINE [address] [place] [address] [phone] Stephanie Segal FNP 230 [place], [place] [phone] Vitamin D deficiency Social History Tobacco Use [...] Department Care Team (Late Contact Info) Description 05/05/2025 1:30 PM EST Office Visit [facility] MEDICINE [address] [place] [address] Analisa Hansen MD 230 [place] [address] 05/19/2025 12:45 PM EST Office Visit [facility] ADULT DENTAL [address] [place], [place] [phone] Loly Victoria [address] [place] [address] documented as of this encounter Visit Diagnoses Diagnosis Vitamin D deficiency documented in this encounter Care Teams Information Developer Relationship Specialty Start Date End Date Analisa Hansen MD 230 [place] [address] PCP - General Family Medicine 03/07/19 documented as of this encounter
--- OUTSIDE RECORDS SUMMARY | 2025-04-14 17:49 | XMS_ITS | Encounter Summary ---
Author Organization [employer] Address [address] [place] [address] 7t [place] [address] Care Team Providers Care Product Development Manager Name Role Phone Analisa Hansen MD Primary Care Provide r Encounter Details Date Type Department Care Team (Late Contact Info) Description 08/30/2022 Abstract [facility] ADULT DENTAL 230 [place] [address] Matt Kaplan, DMD [address] [place] [address] Social History Tobacco Use Types Packs/Day Years [...] 1:30 PM EST Office Visit [facility] MEDICINE 230 [place] [address] Analisa Hansen MD 230 [place], [place] [phone] 05/19/2025 12:45 PM EST Office Visit [facility] ADULT DENTAL 230 [place], [place] [phone] Loly Victoria 230 [place], [place] [phone] documented as of this encounter Visit Diagnoses Not on filedocumented in this encounter Care Teams Product Development Manager Relationship Specialty Start Date End Date Analisa Hansen MD 230 [place] [address] PCP - General Family Medicine 03/07/19 documented as of this encounter
--- OUTSIDE RECORDS SUMMARY | 2025-04-14 17:49 | XMS_ITS | Encounter Summary ---
Author Organization [employer] Address [address] [place] [address] 7t [place] [address] Care Team Providers Care Cake Puller Name Role Phone Analisa Hansen MD Primary Care Provide r Reason for Visit * Reason Onset Date Comments Care Coordination 04/10/2025 Encounter Details Date Type Department Care Team ([facility] st Contact Info) Description 04/10/2025 Telephone [facility] MEDICINE 230 [place], [place] [phone] Analisa Hansen MD 230 [place] [address] Care Coordination Social History Tobacco Use Types Packs/Day Years Used Date Smoking Tobacco: Never Passive Smoke Exposure: Never Smokeless Tobacco: Never Alcohol Use Standard Drinks/Week Comments Never 0 (1 standard drink = 0.6 oz pur e alcohol) Depression Answer Date Recorded Patient Health Questionnaire-9 Score 13 02/06/2025 Patient Health Questionnaire-9 Score 13 02/06/2025 Last PHQ-9: Questionnaire Data Not on file 1 Housing Stability Answer Date Recorded What is your housing situation today? I have singh graves 01/29/[address] you [...] Answer Date Recorded Patient Health Questionnaire-2 Score 4 02/06/2025 Internet Access Answer Date Recorded Internet Access [...] encounter Miscellaneous Notes * Telephone Encounter - Paul Dueñas RN - 04/10/2025 9:32 AM EST TC placed to [facility] [phone] regarding referral. FD staff reported referral was never received. RN verbalized understanding. documented in this encounter Plan of Treatment Upcoming Encounters Date Type Department Care Team (Late st Contact Info) Description 05/05/2025 1:30 PM EST Office Visit [facility] MEDICINE [address] [place] [address] Analisa Hansen MD 230 [place] [address] 05/19/2025 12:45 PM EST Office Visit [facility] ADULT DENTAL 230 [place] [address] Loly Victoria [address] [place] [address] documented as of this encounter Visit Diagnoses Not on filedocumented in this encounter Additional Health Concerns Assessment Noted Time PHQ-9 Depression Total Score: 13 025 2:40 PM EDT documented as of this encounter Care Teams Cake Puller Relationship Specialty Start Date End Date Analisa Hansen MD 230 [place] [address] PCP - General Family Medicine 03/07/19 documented as of this encounter
--- OUTSIDE RECORDS SUMMARY | 2025-04-14 17:49 | XMS_ITS | Encounter Summary ---
Author Organization [employer] Address [address] [facility] 7t [place] [address] Care Team Providers Care Patient Advocate Name Role Phone Analisa Hansen MD Primary Care Provide r Encounter Details Date Type Department Care Team ([facility] st Contact Info) Description 05/09/2024 Orders Only [facility] [place] [facility] MEDICINE 230 [place], [place] [phone] Analisa Hansen MD 230 [place] [address] Social History Tobacco Use Types Packs/Day Years [...] Description 05/05/2025 1:30 PM EST Office Visit [facility] [place] [facility] MEDICINE 230 [place] [address] Analisa Hansen MD 230 [place] [address] 05/19/2025 12:45 PM EST Office Visit [facility] [place] [facility] ADULT DENTAL 230 [place] [address] Esme, Loly [address] [place] [address] documented as of this encounter Visit Diagnoses Not on filedocumented in this encounter Additional Health Concerns Assessment Noted Time PHQ-9 Depression Total Score: 0 05/23/19 24 11:05 AM EST documented as of this encounter Care Teams Patient Advocate Relationship Specialty Start Date End Date Analisa Hansen MD [address] [place] [address] PCP - General Family Medicine 03/07/19 documented as of this encounter
--- OUTSIDE RECORDS SUMMARY | 2025-04-14 17:49 | XMS_ITS | Clinical Summary ---
Author Organization [facility] Address [address] [place] [phone] Phone Care Team Providers Care Hospital Laboratory Technician Name Role Phone Analisa Su MD Primary Care Provider Encounters Date Type Department Care Team Description 03/11/2025 Transcribe Orders [facility] Rheumatology [address] [place] [address] Analisa Escobar MD Polyarthralgia (Primary Dx) 02/06/2025 Telephone [facility] Rheumatology [address] [place] [address] Unknown, Unknown, Referral from Last 3 Months Social History Tobacco Use Types Packs/Day Years Used Date Smoking Tobacco: Never Assessed Education Answer Date Recorded Are you interested in more education? Not on libertad e 03/12/2025 Are you concerned about learning? Not on file 03/12/2025 No 03/12/2025 No 03/12/2025 Digital Access Answer Date Recorded No 03/12/2025 No 03/12/2025 Reliable internet access at home? Not on file 03/12/2025 Device with a working camera? Not on file Sex and Gender Information Value Date Recorded Sex Assigned at Not on file Legal Sex Male 3:52 PM EDT Gender Identity Not on file Sexual Orientation Not on file Plan of Treatment Upcoming Encounters Date Type Department Care Team (Late st Contact Info) Description 06/04/2025 1:00 PM EST Office Visit [facility] Rheumatology [address] [place] [address] Roxane Hanna, DO [address] [facility], [address] [place] [address] [email or web address] Health Maintenance Due Date Last Done Comments Adult Td,Tdap Booster 1977 LIPID PANEL 1977 DEPRESSION SCREENING 1989 SMOKING Hx and SMOKELESS TOB ACCO SCREENING 1990 HEPATITIS C SCREENING 10/14/1995 HIV ONE-TIME SCREENING (18-6 5 YEARS) 10/14/1995 COLOGUARD 2022 COLONOSCOPY 2022 COLORECTAL CANCER SCREENING 2022 FIT TEST 2022 FOBT 2022 SIGMOIDOSCOPY 2022 VIRTUAL COLONOSCOPY 2022 INFLUENZA VACCINE (#1) 2024 COVID-19 VACCINE ( - 2024-2 6 season) 2024 HEPATITIS A VACCINES Aged Out No long er eligible based on patient's age to complete this topic HIB VACCINES Aged Out No longer eligi ble based on patient's age to complete this topic MENINGOCOCCAL VACCINES (ACWY) Aged Out No longer eligible based on patient's age to complete this topic MENINGOCOCCAL VACCINES (B) Aged Out N o longer eligible based on patient's age to complete this topic PNEUMOCOCCAL VACCINES (0-49 years) Aged Out No longer eligible based on patient's age to complete this topic Medical Devices Not on file Insurance [facility] ONE CARE MEDICARE REPLACEMENT [facility] CARE MEDICARE REPLACEMENT [facility] CARE MEDICARE REPLACEMENT [facility] MEDICARE REPLACEMENT [facility] CARE MEDICARE REPLACEMENT [facility] CARE MEDICARE REPLACEMENT Care Teams Hospital Laboratory Technician Relationship Specialty Start Date End Date Analisa Su MD [address] [place] [phone] PCP - General Internal Medicine 01/07/25 Additional Source Comments The information contained in this document represents components of the legal health record. It is not the complete legal health record.[facility]
--- OUTSIDE RECORDS SUMMARY | 2025-04-14 17:49 | XMS_ITS | Clinical Summary ---
Author Organization [employer] Address [address] [place] [address] [address] [place] [address] Care Team Providers Care Senior Producer Name Role Phone Analisa Hansen MD Primary Care Provide r Allergies No known active allergies Medications buPROPion (Wellbutrin) 75 MG tablet Take 75 mg by mouth in the morning. 3 Active citalopram (CeleXA) 10 MG tablet TAKE 1 TABLET BY MOUTH EVERY DAY IN THE MORNING DIRECTED 3 Active loratadine (Claritin) 10 MG tablet TAKE 1 TABLET BY MOUTH DAILY FOR ALLERGIC RHINITIS 3 Active Diclofenac Sodium 1 % gel APPLY 1 INCH TOPICALLY IF NEEDED IN THE MORNING AND AT BEDTIME FOR PAIN 100 g 4 Active fluticasone (Flonase Allergy Relief) 50 MCG/ACT nasal spray Administer 2 sprays into affected nostril(s) at bed time. 2 Active clonazePAM (KlonoPIN) 2 MG tablet Take 1 tablet by mouth if needed in the morning and at bedtime. Active propranolol LA (Inderal LA) 120 MG 24 hr capsule Take 1 capsule by mouth Once per day. 5 Active Blood Pressure kit 1 Units Once per day. 1 kit 5 Active cholecalciferol (D3-1000) 25 MCG (1000 UT) capsule TAKE 1 CAPSULE BY MOUTH EVERY DAY 90 capsule 1 5 Active pravastatin (Pravachol) 80 MG tabletIndicatio ns:Dyslipidemia Take 1 tablet (80 mg) by mouth Once per day. 30 tablet 11 5 11/05/19 26 Active omega-3 (Fish Oil) 1000 MG capsuleIndicati ons:Dyslipidemi a TAKE 1 CAPSULE (500 MG) BY MOUTH IN THE MORNING. 60 capsule 3 Active Acetaminophen Extra Strength 500 MG tablet TAKE 1 TABLET (500 MG) BY MOUTH EVERY 6 (SIX) HOURS IF NEEDED FOR MILD PAIN. 120 tablet Active cyclobenzaprine (Flexeril) 10 MG tablet Take 1 tablet (10 mg) by mouth if needed in the morning, at noon, and at bedtime for muscle spasms for up to 60 doses. 60 tablet Active Active Problems Problem Noted Date Diagnosed Date Decalcification of tooth 11/06/2024 Missing teeth, acquired 11/06/2024 Dental caries 11/06/2024 Class 2 severe obesity due t o excess calories with serious comorbidity and body mass index (BMI) of 38.0 to 38.9 in adult 11/04/2024 Assessment & Plan (02/06/2025 4:38 PM EDT): - Weight remains unchanged since last visit. - Referred to weight management program Assessment & Plan (11/04/2024 5:10 PM EDT): Extensive counseling about healthy diet and exercise done today Medication for weight loss was denied, extensive discussion about his comorbidities was done today I recommended for patient to go for bariatric procedure, patient will make an appointment and possibly start process Prediabetes 11/04/2024 Assessment & Plan (11/04/2024 5:11 PM EDT): Extensive discussion about healthy diet and exercise on today Abnormal MRI, lumbar spine 09/13/2024 Lumbar radiculopathy 09/13/2024 Assessment & Plan (02/06/2025 4:39 PM EDT): - Lumbar radiculopathy with persistent symptoms despite prior physical therapy. - Referred to 4 h youth development specialist ([facility]). Continue home exercise regimen. Follow-up in 3 months to assess specialist evaluation. Assessment & Plan (11/04/2024 5:10 PM EDT): Advised to start his physical therapy and continue with pain medications as needed and to follow-up with specialist Renal cyst 09/09/2024 Assessment & Plan (09/09/2024 3:13 PM EDT): I will order a renal ultrasound to monitor renal cyst and after I will refer patient back to urology Class 2 severe obesity due t o excess calories with serious comorbidity and body mass index (BMI) of 37.0 to 37.9 in adult 09/09/2024 Assessment & Plan (09/09/2024 3:15 PM EDT): Patient has tried multiple times with healthy diet and exercise and he has no success instead of losing weight it seems like he is gaining weight I will prescribe for patient Zepbound 2.5 mg weekly, phentermine is contraindicated in his case due to uncontrolled anxiety and palpitations with verified sinus tachycardia, patient is currently taking propranolol 120 mg daily for his sinus tachycardia and is in follow-up by cardiology Sinus tachycardia 06/25/2024 Assessment & Plan (02/06/2025 4:38 PM EDT): - Sinus tachycardia previously present, currently improved with propranolol. - Continue propranolol as prescribed. Referred to cardiology for ongoing management. Monitor heart rate with Apple Watch daily. Assessment & Plan (09/09/2024 3:13 PM EDT): Continue to take propranolol 120 mg daily Continue to follow-up with cardiology Assessment & Plan (06/25/2024 3:43 PM EST): [...] prescribe Essential hypertension 09/07/2022 Assessment & Plan (02/06/2025 4:37 PM EDT): - Blood pressure currently well controlled. - Continue current antihypertensive regimen. Referred to cardiology for further evaluation. Follow-up in 3 months. Assessment & Plan (09/09/2024 3:12 PM EDT): I advised low-sodium diet, weight reduction and continue taking medications as prescribed Assessment & Plan (05/22/2024 12:06 PM EST): [...] Na diet Dyslipidemia 09/07/2022 Assessment & Plan (02/06/2025 4:39 PM EDT): - Triglycerides previously elevated, recent improvement noted. No recent laboratory testing since October. - Plan for repeat laboratory testing next year to allow time for medication effect. Continue current regimen. Assessment & Plan (05/24/2023 11:33 AM EST): [...] cardiovascular exercise Patient will be refer to principal java software engineer Assessment & Plan (10/26/2022 11:10 AM EDT): Today extensive discussion was done about life style modifications I advise healthy diet (low calorie) and cardiovascular exercise Restless legs syndrome (RLS) 09/07/2022 Lumbar spondylosis 06/04/2018 Assessment & Plan (09/09/2024 3:14 PM EDT): Last MRI was done on July 2023, I will repeat an MRI to see if there is any progression and if he needs to be refer to neurosurgery Assessment & Plan (05/08/2024 4:09 PM EST): [...] bariatric specialist I advise to come to [facility] when pain is present, also [...] and depressive disorder 07/02/2012 Assessment & Plan (02/06/2025 4:39 PM EDT): - Anxiety and depression stable. Patient has therapist, no psychiatrist involved. No acute concerns. - Continue current mental health management. No changes to therapy at this time. Assessment & Plan (09/09/2024 3:13 PM EDT): Continue to follow-up with therapist and psychiatrist Continue to take medication as prescribed Assessment & Plan (09/07/2022 3:54 PM EDT): Patient follow with therapist ans psychiatrist his medications are prescribed by specialist Hypertriglyceridemia 07/02/2012 Impaired fasting glucose 07/02/2012 Obstructive sleep apnea syndrome 11/18/2011 Assessment & Plan (11/04/2024 5:11 PM EDT): Extensive discussion about weight loss done today, patient will go for possible bariatric procedure Assessment & Plan (01/25/2023 9:54 AM EDT): Patient reports he uses his CPAP every night I advise weight reduction Encounters Date Type Department Care Team Description 04/10/[address] [address] Analisa Hansen MD Care Coordination 02/06/2025 2:30 PM EDT Office Visit [address] [address] Analisa Hansen MD Essential hypertension (Primary Dx); Sinus tachycardia; Class 2 severe obesity due to excess calories with serious comorbidity and body mass index (BMI) of 38.0 to 38.9 in adult; Lumbar radiculopathy; Mixed anxiety and depressive disorder; Dyslipidemia; Encounter for immunization 02/06/2025 Travel 02/05/[address] [address] Analisa Hansen MD Chart Prep 01/29/2025 Patient Outreach [address] [phone] Analisa Hansen MD Pre-visit Planning (SDOH screening negative and tobacco screening negative) 01/27/[address] [address] Analisa Hansen MD from Last 3 Months Immunizations Immunization Administration Dates Next Due Influenza Injectable Quadriv alant Preservative Free IIV4 MDCK 05/16/2018 Influenza injectable quadriv alent IIV4 with preservative 01/06/2017 Influenza injectable quadriv alent preservative free 05/23/2023,03/03/2021,01/09/2020,2019 Influenza, IIV3, injectable 02/05/2014, 1 Influenza, Split (incl. arnulfo fied surface antigen) 02/27/2013 Influenza, seasonal, injecta ble, preservative free 02/06/2025 TD (adult), 2 Lf tetanus tox oid, [...] housing situation today? I have singhgeri graves 01/29/[address] you [...] Sign Reading Time Taken Comments Blood Pressure 128/82 02/06/2025 2:39 PM EDT Pulse 88 02/06/2025 2:39 PM EDT Temperature 33.3 C (92 F) 02/06/2025 2:39 PM EDT Respiratory Rate 17 02/06/2025 2:39 PM EDT Oxygen Saturation 96% 02/06/2025 2:39 PM EDT Inhaled Oxygen Concentration - - Weight 115 kg (253 lb 12.8 oz) 02/06/2025 2:39 P M EDT Height 172.7 cm (5' 8 ) 02/06/2025 2:39 PM EDT Body Mass Index 38.59 02/06/2025 2:39 PM EDT Plan of Treatment Upcoming Encounters Date Type Department Care Team (Late st Contact Info) Description 05/05/2025 1:30 PM EST Office Visit [facility] [address] [place] [address] Analisa Hansen MD [address] [place] [address] 05/19/2025 12:45 PM EST Office Visit [facility] [address] [place] [address] Loly Victoria [address] [place] [address] Health Maintenance Due Date Last Done Comments CT Colonography 1975 Colonoscopy 1977 FIT 1977 Sigmoidoscopy 1975 Family Planning (PISQ) 1992 Hepatitis B Vaccines (1 of 3 - 19+ 3-dose series) 1996 DTaP/Tdap/Td Vaccines (2 - Td or Tdap) 02/06/2024 02/05/2014, 12/11/2008 FOBT 02/11/2024 02/10/2023 COVID-19 Vaccine ( season) 2024 02/11/2022, 04/01/2021, 08/01/2020 Dental Oral Exam 05/10/2025 11/06/2024, 12/2023, 09/12/2022 Dental Prophylaxis 05/10/2025 11/06/2024, 0 05/03/2024, 01/31/2024, Additional history exists Depression Monitoring 08/07/2025 02/06/2025, 025 Dental X-Ray: Full Mouth 09/13/2025 09/12/2022 Diabetes: Hemoglobin A1C 10/23/2025 025, 11/23/2023, 02/08/2023, Additional history exists Disability Screening 11/04/2025 11/04/2024 Dental X-Ray: Bitewings 11/07/2025 11/07/19 25, 01/31/2024, 09/12/2022, Additional history exists SDOH Screening 01/29/2026 01/29/2025 Alcohol/Substance Use Screening 02/06/2026 02/06/2025 Tobacco Screening 02/06/2026 02/06/2025 Colorectal Cancer Screening 02/10/2026 FIT DNA/Cologuard 02/10/2026 02/10/2023 Zoster Vaccines (1 of 2) 10/14/2027 Lipid Panel 10/23/2029 10/23/2024, 08/04/2023, 11/23/2023, Additional history exists RSV Patients and Patients Aged 60 years or older (1 - 1-dose 75+ series) 2052 HIV Screening Completed 10/23/2024, 01/22, 01/17/2020 Hepatitis C Screening Completed 10/23/2024, 023 Influenza Vaccine Completed 02/06/2025, , 03/03/2021, Additional history exists HIB Vaccines Aged Out No longer eligi [...] patient's age to complete this topic Meningococcal B Vaccine Aged Out No l onger eligible based on patient's age to complete this topic Meningococcal Vaccine Aged Out No clara marta eligible based on patient's age to complete this topic Pneumococcal Vaccine: Pediatrics (0 to 5 Years) and At-Risk Patients (6 to 49) Years Aged Out No longer eligible based on patient's age to complete this topic RSV under 20 months Aged Out No longe r eligible based on patient's age to complete this topic Rotavirus Vaccines Aged Out No longer eligible based on patient's age to complete this topic Procedures Procedure Name Priority Date/Time Associated Diagnosis Comments US RENAL COMPLETE Routine 02/12/2025 1:0 0 PM EDT PROPHYLAXIS - ADULT Routine 11/06/2024 1 :00 PM EDT Dental plaque on multiple teeth Decalcification of tooth Missing teeth, acquired BITEWINGS - 4 RADIOGRAPHIC IMAGES Routine 11/06/2024 1:00 PM EDT Dental plaque on multiple teeth Decalcification of tooth Missing teeth, acquired PERIODIC ORAL EVALUATION - ESTABLISHED PATIENT Routine 11/06/2024 1:00 PM EDT HEPATITIS C AB W/REFL TO HCV RNA, QN, PCR Routine 10/23/2024 9:34 AM EDT Obesity (BMI 30-39.9) Essential hypertension HIV 1/2 ANTIGEN/ANTIBODY, FOURTH GENERATION W/RFL Routine 10/23/2024 9:34 AM EDT Obesity (BMI 30-39.9) Essential hypertension HEMOGLOBIN A1C Routine 10/23/2024 9:34 AM EDT Obesity (BMI 30-39.9) Essential hypertension LIPID PANEL, STANDARD Routine 10/23/2024 9:34 AM EDT Obesity (BMI 30-39.9) Essential hypertension LAB COLOGUARD COLON CANCER SCREEN Routine 02/10/2023 1:30 PM EDT Colon cancer screening INTRAORAL - COMPLETE SERIES OF RADIOGRAPHIC IMAGES Routine 09/12/2022 1:00 PM EDT Dental caries from Last 3 Months or Most Recently Relevant to Health Maintenance Results * US Renal Complete (02/12/2025 1:00 PM EDT) Anatomical Region Laterality Modality Kidney Ultrasound 02/12/2025 1:00 PM EDT Narrative 02/12/2025 1:17 PM EDT [address] [address] Ultrasound Report Signed Patient: Boy Steen MR#: [id number] : 1975 Acct:[id number] Age/Sex: 49 / M ADM Date: 02/12/25 Loc: HO.US Attending Dr: Analisa Cline MD Ordering Physician: Analisa Hansen MD Date of Service: 02/12/25 Procedure(s): US renal BI Accession Number(s): [id number] cc: Analisa Hansen MD Reason for Exam: monitoring of renal cyst EXAMINATION: US RETROPERITONEAL LIMITED (RENAL ONLY) CLINICAL INFORMATION: Renal cysts. Follow-up.. COMPARISON: Correlated to CT abdomen and pelvis dated April 04, 2017. TECHNIQUE: Real-time ultrasound kidneys using grayscale technique. FINDINGS: RIGHT KIDNEY: 11 x 6 x 5 cm (SAG x AP x TRV). Volume: 179 cc normal echotexture. Renal cortical thickness is normal. No hydronephrosis. No gross solid or cystic lesion. LEFT KIDNEY: 11 x 6 x 5 cm (SAG x AP x TRV). . Volume: 177 cc normal echotexture. Renal cortical thickness is normal. No hydronephrosis. No solid or cystic lesion. US/US renal BI IMPRESSION: No hydronephrosis. No renal cysts. Limited by patient's body habitus.. Electronically signed by: Austen Cortez MD 02/12/2025 01:14 PM EDT Dictated By: Austen Najera MD Signed By: <Electronically signed by Austen Toth MD in OV> 02/12/25 1314 DD/ 1300 TD/TT: 02/12/25 1304 Supervisor Rough End: Procedure Note Donotuseinterpreter, Image - 02/12/[address] [place] [address] Ultrasound Report Signed Patient: Boy Steen MR#: [id number] : 1975Acct:[id number] Age/Sex: 49 / MADM Date: 02/12/25 Loc: HO.US Attending Dr: Analisa Cline MD Ordering Physician: Analisa Hansen MD Date of Service: 02/12/25 Procedure(s): US renal BI Accession Number(s): [id number] cc: Analisa Hansen MD Reason for Exam: monitoring of renal cyst EXAMINATION: US RETROPERITONEAL LIMITED (RENAL ONLY) CLINICAL INFORMATION: Renal cysts. Follow-up.. COMPARISON: Correlated to CT abdomen and pelvis dated April 04, 2017. TECHNIQUE: Real-time ultrasound kidneys using grayscale technique. FINDINGS: RIGHT KIDNEY: 11 x 6 x 5 cm (SAG x AP x TRV). Volume: 179 cc normal echotexture. Renal cortical thickness is normal. No hydronephrosis. No gross solid or cystic lesion. LEFT KIDNEY: 11 x 6 x 5 cm (SAG x AP x TRV). . Volume: 177 cc normal echotexture. Renal cortical thickness is normal. No hydronephrosis. No solid or cystic lesion. US/US renal BI IMPRESSION: No hydronephrosis. No renal cysts. Limited by patient's body habitus.. Electronically signed by: Austen Cortez MD 02/12/2025 01:14 PM EDT Dictated By: Austen Najera MD Signed By: <Electronically signed by Austen Toth MDin OV> 02/12/25 1314 DD/ 1300 TD/TT: 02/12/25 1304 Supervisor Rough End: us Analisa Cline MD IMG US PROCEDURES Fin al Result * Hepatitis C Antibody with Reflex to HCV, RNA, Quantitative, Real-Time PCR (10/23/2024 9:34 AM EDT) Hepatitis C Antibody Nonreactive Nonreactive [facility] Comment:Antibodies to HCV no t detected; does not exclude early acuteHCV infection. Blood Venous blood specimen / Unknown 10/23/2024 9:34 AM EDT 10/23/2024 11:03 AM EDT us Analisa Cline MD LAB BLOOD ORDERABLES Final Result Performing Organization Address [facility]/ZIP Co de Phone Number [facility] [address] [place] [phone] * HIV-1/2 Antigen and Antibodies, Fourth Generation, with Reflexes (10/23/2024 9:34 AM EDT) HIV AB/AG Nonreactive Nonreactive [facility] Comment:HIV-1 p24 Ag and/or HIV-1/HIV-2 Ab not detected.A test result that is nonreactive does not exclude thepossibility of exposure to or infection with HIV-1 and/orHIV-2. Nonreactive results in this assay for individualswith prior exposure to HIV-1 and/or HIV-2 may be due toantigen and antibody levels that are below the limit ofdetection of this assay.The Mixx HIV Ag/Ab Combo assay result andsupplemental assay results should be interpreted inconjunction with the patient's clinical presentation,history and other laboratory results. If the results areinconsistent with clinical evidence, additional testing issuggested to confirm the result. Blood Venous blood specimen / Unknown 10/23/2024 9:34 AM EDT 10/23/2024 11:03 AM EDT us Analisa Cline MD LAB BLOOD ORDERABLES Final Result Performing Organization Address City/[facility]/ZIP Co de Phone Number [facility] [address] [place] [phone] [phone] * Hemoglobin A1c (10/23/2024 9:34 AM EDT) Hemoglobin A1c 5.9 <6.0 % [facility] Comment:Hemoglobin A1C Refer ence Range Adults: 4.8 - 6.0 % Non diabetic: < 6.0 % Goal: < 7.0 %Additional Action Suggested: > 8.0 %Note: Hemoglobin A1c results are invalid for patients with abnormal amounts of HbF. Blood transfusions may impact the HbA1c concentration in the patient sample. Estimated Average Glucose 123 mg/dL [facility] Comment:eAG = Estimated ave rage glucose which is %A1C expressed asaverage glucose, using the formula of the O1J-BmpolqaQuajwmd Glucose study (ADAG), Diabetes Care, Vol.31,#8,Nov. 2007 Blood Venous blood specimen / Unknown 10/23/2024 9:34 AM EDT 10/23/2024 11:03 AM EDT us Analisa Cline MD LAB BLOOD ORDERABLES Final Result [facility] [address] [place] [phone] [phone] * (ABNORMAL) Lipid Panel, Standard (10/23/2024 9:34 AM EDT) Triglycerides 300(H) <150 mg/dL [facility] Comment:Desirable Triglyceri de: less than 150 mg/dLBorderline High Triglyceride 150-199 mg/dLHigh Triglyceride: 200-499 mg/dLVery High Triglyceride: greater than or equal to 5OO mg/dL Cholesterol 116 <200 mg/dL [facility] Comment:Desirable Cholestero l: less than 200 mg/dLBorderline High Cholesterol: 200-239 mg/dLHigh Cholesterol: greater than 239 mg/dL LDL Cholesterol Calculated 38 <100 mg/dL [facility] Comment:Desirable LDL: less than 100 mg/dLNear Optimal/Above Optimal LDL: 110- 129 mg/dLBorderline High LDL: 130-159 mg/dLHigh LDL: 160-189 mg/dLVery High LDL: greater than or equal to 190 mg/dL HDL Cholesterol 18(L) >40 mg/dL [facility] Comment:Desirable HDL: great er than 40 mg/dL Note: This HDL assay may give artificially low results in patients with liver disease. Blood Venous blood specimen / Unknown 10/23/2024 9:34 AM EDT 10/23/2024 11:03 AM EDT Analisa Cline MD LAB BLOOD ORDERABLES Final Result [facility] [address] [place] [phone] [phone] * Cologuard?? colon cancer screening (02/10/2023 1:30 PM EDT) Cologuard Result Negative Negative 02/19/20 11:27 AM EDT [facility] (CLIA #:[id number]) Comment: NEGATIVE TEST RESULT. A negative Cologuard result indicates a low likelihood that a colorectal cancer (CRC) or advanced adenoma (adenomatous polyps with more advanced pre-malignant features) is present. The chance that a person with a negative Cologuard test has a colorectal cancer is less than 1 in 1500 (negative predictive value >99.9%) or has an advanced adenoma is less than 5.3% (negative predictive value 94.7%). These data are based on a prospective cross-sectional study of 10,000 individuals at average risk for colorectal cancer who were screened with both Cologuard and colonoscopy. (Jimbo Bermudez al, N Engl J Med 2014;370(14):8686-7647) The normal value (reference range) for this assay is negative. COLOGUARD RE-SCREENING RECOMMENDATION: Periodic colorectal cancer screening is an important part of preventive healthcare for asymptomatic individuals at average risk for colorectal cancer. Following a negative Cologuard result, the [place] [employer] and U.S. Multi-Society Task Force screening guidelines recommend a Cologuard re-screening interval of 3 years. References: [place] [employer] Guideline for Colorectal Cancer Screening: https://www.cancer.org/cancer/ufrep-qwdhek-wiuido/hpvyckwsm-pihoucelb-gcgsvfr/ac s-rec ommendations.html.; Kirill PENA, Chandana MEDEIROS, Edith SONG, Colorectal Cancer Screening: Recommendations for Physicians and Patients from the U.S. Multi-Society Task Force on Colorectal Cancer Screening , Am J Gastroenterology 2017; 112:5328-8741. TEST DESCRIPTION: Composite algorithmic analysis of stool DNA-biomarkers with hemoglobin immunoassay. Quantitative values of individual biomarkers are not [...] Antonio et al, N Engl J Med 2014;370(14):0942-1941.) Cologuard may produce a false negative or false positive result (no colorectal cancer or precancerous polyp present at colonoscopy follow up). A negative Cologuard test result does not guarantee the absence of CRC or advanced adenoma (pre-cancer). The current Cologuard screening interval is every 3 years. ([place] [employer] and U.S. Multi-Society Task Force). Cologuard performance data in a 10,000 patient pivotal study using colonoscopy as the reference method can be accessed at the following location: www.[employer]/results. Additional description of the Cologuard test process, warnings and precautions can be found at www.[employer].com. Stool specimen (specimen) 02/10/2023 1:30 PM EDT 02/13/2023 11:32 AM EDT Analisa Cline MD LAB MOLECULAR DIAGNOS TICS ORDERABLES Final Result [facility] (CLIA #:[id number]) [address] [place] [address], [place] [phone] from Last 3 Months or Most Recently Relevant to Health Maintenance Insurance [facility] - [facility] [place] [id number] [address] [id number] Care Teams Senior Producer Relationship Specialty Start Date End Date Analisa Hansen MD [address] [place] [address] [address] [address] PCP - General Family Medicine 03/07/19
--- OUTSIDE RECORDS SUMMARY | 2025-04-14 17:49 | XMS_ITS | Encounter Summary ---
Author Organization [employer] Address [address] [facility] [address] [place] [address] Care Team Providers Care Cellophane Press Operator Name Role Phone Analisa Hansen MD Primary Care Provide r Reason for Visit * Reason Onset Date Comments new appt 07/28/2023 Encounter Details Date Type Department Care Team ([facility] st Contact Info) Description 07/28/2023 Telephone [facility] [address] [place] [address] Matt Kaplan, LELIA [address] [place] [address] new appt Social History Tobacco Use Types [...] Description 05/05/2025 1:30 PM EST Office Visit [facility] [address] [place] [address] Analisa Hansen MD [address] [place] [address] 05/19/2025 12:45 PM EST Office Visit [facility] [address] [place] [address] Esme, Loly [address] [place] [address] documented as of this encounter Visit Diagnoses Not on filedocumented in this encounter Additional Health Concerns Assessment Noted Time PHQ-9 Depression Total Score: 0 05/23/19 24 11:05 AM EST documented as of this encounter Care Teams Cellophane Press Operator Relationship Specialty Start Date End Date Analisa Hansen MD [address] [place] [phone] PCP - General Family Medicine 11/14/19 documented as of this encounter
--- OUTSIDE RECORDS SUMMARY | 2025-04-14 17:49 | XMS_ITS | Encounter Summary ---
Author Organization [employer] Address [address] [place] [address] 7t [place] [address] Care Team Providers Care Prune Washer Name Role Phone Analisa Hansen MD Primary Care Provide r Reason for Visit * Reason Comments Med Change Request Encounter Details Date Type Department Care Team ([facility] st Contact Info) Description 05/09/2024 Refill [facility] [address] [place], [place] [phone] Analisa Hansen MD [address] [place], [place] [phone] Class 2 severe obesity with serious comorbidity [...] Description 05/05/2025 1:30 PM EST Office Visit [facility] [address] [place] [address] Analisa Hansen MD [address] [place] [address] 05/19/2025 12:45 PM EST Office Visit [facility] ADULT DENTAL [address] [place] [address] Esme, Loly [address] [place] [address] documented as of this encounter Visit Diagnoses Diagnosis Class 2 severe obesity with serious comorbidity and body mass index (BMI) of 38.0 to 38.9 in adult, unspecified obesity type documented in this encounter Additional Health Concerns Assessment Noted Time PHQ-9 Depression Total Score: 0 05/23/19 24 11:05 AM EST documented as of this encounter Care Teams Prune Washer Relationship Specialty Start Date End Date Analisa Hansen MD [address] [place] [phone] PCP - General Family Medicine 03/07/19 documented as of this encounter
--- OUTSIDE RECORDS SUMMARY | 2025-04-14 17:49 | XMS_ITS | Encounter Summary ---
Author Organization [employer] Address [address] [place] [address] 7t [place] [address] Care Team Providers Care Handle Bar Assembler Name Role Phone Analisa Hansen MD Primary Care Provide r Reason for Visit * Reason Comments Med Change Request Encounter Details Date Type Department Care Team ([facility] st Contact Info) Description 05/29/2024 Refill [facility] [address] [place], [place] [phone] Analisa Hansen MD [address] [place], [place] [phone] Class 2 severe obesity with serious comorbidity [...] Office Visit [facility] [address] [place] [address] Analisa Hansen MD [address] [place] [address] 05/19/2025 12:45 PM EST Office Visit [facility] ADULT DENTAL [address] [place] [address] Esme, Loly [address] [place] [address] documented as of this encounter Visit Diagnoses Diagnosis Class 2 severe obesity with serious comorbidity and body mass index (BMI) of 38.0 to 38.9 in adult, unspecified obesity type documented in this encounter Additional Health Concerns Assessment Noted Time PHQ-9 Depression Total Score: 0 05/23/19 24 11:05 AM EST documented as of this encounter Care Teams Handle Bar Assembler Relationship Specialty Start Date End Date Analisa Hansen MD [address] [place] [id number] PCP - General Family Medicine 03/07/19 documented as of this encounter
--- OUTSIDE RECORDS SUMMARY | 2025-04-14 17:49 | XMS_ITS | Encounter Summary ---
Author Organization [employer] Address [address] [place] [address] 7[address] [place] [address] Care Team Providers Care Cold Mill Inspector Name Role Phone Analisa Hansen MD Primary Care Provide r Reason for Visit * Reason Comments Med Refill Encounter Details Date Type Department Care Team (Late st Contact Info) Description 12/29/2022 Refill [facility] [address] [place] [address] [phone] Victoria Gonsalves ANP [address] [place], [place] [phone] Shortness of breath Social History Tobacco Use [...] 1:30 PM EST Office Visit [facility] MEDICINE [address] [place] [address] [phone] Analisa Hansen MD [address] [place], [place] [phone] 05/19/2025 12:45 PM EST Office Visit [facility] ADULT DENTAL [address] [place] [address] Loly Victoria [address] [place] [address] documented as of this encounter Visit Diagnoses Diagnosis Shortness of breath documented in this encounter Additional Health Concerns Assessment Noted Time PHQ-9 Depression Total Score: 12 023 11:55 AM EDT documented as of this encounter Care Teams Cold Mill Inspector Relationship Specialty Start Date End Date Analisa Hansen MD [address] [place] [address] PCP - General Family Medicine 03/07/19 documented as of this encounter
--- OUTSIDE RECORDS SUMMARY | 2025-04-14 17:49 | XMS_ITS | Encounter Summary ---
Author Organization [employer] Address [address] [place] [address] 7t [place] [address] Care Team Providers Care Delivery Route Driver Name Role Phone Analisa Hansen MD Primary Care Provide r Reason for Visit * Reason Onset Date Comments Med Refill 10/17/2024 Encounter Details Date Type Department Care Team ([facility] st Contact Info) Description 10/17/[address] [facility] MED[facility] [address] [place], [place] [phone] Analisa Hansen MD [address] [place] [address] Social History Tobacco Use Types Packs/Day Years [...] 05/05/2025 1:30 PM EST Office Visit [facility] MED[facility] [address] [place] [address] Analisa Hansen MD [address] [place] [address] 05/19/2025 12:45 PM EST Office Visit [facility] ADULT DENTAL [address] [place] [address] Esme, Loly [address] [place] [address] documented as of this encounter Visit Diagnoses Not on filedocumented in this encounter Additional Health Concerns Assessment Noted Time PHQ-9 Depression Total Score: 0 05/23/19 24 11:05 AM EST documented as of this encounter Care Teams Delivery Route Driver Relationship Specialty Start Date End Date Analisa Hansen MD [address] [place] [phone] PCP - General Family Medicine 03/07/19 documented as of this encounter
--- OUTSIDE RECORDS SUMMARY | 2025-04-14 17:49 | XMS_ITS | Encounter Summary ---
Author Organization [employer] Address [address] [facility] 7[address] [place] [address] Care Team Providers Care Production Proofreader Name Role Phone Analisa Hansen MD Primary Care Provide r Reason for Visit * Reason Comments Med Refill Encounter Details Date Type Department Care Team (Late st Contact Info) Description 02/28/2023 Refill [facility] ADULT DENTAL [address] [place], [place] [phone] Emil Aparicio, DMD [address] [place], [place] [phone] Dental caries Social History Tobacco Use Types [...] Description 05/05/2025 1:30 PM EST Office Visit [facility] MEDICINE [address] [place] [address] Analisa Hansen MD [address] [place] [address] 05/19/2025 12:45 PM EST Office Visit [facility] ADULT DENTAL [address] [place] [address] Devon Victoriaaris [address] [place] [address] documented as of this encounter Visit Diagnoses Diagnosis Dental caries Unspecified dental caries documented in this encounter Additional Health Concerns Assessment Noted Time PHQ-9 Depression Total Score: 12 023 11:55 AM EDT documented as of this encounter Care Teams Production Proofreader Relationship Specialty Start Date End Date Analisa Hansen MD [address] [place] [phone] PCP - General Family Medicine 03/07/19 documented as of this encounter
--- OUTSIDE RECORDS SUMMARY | 2025-04-14 17:49 | XMS_ITS | Encounter Summary ---
Author Organization [employer] Address [address] [place] [address] 7t [place] [address] Care Team Providers Care Rfid Manager Name Role Phone Analisa Hansen MD Primary Care Provide r Reason for Referral * Consultation (Routine) - Closed Specialty Diagnoses / Procedures Referred By Estevan baker Referred To Contact Rheumatology Diagnoses Polyarthralgia Lumbar spondylosis Analisa Hansen MD [address] [place] [phone] Phone: tel: fax: [facility] [address] [place] [phone] Phone: tel: fax: Referral ID Status Reason Start Date Expiration Date V isits Requested Visits Authorized [id number] Closed Specialty Services Required 01/14/2025 01/14/2026 1 1 Scheduling Instructions Patient will like to be referred to [facility] thank you Encounter Details Date Type Department Care Team (Late st Contact Info) Description 01/09/[address] [facility] [address] [place] [phone] Analisa Hansen MD [address] [place], [place] [phone] Polyarthralgia (Primary Dx); Lumbar spondylosis Social History Tobacco Use Types Packs/Day Years [...] EST Office Visit [facility] [address] [place] [address] Analisa Hansen MD [address] [place] [address] 05/19/2025 12:45 PM EST Office Visit [facility] ADULT DENTAL [address] [place] [address] Loly Victoria [address] [place] [address] Scheduled Referrals Name Type Priority Associated Diagnoses Orde r Schedule Referral to Rheumatology Outpatient Referral Routine Polyarthralgia Lumbar spondylosis Expected: 01/14/2025 (Approximate), Expires: 01/14/2026 documented as of this encounter Visit Diagnoses Diagnosis Polyarthralgia- Primary Pain in joint, multiple sites Lumbar spondylosis Lumbosacral spondylosis without myelopathy documented in this encounter Additional Health Concerns Assessment Noted Time PHQ-9 Depression Total Score: 0 11/05/19 25 1:24 PM EDT documented as of this encounter Care Teams Rfid Manager Relationship Specialty Start Date End Date Analisa Hansen MD [address] [place] [address] PCP - General Family Medicine 03/07/19 documented as of this encounter
== END 2025-04-14 15:01 | disposition home or self-care (01) ==
LOC: HO.HPS 14:23
PROVIDERS: PCP Internal Medicine; Visit Provider Internal Medicine
DX: G47.33 Obstructive sleep apnea (adult) (pediatric) (principal); R05.9 Cough, unspecified; J30.9 Allergic rhinitis, unspecified
CPT/HCPCS: 99213

== ENCOUNTER → 2025-04-14 14:22 | Outpatient (BNVA) | payer OTHER, SELFPAY | PROVIDERS: PCP Internal Medicine; Visit Provider Internal Medicine | DX: G47.33 Obstructive sleep apnea (adult) (pediatric) (principal); R05.9 Cough, unspecified; J30.9 Allergic rhinitis, unspecified; Z99.89 Dependence on other enabling machines and devices | CPT/HCPCS: 99212 ==